=== PATIENT | female | born 1945 | race Caucasian/White ===

== ENCOUNTER 2020-01-02 19:40 | Inpatient (IN) | payer MEDICARE ==
[~2020-01-02] VITALS: Ht 160 cm; Wt 49.5 kg
[2020-01-02 19:20] VITALS: BP 163/67
[2020-01-02] MEDS ORDERED: IV NORMAL SALINE 1000ML BAG 1,000 ML IV SCH (20:47)
[2020-01-02] MEDS ORDERED: ACETAMINOPHEN 650 MG SUPP.RECT. PR PRN (21:00)
[2020-01-02] MEDS ORDERED: DOCUSATE SODIUM 100 MG CAPSULE. PO PRN (21:00)
[2020-01-02] MEDS ORDERED: ACETAMINOPHEN 325 MG TABLET. PO PRN (21:00)
[2020-01-02] MEDS ORDERED: ALBUTEROL SULFATE 2.5 MG/3 ML NEBU. NEB PRN (21:00)
[2020-01-02] MEDS ORDERED: POLYETHYLENE GLYCOL 3350 17 GM PACKET. PO PRN (21:00)
[2020-01-02] MEDS: fentaNYL PF VIAL 100 MCG/2 ML VIAL IVP PRN (21:05)
[2020-01-02] MEDS: PSYLLIUM HUSK (SUGAR FREE) 1 PKT PACKET PO SCH (22:36)
[2020-01-02] MEDS: MONTELUKAST SODIUM 10 MG TABLET. PO SCH (22:36)
[2020-01-02 23:00] VITALS: BP 131/68
[2020-01-03] VITALS (12 sets, daily range): BP systolic 86–145; BP diastolic 37–73
[2020-01-03] MEDS: fentaNYL PF VIAL 100 MCG/2 ML VIAL IVP PRN (00:32)
[2020-01-03 04:25] LABS: BASO % 0 % (0-3); EOS # 0.1 x10^3/uL (0.0-0.7); EOS % 0 % (0-3); HEMATOCRIT 22.2 % (36.0-47.0); LYMPH # 0.6 x10^3/uL (1.0-4.8); LYMPH % 5 % (24-48); MEAN CORPUSCULAR HEMOGLOBIN 25 pg (25-35); MEAN CORPUSCULAR HGB CONC 30 g/dL (31-37); MEAN CORPUSCULAR VOLUME 82 fL (79-100); MONO % 8 % (0-9); NEUT # 10.3 x10^3/uL (1.8-7.7); NEUT % 86 % (31-73); PLATELET COUNT 208 x10^3/uL (140-400); RED CELL DISTRIBUTION WIDTH 17.7 % (11.5-14.5); WHITE BLOOD COUNT 11.9 x10^3/uL (4.0-11.0)
[2020-01-03 04:28] LABS: HEMOGLOBIN 6.7 g/dL (12.0-15.5)
[2020-01-03 04:40] LABS: PROTHROMBIN TIME PATIENT 14.8 SEC (11.7-14.0)
[2020-01-03] MEDS ORDERED: diphenhydrAMINE ORAL ELIXIR 12.5 MG/5 ML ML PO PRN (05:15)
[2020-01-03] MEDS ORDERED: diphenhydrAMINE HCL 25 MG CAPSULE PO PRN (05:15)
[2020-01-03] MEDS ORDERED: ACETAMINOPHEN 325 MG TABLET. PO PRN (05:15)
[2020-01-03 05:40] LABS: ALBUMIN 1.8 g/dL (3.4-5.0); ALBUMIN/GLOBULIN RATIO 0.4 (1.0-1.7); CALCIUM 7.7 mg/dL (8.5-10.1); GFR 54.3; POTASSIUM 3.5 mmol/L (3.5-5.1); TOTAL BILIRUBIN 0.3 mg/dL (0.2-1.0); TOTAL PROTEIN 6.8 g/dL (6.4-8.2)
[2020-01-03] MEDS: IPRATRPIUM/ALBUTEROL 0.5/2.5MG 3 ML NEBU. NEB SCH ×5 (07:22→22:00)
[2020-01-03] MEDS: HYDROcodone/APAP 5/325MG 1 TAB TABLET PO PRN ×3 (08:37→21:14)
[2020-01-03 09:06] LABS: % BANDS 12 % (0-9); % LYMPHS 6 % (24-48); % MONOS 7 % (0-10); % SEGS 75 % (35-66)
[2020-01-03 09:09] LABS: PLT ESTIMATE ADEQUATE (ADEQUATE)
[2020-01-03 09:10] LABS: ANISOCYTOSIS SLIGHT; POLYCHROMASIA SLIGHT
[2020-01-03 09:11] LABS: SCHISTOCYTES OCC; TEAR DROP CELLS OCC
--- NOTE | 2020-01-03 12:48 | HP ---
ADMIT DATE: 01/03/2020 CHIEF COMPLAINT: Fall/pelvic fracture. HISTORY OF PRESENT ILLNESS: The patient is a pleasant elderly female who fell and has a pelvic fracture. We have admitted the patient. We are consulting Orthopedics. She also is anemic. We are giving her transfusion currently. The patient is being examined on the medical floor where she is doing relatively well. PAST MEDICAL HISTORY: COPD, tobacco abuse although I think she has quit, chronic pain, arthritis, asthma, and constipation. ALLERGIES: CEPHALOSPORINS AND BUPROPION. FAMILY HISTORY: Hypertension. SOCIAL HISTORY: I think she quit smoking, no drinking or drugs. MEDICATIONS: Reviewed, please refer to the MRAD. REVIEW OF SYSTEMS: GENERAL: No history of weight change, weakness or fevers. SKIN: No bruising, hair changes or rashes. EYES: No blurred, double or loss of vision. NOSE AND THROAT: No history of nosebleeds, hoarseness or sore throat. HEART: No history of palpitations, chest pain or shortness of breath on exertion. LUNGS: Denies cough, hemoptysis, wheezing or shortness of breath. GASTROINTESTINAL: Denies changes in appetite, nausea, vomiting, diarrhea or constipation. GENITOURINARY: She complains of pelvic pain. NEUROLOGIC: She complains of weakness and falls. PSYCHIATRIC: No history of panic, anxiety or depression. ENDOCRINE: No history of heat or cold intolerance, polyuria or polydipsia. EXTREMITIES: Denies muscle weakness, joint pain, pain on walking or stiffness. PHYSICAL EXAMINATION: VITALS: Within normal limits and are stable. GENERAL: No apparent distress. Alert and oriented. HEENT: Normal cephalic atraumatic, external auditory canals are patent EYES: Extraocular muscles are intact, pupils are equally round and reactive to light and accommodation MUSCULOSKELETAL: Well developed, well nourished, good range of motion ENDOCRINE: No thyromegaly was palpated LYMPHATICS: No cervical chain or axillary nodes were noted HEMATOPOIETIC: No bruising NECK: Supple, no JVD, no thyromegaly was noted. LUNGS: She has decreased breath sounds consistent with COPD. HEART: RRR, S1, S2 present. Peripheral pulses intact, no obvious murmurs were noted. ABDOMEN: Soft, nontender. Positive bowel sounds no organomegaly, normal bowel sounds. EXTREMITIES: Without any cyanosis, clubbing, or edema. Pedal pulses intact, Homans sign is negative. NEUROLOGIC: Normal speech, normal tone. A and O x 3, moves all extremities, no obvious focal deficits. PSYCHIATRIC: Normal affect, normal mood. Stable. SKIN: No ulcerations or rashes, good skin turgor, no jaundice. VASCULAR: Good capillary refill, neurovascular bundle appears to be intact. LABORATORY DATA: Hemoglobin is 6.7. Sodium is low at 132. ASSESSMENT AND PLAN: Fall with pelvic fracture with incidental finding of anemia and hyponatremia. The patient has been admitted. We are transfusing her. We have consulted Orthopedics. PRN pain meds, IV fluids, home meds, DVT prophylaxis. Full code. Suspect she will need to go to [facility] in a couple of days. PEGGY SILVA DO DR: ALEKSANDRA/mari JOB#: [id number] / [id number]
[2020-01-03 15:48] LABS: BILIRUBIN,URINE SMALL (NEG); CLARITY,URINE CLEAR; COLOR,URINE YELLOW; NITRITE,URINE POSITIVE (NEG); PROTEIN,URINE 30 mg/dL (NEG-TRACE)
[2020-01-03 16:01] LABS: BACTERIA,URINE MANY /HPF (0-FEW); SQUAMOUS EPITHELIAL CELL,UR MANY /LPF; WBC,URINE >40 /HPF (0-4)
[2020-01-03 16:02] LABS: HYALINE CASTS, URINE MANY /HPF
--- NOTE | 2020-01-03 20:19 | CONS ---
DATE OF CONSULTATION: 01/03/2020 REQUESTING PHYSICIAN: Dr. Yao Tai. REASON FOR CONSULTATION: Pelvic fracture. HISTORY OF PRESENT ILLNESS: The patient is a 74-year-old female who sustained a fall about 6 days and has had difficulty walking in the meantime and she has had received a transfusion for anemia as well. She indicates no difficulties getting around previously prior to the fall, but has been painful since and also complains of some back pain. PAST MEDICAL HISTORY: Significant for COPD, history of smoking, arthritis, asthma, chronic pain, and constipation. PAST SURGICAL HISTORY: No significant surgical history. ALLERGIES: INCLUDE BUPROPION AND CEPHALOSPORINS. FAMILY HISTORY: Hypertension. SOCIAL HISTORY: Denies alcohol or drug use. Has a history of smoking, but quit years ago. REVIEW OF SYSTEMS: Significant for her hip pain, particularly bearing weight on the left leg, also has some back pain with movement. Denies any radiating pain, numbness, tingling in the extremities. No chest pain, shortness of breath, head injury or visual changes. No problem with upper extremity injury. PHYSICAL EXAMINATION: GENERAL: Pleasant, cooperative 74-year-old female, alert and oriented, no acute distress. EXTREMITIES: Examination of lower extremities, she has tenderness with movement or weightbearing around the left hip, groin area. Leg lengths are equal. She has normal examination of the right hip, bilateral knees and ankles. She has normal alignment, stability, bilateral shoulders, elbows, wrists. Intact motor function, distal pulses, sensation in both upper and lower extremities throughout. IMAGING: X-rays show a left superior and inferior pubic rami fractures that are acceptably aligned. IMPRESSION: Left superior and inferior pubic rami fractures and also has some L2 compression fracture, apparently indeterminant age. TREATMENT PLAN: I went over with her that in regard to her pubic rami fractures this is expected to be nonoperatively treated and I expect over the next several weeks that pain will be less and less. In the interim, she can have protected weightbearing with a walker or as necessary for her safety and continue medical management and pain control in the interim. All her questions were answered. GERRY PARISH MD DR: MCKENAN/mari JOB#: [id number] / [id number]
[2020-01-03] MEDS: PSYLLIUM HUSK (SUGAR FREE) 1 PKT PACKET PO SCH (21:14)
[2020-01-03] MEDS: MONTELUKAST SODIUM 10 MG TABLET. PO SCH (21:14)
[2020-01-04 03:40] VITALS: BP 133/60
[2020-01-04 06:49] LABS: HEMATOCRIT 27.7 % (36.0-47.0); HEMOGLOBIN 8.7 g/dL (12.0-15.5); RED BLOOD COUNT 3.34 x10^6/uL (3.50-5.40); RED CELL DISTRIBUTION WIDTH 16.8 % (11.5-14.5); WHITE BLOOD COUNT 5.5 x10^3/uL (4.0-11.0)
[2020-01-04 07:00] VITALS: BP 148/63
[2020-01-04] MEDS: IPRATRPIUM/ALBUTEROL 0.5/2.5MG 3 ML NEBU. NEB SCH ×5 (08:08→21:48)
--- NOTE | 2020-01-04 08:45 | NUR ---
SW following. Discussed with RN, pt from home, requiring 2L. RN advised no surgical plans- PT/OT ordered but have not worked with pt yet. SW will continue to follow.
--- NOTE | 2020-01-04 10:09 | PDOC ---
PROGRESS NOTES History of Present Illness History of Present Illness ASSESSMENT AND PLAN: Fall with pelvic fracture Left superior and inferior pubic rami fractures and also has some L2 compression fracture, apparently indeterminant age. anemia , normocytic hyponatremia. possible SIADH SEVERE protein-caloric malnutrition ACUTE HYPOXIC RESP FAILURE PLAN admitted. transfusing PRN consulted Orthopedics. PRN pain meds, IV fluids, home meds, DVT prophylaxis. Full code. CONSIDER senior living BMP TODAY pt/ot GI CONSULT REC OUTPT SCOPES OCCULT STOOLS SERUM OSMOLALITY CXR 38 MIN PT exam, chart review, > 50% of time spent with exam, chart review, pt care coordination Vitals Vitals Vital Signs Date Time Temp Pulse Resp B/P (MAP) Pulse Ox O2 Delivery O2 Flow Rate FiO2 01/04/20 08:08 99 Nasal Cannula 2.0 01/04/20 07:00 97.9 77 17 148/63 (91) 97.9 Physical Exam Physical Exam GENERAL: No apparent distress. Alert and oriented. HEENT: Normal cephalic atraumatic, external auditory canals are patent EYES: Extraocular muscles are intact, pupils are equally round and reactive to light and accommodation MUSCULOSKELETAL: Well developed, well nourished, good range of motion ENDOCRINE: No thyromegaly was palpated LYMPHATICS: No cervical chain or axillary nodes were noted HEMATOPOIETIC: No bruising NECK: Supple, no JVD, no thyromegaly was noted. LUNGS: She has decreased breath sounds consistent with COPD. HEART: RRR, S1, S2 present. Peripheral pulses intact, no obvious murmurs were noted. ABDOMEN: Soft, nontender. Positive bowel sounds no organomegaly, normal bowel sounds. EXTREMITIES: Without any cyanosis, clubbing, or edema. Pedal pulses intact, Homans sign is negative. NEUROLOGIC: Normal speech, normal tone. A and O x 3, moves all extremities, no obvious focal deficits. PSYCHIATRIC: Normal affect, normal mood. Stable. SKIN: No ulcerations or rashes, good skin turgor, no jaundice. VASCULAR: Good capillary refill, neurovascular bundle appears to be intact. General: Alert, Oriented X3, Cooperative, No acute distress Heart: Normal S1 Lungs: Clear Abdomen: Soft Extremities: No cyanosis Labs LABS IMAGING: X-rays show a left superior and inferior pubic rami fractures that are acceptably aligned. IMPRESSION: Left superior and inferior pubic rami fractures and also has some L2 compression fracture, apparently indeterminant age. Laboratory Tests Test 01/03/20 14:25 01/04/20 06:25 Urine Collection Type Unknown Urine Color Yellow Urine Clarity Clear Urine pH 6.0 (<5.0-8.0) Urine Specific [place] 1.020 (1.000-1.030) Urine Protein 30 mg/dL (NEG-TRACE) Urine Glucose (UA) Negative mg/dL (NEG) Urine Ketones (Stick) Negative mg/dL (NEG) Urine Blood Trace (NEG) Urine Nitrite Positive (NEG) Urine Bilirubin Small (NEG) Urine Urobilinogen Dipstick 1.0 mg/dL (0.2 mg/dL) Urine Leukocyte Esterase Moderate (NEG) Urine RBC 3-5 /HPF (0-2) Urine WBC >40 /HPF (0-4) Urine Squamous Epithelial Cells Many /LPF Urine Bacteria Many /HPF (0-FEW) Urine Hyaline Casts Many /HPF Urine Mucus Marked /LPF White Blood Count 5.5 x10^3/uL (4.0-11.0) Red Blood Count 3.34 x10^6/uL (3.50-5.40) Hemoglobin 8.7 g/dL (12.0-15.5) Hematocrit 27.7 % (36.0-47.0) Mean Corpuscular Volume 83 fL (79-100) Mean Corpuscular Hemoglobin 26 pg (25-35) Mean Corpuscular Hemoglobin Concent 31 g/dL (31-37) Red Cell Distribution Width 16.8 % (11.5-14.5) Platelet Count 192 x10^3/uL (140-400) Comment Review of Relevant I have reviewed the following items ariana (where applicable) has been applied. Labs Laboratory Tests Test 01/03/20 04:00 01/03/20 14:25 01/04/20 06:25 White Blood Count 11.9 x10^3/uL (4.0-11.0) 5.5 x10^3/uL (4.0-11.0) Red Blood Count 2.70 x10^6/uL (3.50-5.40) 3.34 x10^6/uL (3.50-5.40) Hemoglobin 6.7 g/dL (12.0-15.5) 8.7 g/dL (12.0-15.5) Hematocrit 22.2 % (36.0-47.0) 27.7 % (36.0-47.0) Mean Corpuscular Volume 82 fL (79-100) 83 fL (79-100) Mean Corpuscular Hemoglobin 25 pg (25-35) 26 pg (25-35) Mean Corpuscular Hemoglobin Concent 30 g/dL (31-37) 31 g/dL (31-37) Red Cell Distribution Width 17.7 % (11.5-14.5) 16.8 % (11.5-14.5) Platelet Count 208 x10^3/uL (140-400) 192 x10^3/uL (140-400) Neutrophils (%) (Auto) 86 % (31-73) Lymphocytes (%) (Auto) 5 % (24-48) Monocytes (%) (Auto) 8 % (0-9) Eosinophils (%) (Auto) 0 % (0-3) Basophils (%) (Auto) 0 % (0-3) Neutrophils # (Auto) 10.3 x10^3/uL (1.8-7.7) Lymphocytes # (Auto) 0.6 x10^3/uL (1.0-4.8) Monocytes # (Auto) 1.0 x10^3/uL (0.0-1.1) Eosinophils # (Auto) 0.1 x10^3/uL (0.0-0.7) Basophils # (Auto) 0.0 x10^3/uL (0.0-0.2) Segmented Neutrophils % 75 % (35-66) Band Neutrophils % 12 % (0-9) Lymphocytes % 6 % (24-48) Monocytes % 7 % (0-10) Platelet Estimate Adequate (ADEQUATE) Large Platelets Occ Polychromasia Slight Anisocytosis Slight Tear Drop Cells Occ Schistocytes Occ Prothrombin Time 14.8 SEC (11.7-14.0) Prothromb Time International Ratio 1.2 (0.8-1.1) Sodium Level 132 mmol/L (136-145) Potassium Level 3.5 mmol/L (3.5-5.1) Chloride Level 99 mmol/L (98-107) Carbon Dioxide Level 24 mmol/L (21-32) Anion Gap 9 (6-14) Blood Urea Nitrogen 15 mg/dL (7-20) Creatinine 1.0 mg/dL (0.6-1.0) Estimated GFR (Cockcroft-Gault) 54.3 BUN/Creatinine Ratio 15 (6-20) Glucose Level 99 mg/dL (70-99) Calcium Level 7.7 mg/dL (8.5-10.1) Total Bilirubin 0.3 mg/dL (0.2-1.0) Aspartate Amino Transf (AST/SGOT) 47 U/L (15-37) Alanine Aminotransferase (ALT/SGPT) 27 U/L (14-59) Alkaline Phosphatase 153 U/L (46-116) Total Protein 6.8 g/dL (6.4-8.2) Albumin 1.8 g/dL (3.4-5.0) Albumin/Globulin Ratio 0.4 (1.0-1.7) Urine Collection Type Unknown Urine Color Yellow Urine Clarity Clear Urine pH 6.0 (<5.0-8.0) Urine Specific [place] 1.020 (1.000-1.030) Urine Protein 30 mg/dL (NEG-TRACE) Urine Glucose (UA) Negative mg/dL (NEG) Urine Ketones (Stick) Negative mg/dL (NEG) Urine Blood Trace (NEG) Urine Nitrite Positive (NEG) Urine Bilirubin Small (NEG) Urine Urobilinogen Dipstick 1.0 mg/dL (0.2 mg/dL) Urine Leukocyte Esterase Moderate (NEG) Urine RBC 3-5 /HPF (0-2) Urine WBC >40 /HPF (0-4) Urine Squamous Epithelial Cells Many /LPF Urine Bacteria Many /HPF (0-FEW) Urine Hyaline Casts Many /HPF Urine Mucus Marked /LPF Laboratory Tests Test 01/03/20 14:25 01/04/20 06:25 Urine Collection Type Unknown Urine Color Yellow Urine Clarity Clear Urine pH 6.0 (<5.0-8.0) Urine Specific [place] 1.020 (1.000-1.030) Urine Protein 30 mg/dL (NEG-TRACE) Urine Glucose (UA) Negative mg/dL (NEG) Urine Ketones (Stick) Negative mg/dL (NEG) Urine Blood Trace (NEG) Urine Nitrite Positive (NEG) Urine Bilirubin Small (NEG) Urine Urobilinogen Dipstick 1.0 mg/dL (0.2 mg/dL) Urine Leukocyte Esterase Moderate (NEG) Urine RBC 3-5 /HPF (0-2) Urine WBC >40 /HPF (0-4) Urine Squamous Epithelial Cells Many /LPF Urine Bacteria Many /HPF (0-FEW) Urine Hyaline Casts Many /HPF Urine Mucus Marked /LPF White Blood Count 5.5 x10^3/uL (4.0-11.0) Red Blood Count 3.34 x10^6/uL (3.50-5.40) Hemoglobin 8.7 g/dL (12.0-15.5) Hematocrit 27.7 % (36.0-47.0) Mean Corpuscular Volume 83 fL (79-100) Mean Corpuscular Hemoglobin 26 pg (25-35) Mean Corpuscular Hemoglobin Concent 31 g/dL (31-37) Red Cell Distribution Width 16.8 % (11.5-14.5) Platelet Count 192 x10^3/uL (140-400) Medications Current Medications Acetaminophen/ Hydrocodone Bitart (Lortab 5/325) 1 tab PRN Q4HRS PRN PO MODERATE PAIN, SEVERE PAIN Last administered on 01/03/20at 21:14; Start 01/02/20 at 20:45 Fentanyl Citrate (Fentanyl 2ml Vial) 50 mcg Q3HRS PRN IVP PAIN Last administered on 01/03/20at 00:32; Start 01/02/20 at 20:45 Sodium Chloride 1,000 ml @ 100 mls/hr Q10H IV Last administered on 01/02/20at 21:23; Start 01/02/20 at 20:47; Stop 01/03/20 at 06:46; Status DC Acetaminophen (Tylenol) 650 mg PRN Q4HRS PRN PO TEMP OVER 100.4F OR MILD PAIN; Start 01/02/20 at 21:00 Acetaminophen (Tylenol Supp) 650 mg PRN Q4HRS PRN VA TEMP OVER 100.4F OR MILD PAIN; Start 01/02/20 at 21:00 Docusate Sodium (Colace) 100 mg PRN BID PRN PO HARD STOOLS; Start 01/02/20 at 21:00 Polyethylene Glycol (miraLAX PACKET) 17 gm PRN DAILY PRN PO CONSTIPATION; Start 01/02/20 at 21:00 Psyllium Hydrophilic Mucilloid (Metamucil Fiber Packet) 1 pkt QHS PO Last administered on 01/03/20at 21:14; Start 01/02/20 at 21:00 Albuterol/ Ipratropium (Duoneb) 3 ml Q4HRS W/A NEB Last administered on 01/04/20at 08:08; Start 01/03/20 at 06:00 Albuterol Sulfate (Ventolin Neb Soln) 2.5 mg PRN Q4HRS PRN NEB SHORTNESS OF BREATH; Start 01/02/20 at 21:00 Montelukast Sodium (Singulair) 10 mg QHS PO Last administered on 01/03/20at 21:14; Start 01/02/20 at 21:00 Acetaminophen (Tylenol) 650 mg 1X PRN PRN PO PRE-TRANSFUSION; Start 01/03/20 at 05:15 Diphenhydramine HCl (Benadryl Oral Elixir) 12.5 mg 1X PRN PRN PO PRE- TRANSFUSION; Start 01/03/20 at 05:15 Diphenhydramine HCl (Benadryl) 25 mg PRN 1X PRN PO PRE-TRANSFUSION Last administered on 01/03/20at 10:01; Start 01/03/20 at 05:15; Stop 01/03/20 at 10:01; Status DC Vitals/I & O Vital Sign - Last 24 Hours 01/03/20 01/03/20 01/03/20 01/03/20 10:28 10:47 10:49 10:58 Temp 99.1 99.0 99.0 99.0 99.1 99.0 99.0 99.0 Pulse 91 85 85 85 Resp 19 B/P (MAP) 123/57 112/52 123/55 123/55 (77) Pulse Ox 94 O2 Delivery Nasal Cannula O2 Flow Rate 2.0 01/03/20 01/03/20 01/03/20 01/03/20 13:00 14:00 14:10 14:27 Temp 98.0 98.0 98.3 98.0 98.0 98.3 Pulse 84 86 90 Resp 18 B/P (MAP) 123/56 124/56 114/48 (70) Pulse Ox 94 95 O2 Delivery Nasal Cannula Nasal Cannula O2 Flow Rate 2.0 2.0 01/03/20 01/03/20 01/03/20 01/03/20 15:20 16:01 19:00 19:30 Temp 98.0 98.0 Pulse 89 Resp 20 24 B/P (MAP) 133/56 (81) Pulse Ox 94 94 99 O2 Delivery Nasal Cannula Nasal Cannula Nasal Cannula Nasal Cannula O2 Flow Rate 2.0 2.0 2.0 2.0 01/03/20 01/03/20 01/03/20 01/03/20 20:34 21:14 22:14 23:00 Temp 99.1 99.1 Pulse 90 Resp 20 B/P (MAP) 137/50 (79) Pulse Ox 100 99 O2 Delivery Nasal Cannula Nasal Cannula Nasal Cannula Nasal Cannula O2 Flow Rate 2.0 2.0 2.0 2.0 01/04/20 01/04/20 01/04/20 01/04/20 03:40 07:00 07:40 08:08 Temp 97.8 97.9 97.8 97.9 Pulse 81 77 Resp 20 17 B/P (MAP) 133/60 (84) 148/63 (91) Pulse Ox 96 95 99 O2 Delivery Nasal Cannula Nasal Cannula Nasal Cannula Nasal Cannula O2 Flow Rate 2.0 2.0 2.0 Intake and Output 01/03/20 01/03/20 01/04/20 15:00 23:00 07:00 Intake Total 1110 ml 890 ml 0 ml Output Total 300 ml Balance 1110 ml 890 ml -300 ml CUATE HART MD Jan 04, 2020 10:09
[2020-01-04] MEDS: HYDROcodone/APAP 5/325MG 1 TAB TABLET PO PRN ×3 (10:28→21:15)
[2020-01-04 10:32] LABS: CALCIUM 7.2 mg/dL (8.5-10.1); CREATININE 1.1 mg/dL (0.6-1.0); GFR 48.7; POTASSIUM 4.1 mmol/L (3.5-5.1)
[2020-01-04 10:57] VITALS: BP 128/51
--- NOTE | 2020-01-04 12:58 | PDOC2 ---
GI CONSULT Reason For Consult: anemia HPI: HPI: 74 y/o female w/ pelvic fracture followed by ortho w/ plans for nonoperative treatment. Noted w/ anemia - Hgb 6.7 yesterday, now 8.7 s/p transfusion 1 unit pRBCs. We are asked to see for this. She denies obvious bleeding including hematemesis, hematochezia, and melena. Says she has been anemic for years and takes iron w/ garlic intermittently when she feels fatigued. H/o GERD - never really had significant heartburn/dyspepsia but her dentist told her it was affecting her teeth so she takes Prilosec QD. Has had some denture issues since pandemic began and has had some trouble w/ follow-up for adjustment - denies dysphagia but says she just has to try to chew her food really well. No n/v or abd pain. Denies diarrhea and constipation. Says was struggling to gain weight before fall/fracture and since has lost some. Had an EGD for "throat stretching" ~3 years ago in [place]. No previous colonoscopy. No GB, pancreas, or PUD history. Might have been told her "liver is off" in the past. Taking Naproxen regularly. PMH: PMH: COPD, headaches, GERD, anemia, depression cataract removal, tubal ligation FH: Family History: Other (family members "with bad livers even though they don't drink") Social History: Smoke: <1 pack per day ALCOHOL: occassional Drugs: None ROS: GEN: Denies fevers, chills, sweats HEENT: Denies blurred vision, sore throat CV: Denies chest pain RESP: Denies shortness of air, cough GI: Per HPI : Denies hematuria, dysuria ENDO: +weight loss NEURO: Denies confusion, dizziness MSK: +pelvic pain SKIN: Denies jaundice, pruritus Vitals: Vitals: Vital Signs Date Time Temp Pulse Resp B/P (MAP) Pulse Ox O2 Delivery O2 Flow Rate FiO2 01/04/20 12:39 98 Nasal Cannula 2.0 01/04/20 10:57 97.8 82 17 128/51 (76) 97.8 Labs: Labs: Laboratory Tests Test 01/03/20 14:25 01/04/20 06:25 Urine Collection Type Unknown Urine Color Yellow Urine Clarity Clear Urine pH 6.0 (<5.0-8.0) Urine Specific [place] 1.020 (1.000-1.030) Urine Protein 30 mg/dL (NEG-TRACE) Urine Glucose (UA) Negative mg/dL (NEG) Urine Ketones (Stick) Negative mg/dL (NEG) Urine Blood Trace (NEG) Urine Nitrite Positive (NEG) Urine Bilirubin Small (NEG) Urine Urobilinogen Dipstick 1.0 mg/dL (0.2 mg/dL) Urine Leukocyte Esterase Moderate (NEG) Urine RBC 3-5 /HPF (0-2) Urine WBC >40 /HPF (0-4) Urine Squamous Epithelial Cells Many /LPF Urine Bacteria Many /HPF (0-FEW) Urine Hyaline Casts Many /HPF Urine Mucus Marked /LPF White Blood Count 5.5 x10^3/uL (4.0-11.0) Red Blood Count 3.34 x10^6/uL (3.50-5.40) Hemoglobin 8.7 g/dL (12.0-15.5) Hematocrit 27.7 % (36.0-47.0) Mean Corpuscular Volume 83 fL (79-100) Mean Corpuscular Hemoglobin 26 pg (25-35) Mean Corpuscular Hemoglobin Concent 31 g/dL (31-37) Red Cell Distribution Width 16.8 % (11.5-14.5) Platelet Count 192 x10^3/uL (140-400) Sodium Level 130 mmol/L (136-145) Potassium Level 4.1 mmol/L (3.5-5.1) Chloride Level 99 mmol/L (98-107) Carbon Dioxide Level 24 mmol/L (21-32) Anion Gap 7 (6-14) Blood Urea Nitrogen 19 mg/dL (7-20) Creatinine 1.1 mg/dL (0.6-1.0) Estimated GFR (Cockcroft-Gault) 48.7 Glucose Level 88 mg/dL (70-99) Calcium Level 7.2 mg/dL (8.5-10.1) Allergies: Coded Allergies: Cephalosporins (Verified Adverse Reaction, Intermediate, jitters, 01/02/20) bupropion (Verified Adverse Reaction, Intermediate, chest pain, 01/02/20) Imaging: Imaging: - PE: GEN: NAD HEENT: Atraumatic, PERRL LUNGS: diminished anteriorly HEART: RRR ABD: NABS, S/ND/NT EXTREMITY: No edema SKIN: No rashes, no jaundice NEURO/PSYCH: A & O 3 A/P: A/P: Left superior and inferior pubic rami fractures, L2 compression fracture Anemia - chronic (?iron deficient) by history w/o obvious bleeding GERD - on daily PPI CRC screen - none ?h/o abnormal liver tests, AST and Alk Phos elevated here NSAID use Hyponatremia, hypoalbuminemia, ?UTI - per primary ?FH liver disease -- Discussed EGD and colonoscopy as outpt after fracture healed. Restart PPI. Recheck LFTs, consider liver imaging. Encouraged PO - seems difficult w/ denture issues. Other per Dr. Motley. MANOHAR BARBOUR Jan 04, 2020 12:58
[2020-01-04 13:45] LABS: ALBUMIN 1.8 g/dL (3.4-5.0); DIRECT BILIRUBIN 0.3 mg/dL (0.0-0.2); TOTAL BILIRUBIN 0.5 mg/dL (0.2-1.0); TOTAL PROTEIN 6.6 g/dL (6.4-8.2)
--- NOTE | 2020-01-04 13:52 | RAD ---
EXAM: Chest, single view. HISTORY: Anemia. COMPARISON: None. FINDINGS: A frontal view of the chest is obtained. There is mild diffuse increased interstitial opacity. There is blunting of the right costophrenic angle which may be due to scarring or a trace pleural effusion. Cardiac silhouette appears normal for portable technique. There are healed rib fractures. There is no pneumothorax. There are chronic left rib and left clavicle fractures. IMPRESSION: 1. Mild diffuse increased interstitial opacity due to chronic changes or interstitial infiltrate. There is no consolidation. 2. Right basilar atelectasis, scarring or trace pleural effusion. Electronically signed by: Pushpa Briggs MD (01/04/2020 1:48 PM) [facility]
[2020-01-04 14:47] VITALS: BP 112/47
--- NOTE | 2020-01-04 15:04 | NUR ---
HARIKA following. HARIKA reviewed PT/OT notes and the recommendation is for a SNU at discharge. HARIKA met with pt who stated she lives alone and is agreeable to SNU referral. Pt stated her dtr lives next door but agrees she would benefit from SNU prior to returning home. Pt interested in [facility] but they don't take her insurance. HARIKA spoke with Pushpa at [facility] and they do take pt's insurance. HARIKA phoned and faxed referral, , (fax) per request of pt. HARIKA completed Patient Choice of Vendor form. Pushpa from [facility] to submit for insurance authorization libbyenrique. Pt remains on . HARIKA requested COVID testing from Dr. Sparrow. HARIKA to continue following. Addendum: 01/04/20 at 1538 by JOSE MANUEL SHABAZZ Pt asked this HARIKA to call her dtr to further discuss SNU referrals. HARIKA called and spoke with pt's dtr Nazanin who stated she is fine with [facility] for SNU but would like a facility closer to [place] if at all possible. AHRIKA LVM for Hiren with [facility] to see if they take pt's insurance. HARIKA also phoned and faxed a referral to Zaira at [facility], , (fax) as they take pt's insurance. HARIKA updated Patient Choice of Vendor form. HARIKA to continue following.
[2020-01-04] MEDS: PANTOPRAZOLE 40 MG TABLET.DR. PO SCH (15:26)
[2020-01-04 19:00] VITALS: BP 132/51
[2020-01-04] MEDS: PSYLLIUM HUSK (SUGAR FREE) 1 PKT PACKET PO SCH (21:14)
[2020-01-04] MEDS: MONTELUKAST SODIUM 10 MG TABLET. PO SCH (21:15)
[2020-01-04 23:00] VITALS: BP 154/71
[2020-01-05] MEDS: HYDROcodone/APAP 5/325MG 1 TAB TABLET PO PRN ×4 (01:30→15:49)
--- NOTE | 2020-01-05 01:41 | CONS ---
DATE OF CONSULTATION: 01/04/2020 ATTENDING PHYSICIAN: Dr. Suleman George. LOCATION: She is in room 432. HISTORY OF PRESENT ILLNESS: This is a 74-year-old female who does not have any family physician since she moved from [facility] about 2 years ago, lives close to her daughter and son-in-law who both work. She has been independent with her mobility and self-care skills prior to the present hospitalization. About a week ago at middle of the night, she tried to get some water to drink and fell down and next day morning, she was having pain, difficulty to get up and walk. The patient was admitted through the Emergency Room on 01/03/2020. X-rays revealed fractured pelvis and L2 vertebral body compression fracture of indeterminate age. The patient admits some pain in left buttock area. The patient is known ALLERGIC TO CEPHALOSPORIN AND BUPROPION. PAST MEDICAL HISTORY: Includes chronic obstructive pulmonary disease, tobacco use in the past, constipation and asthmatic bronchitis. The patient denies any tingling, numbness sensation in the extremities. Since admission, the patient is on bed rest and she had an indwelling Merrill catheter and receiving oxygen by nasal cannula. The patient has not been seen by Physical Therapy yet. PHYSICAL EXAMINATION: Physical examination today revealed an elderly female. She is alert, oriented to time, place, person and circumstance and follows commands appropriately, moves all 4 extremities voluntarily. She is protecting her hip to some extent. She had 4/5 to 4+/5 grade muscle strength overall. Deep tendon reflexes are 1-2+ and symmetrical with absent ankle jerks. She had equal perception of touch and pinprick sensation bilaterally. She had bruised skin over left trochanteric bursa area. She had tenderness to palpation over left buttock and left trochanteric bursa. The patient requires help with rolling from side to side. I have not tested her transfers or ambulation skills at this time. ASSESSMENT: Elderly female with recent fall and fractured pelvis and old L2 vertebral body compression fracture. Clinical evidence of peripheral neuropathy. The patient with known chronic obstructive pulmonary disease. RECOMMENDATIONS: Agree with the plans for physical therapy and occupational therapy and transfer to half-way care unit when medically stable as she is not in a position to return home at present time and she feels like she cannot go and stay with her family as they both work. Dr. Riffel, I appreciate asking me to participate in the care of this interesting patient. I will be glad to see her for followup with you on an as-needed basis. VIDHYA RAYMOND MD DR: ILEANA/mair JOB#: [id number] / [id number]
[2020-01-05 03:00] VITALS: BP 125/55
[2020-01-05 05:03] LABS: BASO # 0.1 x10^3/uL (0.0-0.2); BASO % 1 % (0-3); EOS # 0.1 x10^3/uL (0.0-0.7); EOS % 1 % (0-3); HEMATOCRIT 23.6 % (36.0-47.0); HEMOGLOBIN 7.6 g/dL (12.0-15.5); LYMPH # 0.5 x10^3/uL (1.0-4.8); LYMPH % 7 % (24-48); MEAN CORPUSCULAR HEMOGLOBIN 26 pg (25-35); MEAN CORPUSCULAR HGB CONC 32 g/dL (31-37); MEAN CORPUSCULAR VOLUME 82 fL (79-100); MONO # 0.8 x10^3/uL (0.0-1.1); MONO % 12 % (0-9); NEUT # 5.6 x10^3/uL (1.8-7.7); NEUT % 80 % (31-73); PLATELET COUNT 182 x10^3/uL (140-400); RED BLOOD COUNT 2.89 x10^6/uL (3.50-5.40)
[2020-01-05 05:30] LABS: CALCIUM 7.7 mg/dL (8.5-10.1); GFR 54.3; POTASSIUM 4.1 mmol/L (3.5-5.1)
[2020-01-05 07:00] VITALS: BP 178/80
[2020-01-05] MEDS: IPRATRPIUM/ALBUTEROL 0.5/2.5MG 3 ML NEBU. NEB SCH ×5 (07:55→22:00)
[2020-01-05] MEDS: PANTOPRAZOLE 40 MG TABLET.DR. PO SCH (08:03)
--- NOTE | 2020-01-05 09:28 | PDOC ---
PROGRESS NOTES Subjective Subjective She admits continued left hip area pain. Objective Objective Vital Signs Date Time Temp Pulse Resp B/P (MAP) Pulse Ox O2 Delivery O2 Flow Rate FiO2 01/05/20 08:03 97 Nasal Cannula 2.0 01/05/20 07:00 98.0 83 20 178/80 (112) 98.0 Intake and Output 01/05/20 07:00 Intake Total 1500 ml Output Total 1100 ml Balance 400 ml Intake Oral 1500 ml Output Urine Total 1100 ml Physical Exam Physical Exam She is alert,supine in bed and having difficulty rolling to her side and she continues with bruised skin left hip area. She is anemic. She is getting up with physical therapy and used a bed matson. Plan Plan of Care To SNF when medically stable and to d/c Merrill catheter. Comment Review of Relevant I have reviewed the following items ariana (where applicable) has been applied. Labs Laboratory Tests Test 01/03/20 14:25 01/04/20 06:25 01/04/20 13:00 01/05/20 03:41 Urine Collection Type Unknown Urine Color Yellow Urine Clarity Clear Urine pH 6.0 (<5.0-8.0) Urine Specific [place] 1.020 (1.000-1.030) Urine Protein 30 mg/dL (NEG-TRACE) Urine Glucose (UA) Negative mg/dL (NEG) Urine Ketones (Stick) Negative mg/dL (NEG) Urine Blood Trace (NEG) Urine Nitrite Positive (NEG) Urine Bilirubin Small (NEG) Urine Urobilinogen Dipstick 1.0 mg/dL (0.2 mg/dL) Urine Leukocyte Esterase Moderate (NEG) Urine RBC 3-5 /HPF (0-2) Urine WBC >40 /HPF (0-4) Urine Squamous Epithelial Cells Many /LPF Urine Bacteria Many /HPF (0-FEW) Urine Hyaline Casts Many /HPF Urine Mucus Marked /LPF White Blood Count 5.5 x10^3/uL (4.0-11.0) 7.0 x10^3/uL (4.0-11.0) Red Blood Count 3.34 x10^6/uL (3.50-5.40) 2.89 x10^6/uL (3.50-5.40) Hemoglobin 8.7 g/dL (12.0-15.5) 7.6 g/dL (12.0-15.5) Hematocrit 27.7 % (36.0-47.0) 23.6 % (36.0-47.0) Mean Corpuscular Volume 83 fL (79-100) 82 fL (79-100) Mean Corpuscular Hemoglobin 26 pg (25-35) 26 pg (25-35) Mean Corpuscular Hemoglobin Concent 31 g/dL (31-37) 32 g/dL (31-37) Red Cell Distribution Width 16.8 % (11.5-14.5) 17.0 % (11.5-14.5) Platelet Count 192 x10^3/uL (140-400) 182 x10^3/uL (140-400) Sodium Level 130 mmol/L (136-145) 128 mmol/L (136-145) Potassium Level 4.1 mmol/L (3.5-5.1) 4.1 mmol/L (3.5-5.1) Chloride Level 99 mmol/L (98-107) 98 mmol/L (98-107) Carbon Dioxide Level 24 mmol/L (21-32) 24 mmol/L (21-32) Anion Gap 7 (6-14) 6 (6-14) Blood Urea Nitrogen 19 mg/dL (7-20) 16 mg/dL (7-20) Creatinine 1.1 mg/dL (0.6-1.0) 1.0 mg/dL (0.6-1.0) Estimated GFR (Cockcroft-Gault) 48.7 54.3 Glucose Level 88 mg/dL (70-99) 90 mg/dL (70-99) Calcium Level 7.2 mg/dL (8.5-10.1) 7.7 mg/dL (8.5-10.1) Total Bilirubin 0.5 mg/dL (0.2-1.0) Direct Bilirubin 0.3 mg/dL (0.0-0.2) Aspartate Amino Transf (AST/SGOT) 37 U/L (15-37) Alanine Aminotransferase (ALT/SGPT) 25 U/L (14-59) Alkaline Phosphatase 145 U/L (46-116) Total Protein 6.6 g/dL (6.4-8.2) Albumin 1.8 g/dL (3.4-5.0) Urine Random Sodium 15 mmol/L (Not Estab.) Neutrophils (%) (Auto) 80 % (31-73) Lymphocytes (%) (Auto) 7 % (24-48) Monocytes (%) (Auto) 12 % (0-9) Eosinophils (%) (Auto) 1 % (0-3) Basophils (%) (Auto) 1 % (0-3) Neutrophils # (Auto) 5.6 x10^3/uL (1.8-7.7) Lymphocytes # (Auto) 0.5 x10^3/uL (1.0-4.8) Monocytes # (Auto) 0.8 x10^3/uL (0.0-1.1) Eosinophils # (Auto) 0.1 x10^3/uL (0.0-0.7) Basophils # (Auto) 0.1 x10^3/uL (0.0-0.2) Laboratory Tests Test 01/04/20 13:00 01/05/20 03:41 Urine Random Sodium 15 mmol/L (Not Estab.) White Blood Count 7.0 x10^3/uL (4.0-11.0) Red Blood Count 2.89 x10^6/uL (3.50-5.40) Hemoglobin 7.6 g/dL (12.0-15.5) Hematocrit 23.6 % (36.0-47.0) Mean Corpuscular Volume 82 fL (79-100) Mean Corpuscular Hemoglobin 26 pg (25-35) Mean Corpuscular Hemoglobin Concent 32 g/dL (31-37) Red Cell Distribution Width 17.0 % (11.5-14.5) Platelet Count 182 x10^3/uL (140-400) Neutrophils (%) (Auto) 80 % (31-73) Lymphocytes (%) (Auto) 7 % (24-48) Monocytes (%) (Auto) 12 % (0-9) Eosinophils (%) (Auto) 1 % (0-3) Basophils (%) (Auto) 1 % (0-3) Neutrophils # (Auto) 5.6 x10^3/uL (1.8-7.7) Lymphocytes # (Auto) 0.5 x10^3/uL (1.0-4.8) Monocytes # (Auto) 0.8 x10^3/uL (0.0-1.1) Eosinophils # (Auto) 0.1 x10^3/uL (0.0-0.7) Basophils # (Auto) 0.1 x10^3/uL (0.0-0.2) Sodium Level 128 mmol/L (136-145) Potassium Level 4.1 mmol/L (3.5-5.1) Chloride Level 98 mmol/L (98-107) Carbon Dioxide Level 24 mmol/L (21-32) Anion Gap 6 (6-14) Blood Urea Nitrogen 16 mg/dL (7-20) Creatinine 1.0 mg/dL (0.6-1.0) Estimated GFR (Cockcroft-Gault) 54.3 Glucose Level 90 mg/dL (70-99) Calcium Level 7.7 mg/dL (8.5-10.1) Medications Current Medications Acetaminophen/ Hydrocodone Bitart (Lortab 5/325) 1 tab PRN Q4HRS PRN PO MODERATE PAIN, SEVERE PAIN Last administered on 01/05/20at 08:03; Start 01/02/20 at 20:45 Fentanyl Citrate (Fentanyl 2ml Vial) 50 mcg Q3HRS PRN IVP PAIN Last administered on 01/03/20at 00:32; Start 01/02/20 at 20:45 Sodium Chloride 1,000 ml @ 100 mls/hr Q10H IV Last administered on 01/02/20at 21:23; Start 01/02/20 at 20:47; Stop 01/03/20 at 06:46; Status DC Acetaminophen (Tylenol) 650 mg PRN Q4HRS PRN PO TEMP OVER 100.4F OR MILD PAIN; Start 01/02/20 at 21:00 Acetaminophen (Tylenol Supp) 650 mg PRN Q4HRS PRN NE TEMP OVER 100.4F OR MILD PAIN; Start 01/02/20 at 21:00 Docusate Sodium (Colace) 100 mg PRN BID PRN PO HARD STOOLS; Start 01/02/20 at 21:00 Polyethylene Glycol (miraLAX PACKET) 17 gm PRN DAILY PRN PO CONSTIPATION; Start 01/02/20 at 21:00 Psyllium Hydrophilic Mucilloid (Metamucil Fiber Packet) 1 pkt QHS PO Last administered on 01/04/20at 21:14; Start 01/02/20 at 21:00 Albuterol/ Ipratropium (Duoneb) 3 ml Q4HRS W/A NEB Last administered on 01/05/20at 07:55; Start 01/03/20 at 06:00 Albuterol Sulfate (Ventolin Neb Soln) 2.5 mg PRN Q4HRS PRN NEB SHORTNESS OF BREATH; Start 01/02/20 at 21:00 Montelukast Sodium (Singulair) 10 mg QHS PO Last administered on 01/04/20at 21:15; Start 01/02/20 at 21:00 Acetaminophen (Tylenol) 650 mg 1X PRN PRN PO PRE-TRANSFUSION; Start 01/03/20 at 05:15 Diphenhydramine HCl (Benadryl Oral Elixir) 12.5 mg 1X PRN PRN PO PRE- TRANSFUSION; Start 01/03/20 at 05:15 Diphenhydramine HCl (Benadryl) 25 mg PRN 1X PRN PO PRE-TRANSFUSION Last administered on 01/03/20at 10:01; Start 01/03/20 at 05:15; Stop 01/03/20 at 10:01; Status DC Pantoprazole Sodium (Protonix) 40 mg DAILYAC PO Last administered on 01/05/20at 08:03; Start 01/04/20 at 15:00 Vitals/I & O Vital Sign - Last 24 Hours 01/04/20 01/04/20 01/04/20 01/04/20 10:28 10:57 11:27 12:39 Temp 97.8 97.8 Pulse 82 Resp 17 B/P (MAP) 128/51 (76) Pulse Ox 99 97 97 98 O2 Delivery Nasal Cannula Nasal Cannula Nasal Cannula Nasal Cannula O2 Flow Rate 2.0 2.0 2.0 2.0 01/04/20 01/04/20 01/04/20 01/04/20 14:47 15:26 15:41 16:12 Temp 97.8 97.8 Pulse 84 Resp 17 B/P (MAP) 112/47 (68) Pulse Ox 100 100 O2 Delivery Nasal Cannula Nasal Cannula Nasal Cannula Nasal Cannula O2 Flow Rate 2.0 2.0 2.0 2.0 01/04/20 01/04/20 01/04/20 01/04/20 19:00 20:00 20:46 21:15 Temp 98.0 98.0 Pulse 92 Resp 20 18 B/P (MAP) 132/51 (78) Pulse Ox 95 98 98 O2 Delivery Nasal Cannula Nasal Cannula Nasal Cannula O2 Flow Rate 2.0 2.0 2.0 01/04/20 01/04/20 01/05/20 01/05/20 22:15 23:00 01:30 02:30 Temp 98.1 98.1 Pulse 103 Resp 18 18 18 B/P (MAP) 154/71 (98) Pulse Ox 98 93 93 93 O2 Delivery Nasal Cannula Nasal Cannula Nasal Cannula O2 Flow Rate 2.0 2.0 2.0 01/05/20 01/05/20 01/05/20 01/05/20 03:00 07:00 07:42 07:57 Temp 98.0 98.0 98.0 98.0 Pulse 86 83 Resp 18 20 B/P (MAP) 125/55 (78) 178/80 (112) Pulse Ox 93 97 97 O2 Delivery Nasal Cannula Nasal Cannula Nasal Cannula O2 Flow Rate 2.0 2.0 2.0 01/05/20 08:03 Pulse Ox 97 O2 Delivery Nasal Cannula O2 Flow Rate 2.0 Intake and Output 01/04/20 01/04/20 01/05/20 15:00 23:00 07:00 Intake Total 600 ml 660 ml 240 ml Output Total 350 ml 750 ml Balance 600 ml 310 ml -510 ml Nutrition Consultation Dietary Evaluation: Recommendations by RD: Dietary education by RD, Increase Calorie Intake, Protein supplementation Comments: [facility] altered diet oral supplements - magic cup bid Expected Outcomes/Goals: to meet >75% est nutr needs Malnutrition Findings: Body Fat Depletion (Non Severe: Mild Depletion Weight Status: Underweight VIDHYA RAYMOND MD Jan 05, 2020 09:28
--- NOTE | 2020-01-05 09:34 | PDOC ---
PROGRESS NOTES History of Present Illness History of Present Illness ASSESSMENT AND PLAN: Fall with pelvic fracture Left superior and inferior pubic rami fractures and also has some L2 compression fracture, apparently indeterminant age. anemia , normocytic hyponatremia. possible SIADH SEVERE protein-caloric malnutrition ACUTE HYPOXIC RESP FAILURE NAUSEA ATELECTASIS PLAN admitted. transfusing PRN consulted Orthopedics. PRN pain meds, IV fluids, home meds, DVT prophylaxis. Full code. CONSIDER [facility] BMP TODAY pt/ot GI CONSULT REC OUTPT SCOPES OCCULT STOOLS SERUM OSMOLALITY CXR IS c/o inc nausea today try iv zofran 4 mg q 4 hrs prn D/W RN 28 MIN PT exam, chart review, > 50% of time spent with exam, chart review, pt care coordination Vitals Vitals Vital Signs Date Time Temp Pulse Resp B/P (MAP) Pulse Ox O2 Delivery O2 Flow Rate FiO2 01/05/20 09:23 97 Room Air 01/05/20 08:03 2.0 01/05/20 07:00 98.0 83 20 178/80 (112) 98.0 Physical Exam Physical Exam GENERAL: No apparent distress. Alert and oriented. HEENT: Normal cephalic atraumatic, external auditory canals are patent EYES: Extraocular muscles are intact, pupils are equally round and reactive to light and accommodation MUSCULOSKELETAL: Well developed, well nourished, good range of motion ENDOCRINE: No thyromegaly was palpated LYMPHATICS: No cervical chain or axillary nodes were noted HEMATOPOIETIC: No bruising NECK: Supple, no JVD, no thyromegaly was noted. LUNGS: She has decreased breath sounds consistent with COPD. HEART: RRR, S1, S2 present. Peripheral pulses intact, no obvious murmurs were noted. ABDOMEN: Soft, nontender. Positive bowel sounds no organomegaly, normal bowel sounds. EXTREMITIES: Without any cyanosis, clubbing, or edema. Pedal pulses intact, Homans sign is negative. NEUROLOGIC: Normal speech, normal tone. A and O x 3, moves all extremities, no obvious focal deficits. PSYCHIATRIC: Normal affect, normal mood. Stable. SKIN: No ulcerations or rashes, good skin turgor, no jaundice. VASCULAR: Good capillary refill, neurovascular bundle appears to be intact. General: Alert, Oriented X3, Cooperative, No acute distress Heart: Normal S1 Lungs: Clear Abdomen: Soft Extremities: No cyanosis Labs LABS EXAM: Chest, single view. HISTORY: Anemia. COMPARISON: None. FINDINGS: A frontal view of the chest is obtained. There is mild diffuse increased interstitial opacity. There is blunting of the right costophrenic angle which may be due to scarring or a trace pleural effusion. Cardiac silhouette appears normal for portable technique. There are healed rib fractures. There is no pneumothorax. There are chronic left rib and left clavicle fractures. IMPRESSION: 1. Mild diffuse increased interstitial opacity due to chronic changes or interstitial infiltrate. There is no consolidation. 2. Right basilar atelectasis, scarring or trace pleural effusion. Electronically signed by: Pushpa Briggs MD (01/04/2020 1:48 PM) [facility] DICTATED and SIGNED BY: PUSHPA BRIGGS MD DATE: 01/04/20 1348 Laboratory Tests Test 01/04/20 13:00 01/05/20 03:41 Urine Random Sodium 15 mmol/L (Not Estab.) White Blood Count 7.0 x10^3/uL (4.0-11.0) Red Blood Count 2.89 x10^6/uL (3.50-5.40) Hemoglobin 7.6 g/dL (12.0-15.5) Hematocrit 23.6 % (36.0-47.0) Mean Corpuscular Volume 82 fL (79-100) Mean Corpuscular Hemoglobin 26 pg (25-35) Mean Corpuscular Hemoglobin Concent 32 g/dL (31-37) Red Cell Distribution Width 17.0 % (11.5-14.5) Platelet Count 182 x10^3/uL (140-400) Neutrophils (%) (Auto) 80 % (31-73) Lymphocytes (%) (Auto) 7 % (24-48) Monocytes (%) (Auto) 12 % (0-9) Eosinophils (%) (Auto) 1 % (0-3) Basophils (%) (Auto) 1 % (0-3) Neutrophils # (Auto) 5.6 x10^3/uL (1.8-7.7) Lymphocytes # (Auto) 0.5 x10^3/uL (1.0-4.8) Monocytes # (Auto) 0.8 x10^3/uL (0.0-1.1) Eosinophils # (Auto) 0.1 x10^3/uL (0.0-0.7) Basophils # (Auto) 0.1 x10^3/uL (0.0-0.2) Sodium Level 128 mmol/L (136-145) Potassium Level 4.1 mmol/L (3.5-5.1) Chloride Level 98 mmol/L (98-107) Carbon Dioxide Level 24 mmol/L (21-32) Anion Gap 6 (6-14) Blood Urea Nitrogen 16 mg/dL (7-20) Creatinine 1.0 mg/dL (0.6-1.0) Estimated GFR (Cockcroft-Gault) 54.3 Glucose Level 90 mg/dL (70-99) Calcium Level 7.7 mg/dL (8.5-10.1) Comment Review of Relevant I have reviewed the following items ariana (where applicable) has been applied. Labs Laboratory Tests Test 01/03/20 14:25 01/04/20 06:25 01/04/20 13:00 01/05/20 03:41 Urine Collection Type Unknown Urine Color Yellow Urine Clarity Clear Urine pH 6.0 (<5.0-8.0) Urine Specific [place] 1.020 (1.000-1.030) Urine Protein 30 mg/dL (NEG-TRACE) Urine Glucose (UA) Negative mg/dL (NEG) Urine Ketones (Stick) Negative mg/dL (NEG) Urine Blood Trace (NEG) Urine Nitrite Positive (NEG) Urine Bilirubin Small (NEG) Urine Urobilinogen Dipstick 1.0 mg/dL (0.2 mg/dL) Urine Leukocyte Esterase Moderate (NEG) Urine RBC 3-5 /HPF (0-2) Urine WBC >40 /HPF (0-4) Urine Squamous Epithelial Cells Many /LPF Urine Bacteria Many /HPF (0-FEW) Urine Hyaline Casts Many /HPF Urine Mucus Marked /LPF White Blood Count 5.5 x10^3/uL (4.0-11.0) 7.0 x10^3/uL (4.0-11.0) Red Blood Count 3.34 x10^6/uL (3.50-5.40) 2.89 x10^6/uL (3.50-5.40) Hemoglobin 8.7 g/dL (12.0-15.5) 7.6 g/dL (12.0-15.5) Hematocrit 27.7 % (36.0-47.0) 23.6 % (36.0-47.0) Mean Corpuscular Volume 83 fL (79-100) 82 fL (79-100) Mean Corpuscular Hemoglobin 26 pg (25-35) 26 pg (25-35) Mean Corpuscular Hemoglobin Concent 31 g/dL (31-37) 32 g/dL (31-37) Red Cell Distribution Width 16.8 % (11.5-14.5) 17.0 % (11.5-14.5) Platelet Count 192 x10^3/uL (140-400) 182 x10^3/uL (140-400) Sodium Level 130 mmol/L (136-145) 128 mmol/L (136-145) Potassium Level 4.1 mmol/L (3.5-5.1) 4.1 mmol/L (3.5-5.1) Chloride Level 99 mmol/L (98-107) 98 mmol/L (98-107) Carbon Dioxide Level 24 mmol/L (21-32) 24 mmol/L (21-32) Anion Gap 7 (6-14) 6 (6-14) Blood Urea Nitrogen 19 mg/dL (7-20) 16 mg/dL (7-20) Creatinine 1.1 mg/dL (0.6-1.0) 1.0 mg/dL (0.6-1.0) Estimated GFR (Cockcroft-Gault) 48.7 54.3 Glucose Level 88 mg/dL (70-99) 90 mg/dL (70-99) Calcium Level 7.2 mg/dL (8.5-10.1) 7.7 mg/dL (8.5-10.1) Total Bilirubin 0.5 mg/dL (0.2-1.0) Direct Bilirubin 0.3 mg/dL (0.0-0.2) Aspartate Amino Transf (AST/SGOT) 37 U/L (15-37) Alanine Aminotransferase (ALT/SGPT) 25 U/L (14-59) Alkaline Phosphatase 145 U/L (46-116) Total Protein 6.6 g/dL (6.4-8.2) Albumin 1.8 g/dL (3.4-5.0) Urine Random Sodium 15 mmol/L (Not Estab.) Neutrophils (%) (Auto) 80 % (31-73) Lymphocytes (%) (Auto) 7 % (24-48) Monocytes (%) (Auto) 12 % (0-9) Eosinophils (%) (Auto) 1 % (0-3) Basophils (%) (Auto) 1 % (0-3) Neutrophils # (Auto) 5.6 x10^3/uL (1.8-7.7) Lymphocytes # (Auto) 0.5 x10^3/uL (1.0-4.8) Monocytes # (Auto) 0.8 x10^3/uL (0.0-1.1) Eosinophils # (Auto) 0.1 x10^3/uL (0.0-0.7) Basophils # (Auto) 0.1 x10^3/uL (0.0-0.2) Laboratory Tests Test 01/04/20 13:00 01/05/20 03:41 Urine Random Sodium 15 mmol/L (Not Estab.) White Blood Count 7.0 x10^3/uL (4.0-11.0) Red Blood Count 2.89 x10^6/uL (3.50-5.40) Hemoglobin 7.6 g/dL (12.0-15.5) Hematocrit 23.6 % (36.0-47.0) Mean Corpuscular Volume 82 fL (79-100) Mean Corpuscular Hemoglobin 26 pg (25-35) Mean Corpuscular Hemoglobin Concent 32 g/dL (31-37) Red Cell Distribution Width 17.0 % (11.5-14.5) Platelet Count 182 x10^3/uL (140-400) Neutrophils (%) (Auto) 80 % (31-73) Lymphocytes (%) (Auto) 7 % (24-48) Monocytes (%) (Auto) 12 % (0-9) Eosinophils (%) (Auto) 1 % (0-3) Basophils (%) (Auto) 1 % (0-3) Neutrophils # (Auto) 5.6 x10^3/uL (1.8-7.7) Lymphocytes # (Auto) 0.5 x10^3/uL (1.0-4.8) Monocytes # (Auto) 0.8 x10^3/uL (0.0-1.1) Eosinophils # (Auto) 0.1 x10^3/uL (0.0-0.7) Basophils # (Auto) 0.1 x10^3/uL (0.0-0.2) Sodium Level 128 mmol/L (136-145) Potassium Level 4.1 mmol/L (3.5-5.1) Chloride Level 98 mmol/L (98-107) Carbon Dioxide Level 24 mmol/L (21-32) Anion Gap 6 (6-14) Blood Urea Nitrogen 16 mg/dL (7-20) Creatinine 1.0 mg/dL (0.6-1.0) Estimated GFR (Cockcroft-Gault) 54.3 Glucose Level 90 mg/dL (70-99) Calcium Level 7.7 mg/dL (8.5-10.1) Medications Current Medications Acetaminophen/ Hydrocodone Bitart (Lortab 5/325) 1 tab PRN Q4HRS PRN PO MODERATE PAIN, SEVERE PAIN Last administered on 01/05/20at 08:03; Start 01/02/20 at 20:45 Fentanyl Citrate (Fentanyl 2ml Vial) 50 mcg Q3HRS PRN IVP PAIN Last administered on 01/03/20at 00:32; Start 01/02/20 at 20:45 Sodium Chloride 1,000 ml @ 100 mls/hr Q10H IV Last administered on 01/02/20at 21:23; Start 01/02/20 at 20:47; Stop 01/03/20 at 06:46; Status DC Acetaminophen (Tylenol) 650 mg PRN Q4HRS PRN PO TEMP OVER 100.4F OR MILD PAIN; Start 01/02/20 at 21:00 Acetaminophen (Tylenol Supp) 650 mg PRN Q4HRS PRN ND TEMP OVER 100.4F OR MILD PAIN; Start 01/02/20 at 21:00 Docusate Sodium (Colace) 100 mg PRN BID PRN PO HARD STOOLS; Start 01/02/20 at 21:00 Polyethylene Glycol (miraLAX PACKET) 17 gm PRN DAILY PRN PO CONSTIPATION; Start 01/02/20 at 21:00 Psyllium Hydrophilic Mucilloid (Metamucil Fiber Packet) 1 pkt QHS PO Last administered on 01/04/20at 21:14; Start 01/02/20 at 21:00 Albuterol/ Ipratropium (Duoneb) 3 ml Q4HRS W/A NEB Last administered on 01/05/20at 07:55; Start 01/03/20 at 06:00 Albuterol Sulfate (Ventolin Neb Soln) 2.5 mg PRN Q4HRS PRN NEB SHORTNESS OF BREATH; Start 01/02/20 at 21:00 Montelukast Sodium (Singulair) 10 mg QHS PO Last administered on 01/04/20at 21:15; Start 01/02/20 at 21:00 Acetaminophen (Tylenol) 650 mg 1X PRN PRN PO PRE-TRANSFUSION; Start 01/03/20 at 05:15; Stop 01/05/20 at 09:26; Status DC Diphenhydramine HCl (Benadryl Oral Elixir) 12.5 mg 1X PRN PRN PO PRE- TRANSFUSION; Start 01/03/20 at 05:15 Diphenhydramine HCl (Benadryl) 25 mg PRN 1X PRN PO PRE-TRANSFUSION Last administered on 01/03/20at 10:01; Start 01/03/20 at 05:15; Stop 01/03/20 at 10:01; Status DC Pantoprazole Sodium (Protonix) 40 mg DAILYAC PO Last administered on 01/05/20at 08:03; Start 01/04/20 at 15:00 Ferrous Sulfate (Feosol) 325 mg BID PO ; Start 01/05/20 at 10:00 Vitals/I & O Vital Sign - Last 24 Hours 01/04/20 01/04/20 01/04/20 01/04/20 10:28 10:57 11:27 12:39 Temp 97.8 97.8 Pulse 82 Resp 17 B/P (MAP) 128/51 (76) Pulse Ox 99 97 97 98 O2 Delivery Nasal Cannula Nasal Cannula Nasal Cannula Nasal Cannula O2 Flow Rate 2.0 2.0 2.0 2.0 01/04/20 01/04/20 01/04/20 01/04/20 14:47 15:26 15:41 16:12 Temp 97.8 97.8 Pulse 84 Resp 17 B/P (MAP) 112/47 (68) Pulse Ox 100 100 O2 Delivery Nasal Cannula Nasal Cannula Nasal Cannula Nasal Cannula O2 Flow Rate 2.0 2.0 2.0 2.0 01/04/20 01/04/20 01/04/20 01/04/20 19:00 20:00 20:46 21:15 Temp 98.0 98.0 Pulse 92 Resp 20 18 B/P (MAP) 132/51 (78) Pulse Ox 95 98 98 O2 Delivery Nasal Cannula Nasal Cannula Nasal Cannula O2 Flow Rate 2.0 2.0 2.0 01/04/20 01/04/20 01/05/20 01/05/20 22:15 23:00 01:30 02:30 Temp 98.1 98.1 Pulse 103 Resp 18 20 18 18 B/P (MAP) 154/71 (98) Pulse Ox 98 93 93 93 O2 Delivery Nasal Cannula Nasal Cannula Nasal Cannula O2 Flow Rate 2.0 2.0 2.0 01/05/20 01/05/20 01/05/20 01/05/20 03:00 07:00 07:42 07:57 Temp 98.0 98.0 98.0 98.0 Pulse 86 83 Resp 18 20 B/P (MAP) 125/55 (78) 178/80 (112) Pulse Ox 93 97 97 O2 Delivery Nasal Cannula Nasal Cannula Nasal Cannula O2 Flow Rate 2.0 2.0 2.0 01/05/20 01/05/20 08:03 09:23 Pulse Ox 97 97 O2 Delivery Nasal Cannula Room Air O2 Flow Rate 2.0 Intake and Output 01/04/20 01/04/20 01/05/20 15:00 23:00 07:00 Intake Total 600 ml 660 ml 240 ml Output Total 350 ml 750 ml Balance 600 ml 310 ml -510 ml Nutrition Consultation Dietary Evaluation: Recommendations by RD: Dietary education by RD, Increase Calorie Intake, Protein supplementation Comments: [facility] altered diet oral supplements - magic cup bid Expected Outcomes/Goals: to meet >75% est nutr needs Malnutrition Findings: Body Fat Depletion (Non Severe: Mild Depletion Weight Status: Underweight CUATE HART MD Jan 05, 2020 09:34
--- NOTE | 2020-01-05 09:54 | PDOC ---
Subjective: Subjective: Eating okay. Hasn't stooled - doesn't feel the urge, doesn't want laxative, etc. No bleeding. Objective: Objective: Nurse present - trying off O2. Note getting iron BID now. Vital Signs: Vital Signs Date Time Temp Pulse Resp B/P (MAP) Pulse Ox O2 Delivery O2 Flow Rate FiO2 01/05/20 09:23 97 Room Air 01/05/20 08:03 2.0 01/05/20 07:00 98.0 83 20 178/80 (112) 98.0 Labs: Laboratory Tests Test 01/04/20 13:00 01/05/20 03:41 Urine Random Sodium 15 mmol/L White Blood Count 7.0 x10^3/uL Red Blood Count 2.89 x10^6/uL Hemoglobin 7.6 g/dL Hematocrit 23.6 % Mean Corpuscular Volume 82 fL Mean Corpuscular Hemoglobin 26 pg Mean Corpuscular Hemoglobin Concent 32 g/dL Red Cell Distribution Width 17.0 % Platelet Count 182 x10^3/uL Neutrophils (%) (Auto) 80 % Lymphocytes (%) (Auto) 7 % Monocytes (%) (Auto) 12 % Eosinophils (%) (Auto) 1 % Basophils (%) (Auto) 1 % Neutrophils # (Auto) 5.6 x10^3/uL Lymphocytes # (Auto) 0.5 x10^3/uL Monocytes # (Auto) 0.8 x10^3/uL Eosinophils # (Auto) 0.1 x10^3/uL Basophils # (Auto) 0.1 x10^3/uL Sodium Level 128 mmol/L Potassium Level 4.1 mmol/L Chloride Level 98 mmol/L Carbon Dioxide Level 24 mmol/L Anion Gap 6 Blood Urea Nitrogen 16 mg/dL Creatinine 1.0 mg/dL Estimated GFR (Cockcroft-Gault) 54.3 Glucose Level 90 mg/dL Calcium Level 7.7 mg/dL URINE CULTURE Preliminary Preliminary GREATER THAN 100,000 CFU/ML GRAM NEGATIVE RODS on 01/05/20 at 0934 FINAL ID= [ESCHERICHIA COLI] PE: GEN: NAD LUNGS: diminished, some coarseness HEART: RRR ABD: S/ND/NT NEURO/PSYCH: A & O 3 A/P: Pubic rami fractures UTI, hyponatremia Chronic anemia - s/p transfusion 1 unit pRBCs 01/02 - no obvious bleeding, h/o G ERD, no previous colonoscopy Elevated AST and Alk Phos - better -- Continue PPI, consider outpt 'scopes. Getting narcotics and iron - monitor for constipation. Justicifation of Admission Dx: Justifications for Admission: Justification of Admission Dx: Yes MANOHAR BARBOUR Jan 05, 2020 09:54
[2020-01-05] MEDS ORDERED: BISACODYL 5 MG TABLET.DR. PO PRN (10:00)
[2020-01-05] MEDS: FERROUS SULFATE 325 MG TABLET. PO SCH ×2 (10:11→21:37)
[2020-01-05 11:00] VITALS: BP 140/63
[2020-01-05] MEDS ORDERED: ONDANSETRON PF 4 MG/2 ML VIAL. IVP PRN (12:00)
--- NOTE | 2020-01-05 14:37 | NUR ---
SW following. HARIKA reviewed chart and spoke with RN. Pt will not discharge today per Hgb. HARIKA spoke with pt's dtr who stated that pt is anemic. Pt's dtr stated that [facility] is her first choice for SNU for pt per its location. HARIKA spoke with Zaira at [facility] and they have accepted the patient clinically and will submit for authorization. Pt is covered at 100% for 20 days and will have a daily co-pay of $178 after day 20. Pt's dtr notified of this benefit. HARIKA called Pushpa from [facility] and asked her to cancel request for authorization. HARIKA spoke with Elvie from [facility], and informed her of pt's anticipated discharge of 01/06/2020 and asked that she attempt to get authorization approval by tomorrow morning. HARIKA to continue following.
[2020-01-05 14:47] VITALS: BP 134/50
[2020-01-05] MEDS: CIPROFLOXACIN 200MG PREMIX 100 ML IV SCH ×2 (15:26→21:37)
--- NOTE | 2020-01-05 15:44 | RAD ---
EXAM: CT Abdomen and Pelvis without IV contrast INDICATION: Reason: ANEMIA, POSSIBLE MASS / Spl. Instructions: / History: TECHNIQUE: Multi-detector row CT images were acquired from the lung bases through the abdomen and pelvis without the use of IV contrast. Sagittal and coronal images were acquired from the transaxial data. All CT scans performed at this facility utilize dose optimization techniques as appropriate to the exam, including the following: Automated exposure control and adjustment of the mA and/or KV according to patient size (this includes techniques or standardized protocols for targeted exams where dose is indication/reason for exam). ORAL CONTRAST: None COMPARISON: 01/04/2020 chest x-ray FINDINGS: The absence of IV contrast limits evaluation of soft tissue pathology. LOWER CHEST: Small bilateral pleural effusions. Cardiomegaly. Bibasilar atelectasis. LIVER: Unremarkable BILIARY SYSTEM: Gallbladder is mildly distended. Bile ducts are not dilated. PANCREAS: Unremarkable SPLEEN: Unremarkable ADRENALS: Unremarkable KIDNEYS & URETERS: Unremarkable BLADDER: Unremarkable REPRODUCTIVE ORGANS: Unremarkable GASTROINTESTINAL: Stomach shows mild diffuse wall thickening, nonspecific it is under distended. The small bowel is unremarkable.'S large bowel shows scattered colonic diverticulosis most conspicuous in the sigmoid colon and moderate stool throughout the large bowel. The appendix is not well seen and may be surgically absent. There are no findings of acute appendicitis.. MESENTERY/PERITONEUM/RETROPERITONEUM: No free air. Trace free fluid. VASCULAR: Extensive arterial calcifications. No abdominal aortic aneurysm. No periaortic fluid. LYMPH NODES: No adenopathy OSSEOUS & SOFT TISSUES: Acute bilateral superior and inferior pubic ramus fractures are evident. In addition, nondisplaced bilateral acute sacral alar fractures are present Bilateral sclerosis in the femoral heads is present in the setting of generalized demineralization. Chronic bilateral L5 pars defects with grade 1-2 anterolisthesis resulting in exaggerated lumbar lordosis. Prominent Schmorl's node at the superior endplate of L2. IMPRESSION: 1. No discrete mass identified on noncontrast abdomen and pelvis CT. 2. Small bilateral pleural effusions and trace intraperitoneal free fluid. No discrete hyperdense fluid collection suggestive of an acute hematoma. 3. Acute bilateral sacral and pelvic fractures. Electronically signed by: Rita Flores MD (01/05/2020 3:41 PM) [id number]
[2020-01-05] MEDS: fentaNYL PF VIAL 100 MCG/2 ML VIAL IVP PRN ×2 (16:57→21:57)
[2020-01-05 19:00] VITALS: BP 111/53
[2020-01-05] MEDS: MONTELUKAST SODIUM 10 MG TABLET. PO SCH (21:37)
[2020-01-05] MEDS: PSYLLIUM HUSK (SUGAR FREE) 1 PKT PACKET PO SCH (21:38)
[2020-01-05 22:44] VITALS: BP 107/54
[2020-01-06 03:00] VITALS: BP 112/79
[2020-01-06] MEDS: HYDROcodone/APAP 5/325MG 1 TAB TABLET PO PRN ×3 (03:05→14:24)
[2020-01-06 04:34] LABS: HEMATOCRIT 23.8 % (36.0-47.0); HEMOGLOBIN 7.6 g/dL (12.0-15.5)
[2020-01-06 04:52] LABS: ALBUMIN 1.6 g/dL (3.4-5.0); CALCIUM 7.9 mg/dL (8.5-10.1); CREATININE 1.1 mg/dL (0.6-1.0); GFR 48.7; PHOSPHORUS 2.9 mg/dL (2.6-4.7); POTASSIUM 4.6 mmol/L (3.5-5.1)
[2020-01-06] MEDS: PANTOPRAZOLE 40 MG TABLET.DR. PO SCH (06:30)
[2020-01-06 07:00] VITALS: BP 165/73
[2020-01-06] MEDS: IPRATRPIUM/ALBUTEROL 0.5/2.5MG 3 ML NEBU. NEB SCH ×2 (07:44→11:27)
[2020-01-06] MEDS: CIPROFLOXACIN 200MG PREMIX 100 ML IV SCH (07:59)
[2020-01-06] MEDS: FERROUS SULFATE 325 MG TABLET. PO SCH (08:00)
--- NOTE | 2020-01-06 08:34 | PDOC ---
PROGRESS NOTES Subjective Subjective No new complaints. Objective Objective Vital Signs Date Time Temp Pulse Resp B/P (MAP) Pulse Ox O2 Delivery O2 Flow Rate FiO2 01/06/20 08:01 Nasal Cannula 1.0 01/06/20 07:45 92 01/06/20 07:00 97.9 97 18 165/73 (103) 97.9 Intake and Output 01/06/20 07:00 Intake Total 711 ml Output Total 2400 ml Balance -1689 ml Intake Oral 611 ml IV Total 100 ml Output Urine Total 2400 ml Physical Exam Physical Exam She is supine in bed and continues with severe pain rolling from side to side and physical and occupational therapy are working with her and pain is limiting her activity. She is anemic,constipated and also had UTI with E.Coli. Plan Plan of Care Agree with plans for SNF transfer when medically stable. Comment Review of Relevant I have reviewed the following items ariana (where applicable) has been applied. Labs Laboratory Tests Test 01/04/20 13:00 01/04/20 15:15 01/05/20 03:41 01/06/20 04:15 Urine Osmolality 592 mOsmol/kg (.) Urine Random Sodium 15 mmol/L (Not Estab.) Coronavirus (COVID-19)(PCR) Not detected (NOT DETECT.) White Blood Count 7.0 x10^3/uL (4.0-11.0) Red Blood Count 2.89 x10^6/uL (3.50-5.40) Hemoglobin 7.6 g/dL (12.0-15.5) 7.6 g/dL (12.0-15.5) Hematocrit 23.6 % (36.0-47.0) 23.8 % (36.0-47.0) Mean Corpuscular Volume 82 fL (79-100) Mean Corpuscular Hemoglobin 26 pg (25-35) Mean Corpuscular Hemoglobin Concent 32 g/dL (31-37) 32 g/dL (31-37) Red Cell Distribution Width 17.0 % (11.5-14.5) Platelet Count 182 x10^3/uL (140-400) Neutrophils (%) (Auto) 80 % (31-73) Lymphocytes (%) (Auto) 7 % (24-48) Monocytes (%) (Auto) 12 % (0-9) Eosinophils (%) (Auto) 1 % (0-3) Basophils (%) (Auto) 1 % (0-3) Neutrophils # (Auto) 5.6 x10^3/uL (1.8-7.7) Lymphocytes # (Auto) 0.5 x10^3/uL (1.0-4.8) Monocytes # (Auto) 0.8 x10^3/uL (0.0-1.1) Eosinophils # (Auto) 0.1 x10^3/uL (0.0-0.7) Basophils # (Auto) 0.1 x10^3/uL (0.0-0.2) Sodium Level 128 mmol/L (136-145) 127 mmol/L (136-145) Potassium Level 4.1 mmol/L (3.5-5.1) 4.6 mmol/L (3.5-5.1) Chloride Level 98 mmol/L (98-107) 97 mmol/L (98-107) Carbon Dioxide Level 24 mmol/L (21-32) 26 mmol/L (21-32) Anion Gap 6 (6-14) 4 (6-14) Blood Urea Nitrogen 16 mg/dL (7-20) 16 mg/dL (7-20) Creatinine 1.0 mg/dL (0.6-1.0) 1.1 mg/dL (0.6-1.0) Estimated GFR (Cockcroft-Gault) 54.3 48.7 Glucose Level 90 mg/dL (70-99) 97 mg/dL (70-99) Calcium Level 7.7 mg/dL (8.5-10.1) 7.9 mg/dL (8.5-10.1) Phosphorus Level 2.9 mg/dL (2.6-4.7) Albumin 1.6 g/dL (3.4-5.0) Laboratory Tests Test 01/06/20 04:15 Hemoglobin 7.6 g/dL (12.0-15.5) Hematocrit 23.8 % (36.0-47.0) Mean Corpuscular Hemoglobin Concent 32 g/dL (31-37) Sodium Level 127 mmol/L (136-145) Potassium Level 4.6 mmol/L (3.5-5.1) Chloride Level 97 mmol/L (98-107) Carbon Dioxide Level 26 mmol/L (21-32) Anion Gap 4 (6-14) Blood Urea Nitrogen 16 mg/dL (7-20) Creatinine 1.1 mg/dL (0.6-1.0) Estimated GFR (Cockcroft-Gault) 48.7 Glucose Level 97 mg/dL (70-99) Calcium Level 7.9 mg/dL (8.5-10.1) Phosphorus Level 2.9 mg/dL (2.6-4.7) Albumin 1.6 g/dL (3.4-5.0) Microbiology 01/03/20 Urine Culture - Preliminary, Resulted Medications Current Medications Acetaminophen/ Hydrocodone Bitart (Lortab 5/325) 1 tab PRN Q4HRS PRN PO MODERATE PAIN, SEVERE PAIN Last administered on 01/06/20at 08:01; Start 01/02/20 at 20:45 Fentanyl Citrate (Fentanyl 2ml Vial) 50 mcg Q3HRS PRN IVP PAIN Last admin istered on 01/05/20at 21:57; Start 01/02/20 at 20:45 Sodium Chloride 1,000 ml @ 100 mls/hr Q10H IV Last administered on 01/02/20at 21:23; Start 01/02/20 at 20:47; Stop 01/03/20 at 06:46; Status DC Acetaminophen (Tylenol) 650 mg PRN Q4HRS PRN PO TEMP OVER 100.4F OR MILD PAIN; Start 01/02/20 at 21:00 Acetaminophen (Tylenol Supp) 650 mg PRN Q4HRS PRN CT TEMP OVER 100.4F OR MILD PAIN; Start 01/02/20 at 21:00 Docusate Sodium (Colace) 100 mg PRN BID PRN PO HARD STOOLS; Start 01/02/20 at 21:00 Polyethylene Glycol (miraLAX PACKET) 17 gm PRN DAILY PRN PO CONSTIPATION; Start 01/02/20 at 21:00; Stop 01/05/20 at 09:56; Status DC Psyllium Hydrophilic Mucilloid (Metamucil Fiber Packet) 1 pkt QHS PO Last administered on 01/05/20at 21:38; Start 01/02/20 at 21:00 Albuterol/ Ipratropium (Duoneb) 3 ml Q4HRS W/A NEB Last administered on 01/06/20at 07:44; Start 01/03/20 at 06:00 Albuterol Sulfate (Ventolin Neb Soln) 2.5 mg PRN Q4HRS PRN NEB SHORTNESS OF BREATH; Start 01/02/20 at 21:00 Montelukast Sodium (Singulair) 10 mg QHS PO Last administered on 01/05/20at 21:37; Start 01/02/20 at 21:00 Acetaminophen (Tylenol) 650 mg 1X PRN PRN PO PRE-TRANSFUSION; Start 01/03/20 at 05:15; Stop 01/05/20 at 09:26; Status DC Diphenhydramine HCl (Benadryl Oral Elixir) 12.5 mg 1X PRN PRN PO PRE- TRANSFUSION; Start 01/03/20 at 05:15; Stop 01/05/20 at 12:51; Status DC Diphenhydramine HCl (Benadryl) 25 mg PRN 1X PRN PO PRE-TRANSFUSION Last administered on 01/03/20at 10:01; Start 01/03/20 at 05:15; Stop 01/03/20 at 10:01; Status DC Pantoprazole Sodium (Protonix) 40 mg DAILYAC PO Last administered on 01/06/20at 06:30; Start 01/04/20 at 15:00 Ferrous Sulfate (Feosol) 325 mg BID PO Last administered on 01/06/20at 08:00; Start 01/05/20 at 10:00 Polyethylene Glycol (miraLAX PACKET) 17 gm DAILY PO Last administered on 01/06/20at 08:00; Start 01/06/20 at 09:00 Bisacodyl (Dulcolax Tab) 5 mg PRN DAILY PRN PO CONSTIPATION; Start 01/05/20 at 10:00 Ondansetron HCl (Zofran) 4 mg PRN Q4HRS PRN IVP NAUSEA/VOMITING Last administered on 01/05/20at 11:52; Start 01/05/20 at 12:00 Ciprofloxacin/ Dextrose 100 ml @ 100 mls/hr Q12HR IV Last administered on 01/06/20at 07:59; Start 01/05/20 at 14:00 Vitals/I & O Vital Sign - Last 24 Hours 01/05/20 01/05/20 01/05/2020 09:23 11:00 11:52 12:57 Temp 98.2 98.2 Pulse 87 Resp 18 B/P (MAP) 140/63 (88) Pulse Ox 97 95 95 95 O2 Delivery Room Air Room Air Room Air 01/05/20 01/05/20 01/05/20 01/05/20 14:47 15:49 16:28 16:57 Temp 97.9 97.9 Pulse 87 Resp 18 B/P (MAP) 134/50 (78) Pulse Ox 91 91 91 O2 Delivery Room Air Room Air Room Air Room Air 01/05/20 01/05/20 01/05/20 01/05/20 17:00 17:45 19:00 19:59 Temp 98.4 98.4 Pulse 76 Resp 18 B/P (MAP) 111/53 (72) Pulse Ox 91 91 93 90 O2 Delivery Room Air Room Air Room Air Room Air 01/05/20 01/05/20 01/06/20 01/06/20 20:00 22:44 03:00 07:00 Temp 97.9 98.7 97.9 97.9 98.7 97.9 Pulse 103 89 97 Resp 19 18 18 B/P (MAP) 107/54 (71) 112/79 (90) 165/73 (103) Pulse Ox 94 89 94 O2 Delivery Nasal Cannula Room Air Nasal Cannula Nasal Cannula O2 Flow Rate 2.0 2.0 2.0 01/06/20 01/06/20 07:45 08:01 Pulse Ox 92 O2 Delivery Nasal Cannula Nasal Cannula O2 Flow Rate 1.0 1.0 Intake and Output 01/05/20 01/05/20 01/06/20 15:00 23:00 07:00 Intake Total 290 ml 420 ml 1 ml Output Total 2100 ml 300 ml Balance 290 ml -1680 ml -299 ml Nutrition Consultation Dietary Evaluation: Recommendations by RD: Dietary education by RD, Increase Calorie Intake, Protein supplementation Comments: [facility] altered diet oral supplements - magic cup bid Expected Outcomes/Goals: to meet >75% est nutr needs Malnutrition Findings: Body Fat Depletion (Non Severe: Mild Depletion Weight Status: Underweight VIDHYA RAYMOND MD Jan 06, 2020 08:34
[2020-01-06] MEDS ORDERED: MAGNESIUM HYDROXIDE 2,400 MG/30 ML ORAL.SUSP. PO PRN (08:45)
[2020-01-06] MEDS ORDERED: BISACODYL 5 MG TABLET.DR. PO PRN (08:45)
[2020-01-06] MEDS ORDERED: POLYETHYLENE GLYCOL 3350 17 GM PACKET. PO SCH (09:00)
--- NOTE | 2020-01-06 09:01 | SNU/HH DC ---
DISCHARGE ORDERS DISCHARGE INFORMATION: CONDITION ON DISCHARGE: Stable CODE STATUS: Code Status: Full INTERMEDIATE: SNF STAY <30 DAYS: Yes HOSPICE: HOSPICE: No HOSPICE EVAL & TREAT: No LTAC: ADMIT TO LTAC: No POST DISCHARGE ORDERS: DIET AFTER DISCHARGE: Cardiac TREATMENT/EQUIPMENT ORDERS: Physical Therapy For: Evalulation/Treatment Occupational Therapy For: Evaluation/Treatment PEGGY SILVA III, DO Jan 06, 2020 09:01
--- NOTE | 2020-01-06 10:14 | PDOC ---
Subjective: Subjective: Not much appetite - says she's had a problem with appetite for awhile. No n/v, no abd pain. Doesn't like Boost, Ensure, etc. because when she eats/drinks excessively sweet things she gets cramps in her hands. Objective: Objective: D/w nurse - possible DC to SNU today, pt doesn't want to go yet. Doesn't want to get out of bed, asks for [facility]. Vital Signs: Vital Signs Date Time Temp Pulse Resp B/P (MAP) Pulse Ox O2 Delivery O2 Flow Rate FiO2 01/06/20 08:01 Nasal Cannula 1.0 01/06/20 07:45 92 01/06/20 07:00 97.9 97 18 165/73 (103) 97.9 Labs: Laboratory Tests Test 01/06/20 04:15 Hemoglobin 7.6 g/dL Hematocrit 23.8 % Mean Corpuscular Hemoglobin Concent 32 g/dL Sodium Level 127 mmol/L Potassium Level 4.6 mmol/L Chloride Level 97 mmol/L Carbon Dioxide Level 26 mmol/L Anion Gap 4 Blood Urea Nitrogen 16 mg/dL Creatinine 1.1 mg/dL Estimated GFR (Cockcroft-Gault) 48.7 Glucose Level 97 mg/dL Calcium Level 7.9 mg/dL Phosphorus Level 2.9 mg/dL Albumin 1.6 g/dL PE: GEN: NAD - a few bites of breakfast eaten LUNGS: diminished HEART: RRR ABD: S/ND/NT NEURO/PSYCH: A & O 3 - less perky than when I first met, looks uncomfortable A/P: Pubic rami fractures E coli UTI, hyponatremia (worse) - per primary Chronic anorexia, chronic anemia -- Apparently plans to DC. D/w nurse - maybe urgent care technician would have suggestion, hopefully can see before she leaves. Continue PPI, treatment for constipation while on narcs, monitor Hgb, consider outpt 'scopes. Justicifation of Admission Dx: Justifications for Admission: Justification of Admission Dx: Yes MANOHAR BARBOUR Jan 06, 2020 10:14
--- NOTE | 2020-01-06 10:42 | NUR ---
SW following. HARIKA reviewed chart and spoke with RN. HARIKA called both Zaira from [facility], and Elvie Jewell from [facility], this morning to see about authorization for SNU approval. Pt ready for discharge to SN today, 01/06/2020 pending insurance authorization. SW to continue following. Addendum: 01/06/20 at 1523 by JOSE MANUEL SHABAZZ HARIKA contacted by Elvie with [employer] and pt approved for SNU with authorization number [id number]. Pt approved from 01/06/2020 to 01/10/2020 at [facility] and [facility] is to fax request for additional days if needed to [phone]. HARIKA obtained discharge orders. HARIKA phoned and faxed discharge orders, updated clinicals and Emar to Zaira with [facility] per her request, , (fax). Pt to discharge to [facility] on 02 at 1530 via transport for [facility]. HARIKA notified RN who will call report and send packet with pt. HARIKA called and notified dtr Nazanin who communicated understanding and acceptance of the discharge plan. No further SW needs at this time.
[2020-01-06 11:00] VITALS: BP 148/58
--- NOTE | 2020-01-06 13:09 | DS ---
DATE OF DISCHARGE: 01/06/2020 ADMISSION DIAGNOSIS: Pelvic fracture. DISCHARGE DIAGNOSIS: Resolving pelvic fracture. HOSPITAL COURSE: The patient is a pleasant elderly female who presented with pelvic fracture. She was admitted. We gave her pain meds, did some physical therapy and occupational therapy. Today, I saw her and examined her. She is at her baseline. Heart tones are normal. Lungs were clear. We plan to discharge to [facility]. DISPOSITION: Skilled. ACTIVITY: As tolerated. DIET: Low sodium. MEDICATIONS: Please see MRAD. TOTAL TIME: 34 minutes. PAULAL Ursula SILVA DO DR: ALEKSANDRA/mari JOB#: [id number] / [id number]
[2020-01-06] MEDS ORDERED: LACTOBACILLUS RHAMNOSUS GG 1 CAPSULE. PO SCH (21:00)
[2020-01-06] MEDS ORDERED: CIPROFLOXACIN HCL 250 MG TABLET. PO SCH (21:00)
[2020-01-06] MEDS ORDERED: CEFDINIR 300 MG CAPSULE PO SCH (21:00)
== END 2020-01-06 15:00 | DRG 542 ==
LOC: 4 NORTH 19:40
PROVIDERS: ADMIT Internal Medicine; ATTEND Internal Medicine
PROC: 30233N1 Transfusion of Nonautologous Red Blood Cells into Peripheral Vein, Percutaneous Approach (ICD-10-PCS; principal; 2020-01-03)
DX: M84.454A Pathological fracture, pelvis, initial encounter for fracture (principal); E43 Unspecified severe protein-calorie malnutrition; J96.01 Acute respiratory failure with hypoxia; E87.1 Hypo-osmolality and hyponatremia; J98.11 Atelectasis; N39.0 Urinary tract infection, site not specified; Z68.1 Body mass index [BMI] 19.9 or less, adult; B96.20 Unspecified Escherichia coli [E. coli] as the cause of diseases classified elsewhere; D64.9 Anemia, unspecified; Z20.828 Contact with and (suspected) exposure to other viral communicable diseases; F17.210 Nicotine dependence, cigarettes, uncomplicated; M19.90 Unspecified osteoarthritis, unspecified site; G89.29 Other chronic pain; F32.9 Major depressive disorder, single episode, unspecified; G62.9 Polyneuropathy, unspecified; J44.9 Chronic obstructive pulmonary disease, unspecified; W18.39XA Other fall on same level, initial encounter; K21.9 Gastro-esophageal reflux disease without esophagitis; K59.00 Constipation, unspecified; Z82.49 Family history of ischemic heart disease and other diseases of the circulatory system; Z88.1 Allergy status to other antibiotic agents; Y93.89 Activity, other specified; Y92.89 Other specified places as the place of occurrence of the external cause; Y99.8 Other external cause status
CPT/HCPCS: 36415; 71045; 74176; 80048; 80053; 80069; 80076; 81001; 82306; 83930; 83935; 84300; 85007; 85014; 85018; 85025; 85027; 85610; 86850; 86900; 86901; 86920; 87086; 94640; 94760; J0744; J2405; J3010; J7030; P9016; 97110-GP; 97530-GO; 97530-GP; 97535-GO; G0378; Q0163; U0003-CS

== ENCOUNTER 2020-01-20 15:07 | Inpatient (IN) | payer MEDICARE ==
[~2020-01-20] VITALS: Ht 160 cm; Wt 45.6 kg
[2020-01-20 15:35] VITALS: BP 141/68
[2020-01-20] MEDS ORDERED: ACET650S19 PO (16:08)
[2020-01-20] MEDS ORDERED: ALBU2.5V14 NEB (16:08)
[2020-01-20] MEDS ORDERED: DOCU-109 PO (16:08)
[2020-01-20] MEDS ORDERED: BISA-42 PO (16:08)
[2020-01-20] MEDS ORDERED: FERR325T14 PO (16:08)
[2020-01-20 16:11] LABS: BASO # 0.1 x10^3/uL (0.0-0.2); BASO % 1 % (0-3); EOS # 0.1 x10^3/uL (0.0-0.7); EOS % 1 % (0-3); HEMATOCRIT 28.7 % (36.0-47.0); HEMOGLOBIN 9.2 g/dL (12.0-15.5); LYMPH # 0.5 x10^3/uL (1.0-4.8); LYMPH % 11 % (24-48); MEAN CORPUSCULAR HEMOGLOBIN 27 pg (25-35); MEAN CORPUSCULAR HGB CONC 32 g/dL (31-37); MEAN CORPUSCULAR VOLUME 84 fL (79-100); MONO # 0.7 x10^3/uL (0.0-1.1); MONO % 15 % (0-9); NEUT # 3.2 x10^3/uL (1.8-7.7); NEUT % 71 % (31-73); PLATELET COUNT 255 x10^3/uL (140-400); RED BLOOD COUNT 3.43 x10^6/uL (3.50-5.40); RED CELL DISTRIBUTION WIDTH 23.5 % (11.5-14.5); WHITE BLOOD COUNT 4.5 x10^3/uL (4.0-11.0)
[2020-01-20] MEDS ORDERED: POLY17PO29 PO (16:12)
[2020-01-20] MEDS ORDERED: PANT40TA77 PO (16:12)
[2020-01-20] MEDS ORDERED: MONT10TA49 PO (16:12)
[2020-01-20] MEDS ORDERED: ONDA4TAB7 PO (16:12)
[2020-01-20] MEDS ORDERED: OXYC20TA34 PO (16:12)
[2020-01-20] MEDS ORDERED: PSYL0.5215 PO (16:12)
[2020-01-20] MEDS ORDERED: HYDR-2759 PO (16:12)
[2020-01-20] MEDS ORDERED: MULT-735 PO (16:12)
[2020-01-20 16:35] LABS: ALBUMIN 1.9 g/dL (3.4-5.0); ALBUMIN/GLOBULIN RATIO 0.3 (1.0-1.7); CALCIUM 7.9 mg/dL (8.5-10.1); CREATININE 0.9 mg/dL (0.6-1.0); GFR 61.4; POTASSIUM 4.3 mmol/L (3.5-5.1); TOTAL BILIRUBIN 0.4 mg/dL (0.2-1.0); TOTAL PROTEIN 7.4 g/dL (6.4-8.2)
[2020-01-20 16:51] LABS: ANISOCYTOSIS MOD; PLT ESTIMATE ADEQUATE (ADEQUATE)
[2020-01-20 16:52] LABS: HYPOCHROMIA SLIGHT; MICROCYTOSIS SLIGHT
[2020-01-20] MEDS ORDERED: BISACODYL 5 MG TABLET.DR. PO PRN (18:45)
[2020-01-20] MEDS ORDERED: DOCUSATE SODIUM 100 MG CAPSULE. PO PRN (18:45)
[2020-01-20] MEDS ORDERED: ACETAMINOPHEN 650 MG/20.3 ML SOLUTION. PO PRN (18:45)
[2020-01-20 19:00] VITALS: BP 123/58
[2020-01-20] MEDS: ONDANSETRON ODT 4 MG TAB.RAPDIS. PO SCH ×2 (19:00→23:49)
[2020-01-20] MEDS ORDERED: ALBUTEROL SULFATE 2.5 MG/3 ML NEBU. NEB PRN (19:30)
[2020-01-20] MEDS: HYDROcodone/APAP 5/325MG 1 TAB TABLET PO PRN ×2 (19:32→23:49)
[2020-01-20] MEDS: FERROUS SULFATE 325 MG TABLET. PO SCH (19:32)
[2020-01-20] MEDS: ALBUTEROL SULFATE 2.5 MG/3 ML NEBU. NEB SCH (19:39)
--- NOTE | 2020-01-20 19:47 | HP ---
ADMIT DATE: 01/20/2020 HISTORY OF PRESENT ILLNESS: The patient is a 74-year-old female patient who was apparently admitted to [facility] after she fell and complained of left sided hip pain. At that time, she sustained pelvic fracture with incidental finding of anemia and hyponatremia. Her CT scan of the abdomen and pelvis at that time showed she has acute bilateral severe inferior pubic ramus fracture evident. She has also nondisplaced bilateral acute sacral and ulnar fractures present. She has also bilateral sclerosis in the femoral heads present in the setting of generalized demineralization, chronic bilateral L5 pars defect and grade 1-2 anterolisthesis resulting in exaggerated lumbar lordosis. When I saw her initially at [facility], her complaint was mostly in the left hip area and was initially able to walk with a walker. Over the last 3-4 days, the patient was noted to be complaining of severe pain in her right hip area and we did repeat her x-rays of right hip joint and the right femur also which showed no evidence of any fracture; however, given her age and her complaint, I was concerned that the x-ray might miss fracture and therefore a decision was made to admit her directly to [facility] to arrange for an MRI and to consult the orthopedic surgeon as her pain is becoming severe. She is unable to stand or walk, even change her position or sit on the commode. PAST MEDICAL HISTORY: Significant for chronic obstructive pulmonary disease with chronic constipation as well as asthmatic bronchitis. On her last admission, she also had hyponatremia as well as anemia. PAST SURGICAL HISTORY: Apparently unremarkable. ALLERGIES: SHE IS ALLERGIC TO CEPHALOSPORIN AND WELLBUTRIN. FAMILY HISTORY: Positive for hypertension. SOCIAL HISTORY: She is currently residing at [facility]. She does not smoke; however, she is an ex-smoker, quit years ago. She does not drink alcohol or use recreational drugs. PHYSICAL EXAMINATION: GENERAL: On examining her, she looked pale, somewhat cachectic, but no jaundice, cyanosis or thyromegaly. No jugular venous distention. No limb edema. VITAL SIGNS: Her heart rate was 86, blood pressure was 141/68, temperature was 98, respiratory rate was 18 and oxygen saturation was 96%. HEAD, EYES, EARS, NOSE AND THROAT: Showed she is normocephalic, atraumatic. NECK: Supple. CARDIAC: Normal first and second heart sounds. No gallop or murmur. CHEST: Shows central trachea, equally reduced expansion, reduced air entry, vesicular sounds. I could not really appreciate any crepitation or rhonchi. ABDOMEN: Scaphoid, soft, nontender. NEUROLOGIC: She is awake, alert, responding appropriately. All cranial nerves intact. EXTREMITIES: She moves extremities without difficulty; however, attempt to move, sit or stand induce severe pain. LABORATORY DATA: Her lab work showed her serum sodium again to be low at 129, potassium 4.3, chloride 96, bicarbonate 27, anion gap of 6, BUN 13, creatinine 0.9, estimated GFR was 61 mL per minute. Her glucose was 106, calcium was 7.9. Total bilirubin and ALT normal. AST, alkaline phosphatase elevated. Her total protein was 7.4, albumin was 1.9. Her white cell count was 4500, hemoglobin 9.2, hematocrit 28.7, MCV 84 and platelet count of 255,000 with normal manual differential. ASSESSMENT AND PLAN: In summary, this is a 74-year-old female patient who is admitted with worsening pain now mostly on the right side. The pain is aggravated by any movement. She stated that she was unable to stand or walk, and despite being on OxyContin 10 mg twice a day and hydrocodone every 4 hours, she continued to complain of severe pain, and therefore, she was admitted directly with a plan to consult orthopedic surgeon and also to arrange for an MRI of the right hip joint. JHONATAN AGUIAR MD DR: GUS/mari JOB#: [id number] / [id number]
[2020-01-20] MEDS ORDERED: NON FORMULARY ITEM (Albuterol Sulfate (Albuterol Sulfate Conc Neb Soln) 1 VIAL) NEB SCH (20:00)
[2020-01-20] MEDS: MONTELUKAST SODIUM 10 MG TABLET. PO SCH (20:54)
[2020-01-20] MEDS: oxyCODONE ER 10 MG TAB.ER.12H PO SCH (20:55)
[2020-01-20 22:52] VITALS: BP 112/58
[2020-01-21] VITALS (20 sets, daily range): BP systolic 91–152; BP diastolic 42–105
--- NOTE | 2020-01-21 03:12 | CONS ---
DATE OF CONSULTATION: 01/20/2020 REQUESTING PHYSICIAN: Dr. Maile Mares. REASON FOR CONSULTATION: Right hip fracture. HISTORY OF PRESENT ILLNESS: The patient is a 74-year-old female that is familiar to me from a previous admission about 2 weeks ago with left pubic rami fractures that were treated nonoperatively with protected mobilization and pain control. She was apparently at [facility] and was complaining of severe pain and was admitted with a diagnosis of right hip fracture. She is having significant pain as I approached her today as she was lying on her right side in bed and when she points to the area of her pain, notes pain over the right iliac crest area and really points to an equivalent area midline in her back and to the right side. She denies any radiating pain down the leg, numbness or tingling and also indicates that she has had somewhat of a difficult time finding a comfortable position to lay down and sleep and the most valuable rest that she had gotten is just getting in a comfortable position and if she is able to sleep for an extended period. PAST MEDICAL HISTORY: Significant for chronic obstructive pulmonary disease secondary to long history of smoking, asthma, chronic pain, constipation, arthritis. PAST SURGICAL HISTORY: She denies any past surgical history. ALLERGIES: INCLUDE CEPHALOSPORINS AND BUPROPION. FAMILY HISTORY: High blood pressure. SOCIAL HISTORY: Quit smoking many years ago. Denies alcohol or drug use, was currently at [facility] following a hospital admission here for pubic rami fractures. REVIEW OF SYSTEMS: Significant for her hip pain, where she is actually pointing to top of her iliac crest and right side of her low back. She said the left groin pain is less severe currently and again denies any radiating pain, numbness, tingling in the extremities and no recent traumatic episode. PHYSICAL EXAMINATION: GENERAL: She is a pleasant, cooperative 74-year-old female, alert and oriented, no acute distress, pleasant, conversational, especially when I helped her move from an uncomfortable position to lying on her back now. MUSCULOSKELETAL: On examination of her back, she has tenderness on palpation directly over the mid to lower lumbar spine, some paraspinal spasm more right side than the left and just some diffuse tenderness over the right iliac crest area. Leg lengths are equal. She has no tenderness on gentle internal and external rotation of both hips or on direct palpation over the trochanters. She has some slight tenderness on weightbearing through an extended left lower extremity, but no tenderness on the right. She has normal alignment, stability, bilateral knees and ankles with no evidence of swelling or joint line tenderness and she has intact motor function, distal pulses, sensation in both upper and lower extremities throughout with good shoulder, elbow and wrist motion and stability bilaterally. IMAGING STUDIES: Previous imaging study show left superior and inferior pubic rami fractures are acceptably aligned. Outside x-ray films from her [facility] facility by report in her chart of her right femur and hip show no evidence of fracture or significant degenerative change at the right hip. IMPRESSION: 1. History of left pubic rami fractures. 2. "Right hip pain" which actually appears to be lower lumbar pain and right iliac crest area pain. 3. Suspicion of symptomatic lumbar compression fracture. TREATMENT PLAN: She is actually very comfortable now after repositioning on her back and although she is admitted with a hip fracture diagnosis, she certainly does have resolving left-sided pubic rami fractures and I think symptoms consistent with probable symptomatic lumbar compression fracture and perhaps some muscle spasm. I note that she had an MRI scheduled for her right hip, which I really do not think is going to be productive given that her exam is benign on the right hip, I think an MRI would be useful on the lumbar spine; however, due to her back pain and suspicion of symptomatic compression fracture, especially because the acuity of her lumbar compression was somewhat in doubt with previous less sensitive imaging. I therefore think an MRI of the lumbar spine would be useful along with consultation of Interventional Radiology. The patient did ask for a urinary catheter, but I would prefer to just general infection risk and other issues to avoid that unless she is overwhelmingly limited by pain. I do not anticipate any additional orthopedic intervention as her pubic rami fractures should continue to heal with nonoperative symptomatic management. GERRY PARISH MD DR: MCKENNA/mari JOB#: [id number] / [id number] MAILE Ibrahim MD ,
[2020-01-21] MEDS: HYDROcodone/APAP 5/325MG 1 TAB TABLET PO PRN ×3 (04:01→18:03)
[2020-01-21] MEDS: ONDANSETRON ODT 4 MG TAB.RAPDIS. PO SCH ×4 (06:00→18:03)
[2020-01-21] MEDS: ALBUTEROL SULFATE 2.5 MG/3 ML NEBU. NEB SCH ×4 (07:24→20:18)
[2020-01-21] MEDS: PANTOPRAZOLE 40 MG TABLET.DR. PO SCH (07:30)
[2020-01-21] MEDS: FERROUS SULFATE 325 MG TABLET. PO SCH ×2 (08:00→18:02)
[2020-01-21] MEDS: oxyCODONE ER 10 MG TAB.ER.12H PO SCH ×2 (08:18→22:00)
[2020-01-21] MEDS: POLYETHYLENE GLYCOL 3350 17 GM PACKET. PO SCH (09:00)
[2020-01-21] MEDS: MULTIVITAMIN with MINERAL TABLET. PO SCH (09:00)
[2020-01-21] MEDS: PSYLLIUM HUSK (SUGAR FREE) 1 PKT PACKET PO SCH (09:00)
--- NOTE | 2020-01-21 10:30 | NUR ---
SW following. Discussed with RN. HARIKA verified pt is a halfwayinpatient nursing aide at [facility], pt can return when medically stable, will need updates faxed when available. PT/OT ordered. Pt has been at [facility] since 01/06/2020. HARIKA will continue to follow.
--- NOTE | 2020-01-21 10:37 | RAD ---
MRI of the lumbar spine without contrast 01/21/2020 CLINICAL HISTORY: L2 compression fracture seen on recent CT scan. TECHNIQUE: Unenhanced T1-weighted, T2-weighted and inversion recovery sagittal and T1-weighted and T2-weighted axial images of the lumbar spine were obtained. FINDINGS: Comparison is made to the patient's CT scan of the abdomen and pelvis dated 01/05/2020. Very mild S-shaped curvature of the thoracolumbar spine is seen. Moderate anterolisthesis of L5 in relation to S1 is noted. There appears to be a right unilateral pars defect (spondylolysis) at L5. Degenerative signal changes are seen involving all of the disks of the lumbar spine. Degenerative signal changes are seen within the marrow surrounding these discs. Loss of height of the L5-S1 disc is noted. The conus medullaris is normal morphology, position, and signal characteristics. An old appearing compression fracture of the superior endplate of the L2 vertebral body is seen. This vertebral body has lost approximately 30 percent of its normal height. No retropulsion of bone fragments into the central spinal canal is seen. No acute compression fracture of the lumbar vertebrae is noted. Acute fractures of the sacral ala are again seen bilaterally. At the L1-2 disc space there is a mild to moderate generalized disc bulge which is eccentric to the left. Degenerative changes are seen involving the facet joints bilaterally. There is mild ligamentum flavum hypertrophy bilaterally. These findings when combined result in mild central spinal canal stenosis. No neural foraminal stenosis is seen. At the L2-3 disc space is a mild generalized disc bulge. Degenerative changes are seen involving the facet joints bilaterally. There is mild ligamentum flavum hypertrophy bilaterally. These findings when combined do not result in significant central spinal canal or neural foraminal stenosis. At the L3-4 disc space there is a mild generalized disc bulge. Degenerative changes are seen involving the facet joints bilaterally. There is mild ligamentum flavum hypertrophy bilaterally. These findings when combined do not result in significant central spinal canal or neural foraminal stenosis. At the L4-5 disc space there is a mild generalized disc bulge. Degenerative changes are seen involving the facet joints bilaterally. There is mild to moderate ligamentum flavum hypertrophy bilaterally. Small facet joint effusions are seen bilaterally. These findings when combined result in mild central spinal canal stenosis. Mild bilateral neural foraminal stenosis is seen. At the L5-S1 disc space there is a mild to moderate generalized disc bulge. Degenerative changes are seen involving the facet joints bilaterally. There is moderate ligamentum flavum hypertrophy bilaterally. These findings when combined with the moderate anterolisthesis at this level result in mild central spinal canal stenosis. Moderate to severe right greater than left neural foraminal stenosis is seen. IMPRESSION: 1. Old appearing compression fracture involving the L2 vertebral body. No acute compression fracture of the lumbar vertebrae is seen. 2. Acute bilateral fractures of the sacral ala. 3. The changes of degenerative disc disease are seen throughout the lumbar spine. These findings result in mild central spinal canal stenosis at L1-2, L4-5 and L5-S1. Mild bilateral neural foraminal stenosis is seen at L4-5. Moderate to severe right greater than left neural foraminal stenosis is seen at L5-S1. Electronically signed by: Jersey Greenberg MD (01/21/2020 10:34 AM) [id number]
--- NOTE | 2020-01-21 11:17 | PDOC4 ---
IR NOTE: VIR Consult S: 74 yo with worsening pain in the low back extending to the right iliac and hip region in the past several days after a recent fall resulting in known left pubic ramus fracture. Pain was previously on the left but has recently migrated. O: MRI of the lumbar spine reveals old healed fracture of L2. There are bilateral pars defects at L5 with grade 2 anteriolisthesis of L5 on S1 resulting in severe neuroformainal narrowing at this level, worse on the right. Acute bilateral sacral insufficiency fractures are also noted. A: Acute bilateral sacral fractures and severe nerve root impingement at L5-S1 on the right likely producing radiculopathy. P: Bilateral sacroplasty and consult neurosurgery for evaluation of L5-S1 LUIS MANUEL SONG MD Jan 21, 2020 11:17
[2020-01-21 12:30] LABS: PROTHROMBIN TIME PATIENT 13.5 SEC (11.7-14.0)
--- NOTE | 2020-01-21 13:08 | CONS ---
DATE OF CONSULTATION: 01/21/2020 ATTENDING PHYSICIAN: Dr. Mares. REASON FOR CONSULTATION: The patient was seen at the request of Dr. Mares for rehab evaluation. HISTORY OF PRESENT ILLNESS: This is a 74-year-old female known to me since her last hospitalization about 2 weeks ago at this medical center. The patient does not have any family physician in this area, moved from [place] about 2 years ago. Lives close to her daughter and son-in-law who both work. Has been independent with her mobility and self-care skills prior to the hospitalization on 01/03/2020. She apparently tried to get some water to drink and fell down in middle of the night and next day morning, she started having the pain, difficulty to get up and walk. Admitted x-rays revealed fracture pelvis and L2 vertebral body compression fractures of indeterminate age. The patient admitted some pain in her left buttock area. ALLERGIES: SHE IS KNOWN ALLERGIC TO CEPHALOSPORINS AND BUPROPION. PAST MEDICAL HISTORY: Includes chronic obstructive pulmonary disease, tobacco use in the past, chronic constipation of asthmatic bronchitis. She denies any radiating pain to the extremities. She denies any trouble with numbness or tingling sensation or weakness in the extremities. The patient was transferred to [facility] to recuperate after fractured pelvis during her hospitalization about 2 weeks ago. She is having increasing pain in her right buttock area and the patient had MRI scan of her lumbar vertebrae done on 01/21/2020 after admission on 01/20/2020 with increasing pain in her buttock area on the right side interfering with her mobility and participation with therapy. The patient had old appearing compression fracture involving L2 vertebral body without any acute compression fracture, acute bilateral fractures of sacral ala, degenerative disk disease changes throughout the lumbar spine with mild central canal spinal stenosis at L1-L2, L4-L5 and L5-S1, mild bilateral neural foraminal stenosis at L4-L5, moderate to severe right greater than left neural foraminal stenosis was seen at L5-S1. PHYSICAL EXAMINATION: On physical examination today revealed an elderly, thin built female. She is alert and oriented to time, place, person and circumstance, follows commands appropriately, moves all 4 extremities voluntarily where she had 4+/5 grade muscle strength. She had painful range of motion of both hip, knee and ankle joints. She had tenderness to palpation mainly over sacroiliac joint area just underneath the sacroiliac joints mainly on the right side. She is independent, rolling from side to side. I have not tested her transfers or ambulation skills at this time as she admits significant pain while weightbearing on her right foot. She does not have any tenderness to palpation over lumbar spine or adjoining paraspinal muscles. Again, straight leg raising test is negative bilaterally. Her skin is intact at this time. She had 1+ right knee jerk, 2+ left knee jerk, absent ankle jerks bilaterally. She had equal perception of touch and pinprick sensation bilaterally. Overall, she had 5/5 grade muscle strength in her extremities. 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 She presents with clinical evidence of peripheral neuropathy. The patient with known chronic obstructive pulmonary disease and old L2 vertebral body compression fracture. RECOMMENDATIONS: Agree with sacroplasty to get her up as tolerated. Dr. Mares, I appreciate asking me to participate in the care of this interesting patient. I will be glad to see her for followup with you on as needed basis. VIDHYA RAYMOND MD DR: ILEANA/mari JOB#: [id number] / [id number]
[2020-01-21] MEDS ORDERED: LIDOCAINE 1% Multi-Dose 20 ML VIAL. ONE (14:00)
[2020-01-21] MEDS ORDERED: fentaNYL PF VIAL 100 MCG/2 ML VIAL ONE (14:15)
[2020-01-21] MEDS ORDERED: MIDAZOLAM HCL/PF 2 MG/2 ML VIAL. ONE (14:15)
[2020-01-21] MEDS ORDERED: fentaNYL PF VIAL 100 MCG/2 ML VIAL IV ONE (14:30)
[2020-01-21] MEDS ORDERED: MIDAZOLAM HCL/PF 2 MG/2 ML VIAL. IV ONE (14:30)
[2020-01-21] MEDS ORDERED: LIDOCAINE 1% Multi-Dose 20 ML VIAL. INJ ONE (14:30)
[2020-01-21] MEDS ORDERED: ceFAZolin SODIUM IV Push 1 GM VIAL. IVP ONE ×2 (14:54→15:15)
--- NOTE | 2020-01-21 15:18 | PDOC ---
MODERATE SEDATION ASSESSMENT RISKS/ALTERNATIVES Risks/Alternatives Risks and alternatives of this type of sedation and procedure discussed with: RISK/ALTERNATIVES: Patient H & P ON CHART H & P H & P on chart and reviewed for co-morbid conditions and appropriate labs. H&P ON CHART: Yes STATUS PREG STATUS ASSESSED: Yes MEDS/ALLERGIES REVIEWED Meds/Allergies Reviewed Medications and Allergies including time and route of recently administered narcotics and sedatives. MEDS/ALLERGIES REVIEWED: Yes ASA RATING ASA RATING: II AIRWAY ASSESSMENT Airway Assessment Airway patency, oral function limitations, presence of caps, crowns, dentures, partials, and ability to extend neck assessed. AIRWAY ASSESSMENT: Yes MALLAMPATI SCORE MALLAMPATI SCORE: II PRE-SEDATION ASSESSMENT PRE-SEDATION ASSESSMENT: Yes LUIS MANUEL SONG MD Jan 21, 2020 15:18
--- NOTE | 2020-01-21 15:19 | PDOC ---
BRIEF OPERATIVE NOTE Pre-Op Diagnosis Bilateral sacral insufficiency fractures Post-Op Diagnosis same Procedure Performed CT sacroplasty, bilateral Surgeon Angela Anesthesia Type: Conscious Sedation Findings Bilateral sacroplasty Complications No immediate LUIS MANUEL SONG MD Jan 21, 2020 15:18
--- NOTE | 2020-01-21 15:29 | PDOC ---
Provider Note Provider Note NEUROSURGERY Patient seen and examined at 1215 Consulted for back pain, radiculopathy c/o back pain since a fall 2 weeks ago no significant lower extremity pain, mild posterior thigh pain on the right s/p bilateral sacroplasty Neuro intact Reviewed Lumbar MRI with Dr. Claudio. There is spondylolisthesis and neural foraminal narrowing at L5- S1 Recommend conservative treatments including physical therapy , LESI Justicifation of Admission Dx: Justifications for Admission: Justification of Admission Dx: Yes LAURENT BARTHOLOMEW PROSPECTING DRILLER Jan 21, 2020 15:29
--- NOTE | 2020-01-21 15:46 | RAD ---
Procedure: CT-guided sacral plasty, bilateral Clinical Indication: Adult female with bilateral sacral insufficiency fractures resulting in debilitating back pain. Sedation: Conscious sedation was administered with a total intraprocedural [id number] time of 30 minutes. The patient was monitored by a qualified independent observer throughout the time of sedation. Please refer to the medical record for exact doses of medications utilized to achieve moderate sedation. Antibiotics: Antibiotic was administered intravenously within 1 hour of the procedure start time. Sterility: All elements of maximal sterile barrier technique including the use of a cap, mask, sterile gown, sterile gloves, large sterile sheet, appropriate hand hygiene, and 2% chlorhexidine for cutaneous antisepsis (or acceptable alternative antiseptic per current guidelines) were followed for this procedure. Consent: The procedure was explained in its entirety to the patient or the patients designated automotive leasing sales representative by a member of the treatment team, including a discussion of the risks, benefits and commonly accepted alternatives to the procedure, as well as the expected consequences of no therapy whatsoever. Discussion of the risks included, but was not limited to, those that are most frequent and those that are rare but possibly severe or life-threatening, as well as the possibility of unforeseen complications. Technique and Findings: Following informed consent, the patient was prepped and draped in usual sterile fashion. Preliminary CT scan of the area of interest was performed. 1% lidocaine was used to achieve local anesthesia over the sacrum bilaterally. A small dermatotomy was made in each location. Under periodic CT surveillance, 10-gauge needles were advanced into both sacral alae. Polymethylmethacrylate was then instilled bilaterally. Both needles were then removed and hemostasis was achieved with manual compression. Complications: No immediate Impression: 1. CT-guided bilateral sacral plasty as described. PQRS Compliance Statement: One or more of the following individualized dose reduction techniques were utilized for this examination: 1. Automated exposure control 2. Adjustment of the mA and/or kV according to patient size 3. Use of iterative reconstruction technique
--- NOTE | 2020-01-21 18:09 | PN ---
DATE: 01/21/2020 SUBJECTIVE: The patient is resting, slightly propped up in bed, in no apparent respiratory distress. She continued to complain of pain with movement. She was seen by Dr. German and an MRI of her lumbar spine was ordered, which showed that she has old appearing compression fracture involving L2 vertebral body. No acute compression fracture of the lumbar vertebrae seen. She has acute bilateral fracture of the sacral ala. She has also changes of degenerative disk disease seen throughout the lumbar spine. These findings result in mild central spinal canal stenosis at L1-L2, L4-L5 and L5-S1. She has mild bilateral neural foraminal stenosis seen at L4-L5, moderate to severe right greater than left neural foraminal stenosis seen at L5-S1. I spoke with Dr. Harding and he is planning to go ahead with sacroplasty. I was consulted, Dr. Barnett and Dr. Claudio to see if some of her pain is because of the right sided L5-S1 radiculopathy. PHYSICAL EXAMINATION: GENERAL: When I saw her this morning, she looked well and was clearly in no apparent respiratory distress, pale. No jaundice, cyanosis or thyromegaly. No jugular venous distention. No limb edema. VITAL SIGNS: Her heart rate was 71, blood pressure was 126/75, temperature was 98.4, respiratory rate 20, and oxygen saturation was 94% on room air. The rest of the examination is stable. LABORATORY WORK: As of yesterday showed a white cell count 4500, hemoglobin 9.2, hematocrit 28.7, MCV 84 and platelet count 255,000. Her serum sodium continued to be low at 129, potassium 4.3, chloride 96, bicarbonate 27, anion gap of 6, BUN 13, creatinine 0.9, estimated GFR was 61 mL per minute. Her glucose is 106, calcium was 7.9. Total bilirubin, ALT normal. AST and alkaline phosphatase was extremely high. Total protein was 7.4, albumin was 1.9. ASSESSMENT: This is a 74-year-old female patient who fell sustaining left superior inferior pubic rami, treated nonoperatively with protected mobilization and pain control. However, she was doing well initially at [facility] and then started having severe pain, mostly on the right side. I was concerned that this might be missed right hip fracture. She apparently was found to have bilateral sacral ala fracture and she has also L5-S1 right-sided neural foraminal stenosis. PLAN: Plan is to go ahead with sacroplasty as recommended by Dr. Harding. I have consulted Dr. Barnett and Dr. Claudio for evaluation and their recommendation. JHONATAN AGUIAR MD DR: GUS/mari JOB#: [id number] / [id number]
[2020-01-21] MEDS ORDERED: IV NORMAL SALINE 500ML BAG 500 ML IV ONE (20:30)
[2020-01-21] MEDS: MONTELUKAST SODIUM 10 MG TABLET. PO SCH (21:59)
[2020-01-22] MEDS: HYDROcodone/APAP 5/325MG 1 TAB TABLET PO PRN ×3 (01:23→15:55)
[2020-01-22] MEDS: ONDANSETRON ODT 4 MG TAB.RAPDIS. PO SCH ×4 (01:23→15:50)
[2020-01-22 03:22] VITALS: BP 95/51
[2020-01-22 04:35] LABS: HEMATOCRIT 26.6 % (36.0-47.0); HEMOGLOBIN 8.6 g/dL (12.0-15.5); RED BLOOD COUNT 3.17 x10^6/uL (3.50-5.40); WHITE BLOOD COUNT 4.1 x10^3/uL (4.0-11.0)
[2020-01-22 05:00] LABS: ALBUMIN 1.7 g/dL (3.4-5.0); ALBUMIN/GLOBULIN RATIO 0.3 (1.0-1.7); CALCIUM 7.9 mg/dL (8.5-10.1); CREATININE 0.9 mg/dL (0.6-1.0); GFR 61.4; POTASSIUM 4.7 mmol/L (3.5-5.1); TOTAL BILIRUBIN 0.3 mg/dL (0.2-1.0); TOTAL PROTEIN 6.9 g/dL (6.4-8.2)
[2020-01-22] MEDS: PANTOPRAZOLE 40 MG TABLET.DR. PO SCH (05:38)
[2020-01-22 07:00] VITALS: BP 137/69
[2020-01-22] MEDS: ALBUTEROL SULFATE 2.5 MG/3 ML NEBU. NEB SCH ×4 (07:20→19:24)
[2020-01-22] MEDS: oxyCODONE ER 10 MG TAB.ER.12H PO SCH ×2 (08:41→21:06)
[2020-01-22] MEDS: PSYLLIUM HUSK (SUGAR FREE) 1 PKT PACKET PO SCH (08:41)
[2020-01-22] MEDS: FERROUS SULFATE 325 MG TABLET. PO SCH ×2 (08:41→15:54)
[2020-01-22] MEDS: POLYETHYLENE GLYCOL 3350 17 GM PACKET. PO SCH (08:41)
[2020-01-22] MEDS: MULTIVITAMIN with MINERAL TABLET. PO SCH (08:41)
--- NOTE | 2020-01-22 09:27 | PN ---
DATE: 01/22/2020 SUBJECTIVE: The patient is resting slightly propped up in bed, in no apparent distress. She denied any complaint. She had had her sacroplasty done yesterday successfully. She was seen in consultation by Dr. Barnett and Dr. Claudio. She is not a candidate for any surgical intervention. PHYSICAL EXAMINATION: GENERAL: When I examined her, she looked pale, cachectic. No jaundice, cyanosis or thyromegaly. No jugular venous distention. No lower limb edema. VITAL SIGNS: Her heart rate was 95, blood pressure was 137/69, temperature was 98.7, respiratory rate 20, and oxygen saturation was 95% on room air. The rest of clinic exam is stable. LABORATORY DATA: Her lab work this morning showed that her COVID-19 by PCR was negative. Her white cell count was 4100, hemoglobin 8.6, hematocrit 26.6, MCV of 84 and platelet count 201,000. Her prothrombin time, INR and APTT are normal. Her serum sodium was 128, potassium 4.7, chloride 97, bicarbonate 25, anion gap of 6, BUN 18, creatinine 0.9, estimated GFR was 61 mL per minute, her glucose was 89, calcium was 7.9, total bilirubin and ALT normal, AST and alkaline phosphatase elevated, total protein was 6.9, albumin was 1.7. ASSESSMENT: 1. Fall with left superior inferior pubic rami fracture, treated nonoperatively with protected mobilization and pain control. 2. She developed severe right hip pain and was evaluated. The MRI showed old L2 fracture; however, she has bilateral sacral ala fracture for which she underwent sacroplasty successfully. 3. She has multiple other medical problems including: A. Chronic obstructive pulmonary disease. B. Chronic constipation. C. Chronic hyponatremia. D. Normochromic normocytic anemia. PLAN: My plan is to consult Physical and Occupational Therapy, continue with pain management and continue with iron supplementation and her bronchodilator. I spoke with the nursing staff to see if she is deemed ready to be discharged. We will attempt to discharge her back to [facility]. JHONATAN AGUIAR MD DR: GUS/mari JOB#: [id number] / [id number]
[2020-01-22 11:00] VITALS: BP 97/58
[2020-01-22] MEDS ORDERED: DICLOFENAC SODIUM 1% TOPICAL GEL 100GM TUBE. TP PRN (11:15)
--- NOTE | 2020-01-22 11:27 | PDOC ---
PROGRESS NOTES Subjective Subjective She feels better with her buttock area pain but admits muscle cramps in her hands. Objective Objective Vital Signs Date Time Temp Pulse Resp B/P (MAP) Pulse Ox O2 Delivery O2 Flow Rate FiO2 01/22/20 11:19 97 Room Air 01/22/20 07:00 98.7 95 20 137/69 (91) 98.7 01/21/20 15:20 2.0 Intake and Output 01/22/20 07:00 Intake Total 850 ml Balance 850 ml Intake Oral 850 ml # Voids 3 Physical Exam Physical Exam She is alert,sitting up in bedside chair and in no acute distress and she is walking to the bathroom. Plan Plan of Care To get her up as tolerated and to group home care unit or home with home health follow up when medically stable. Comment Review of Relevant I have reviewed the following items ariana (where applicable) has been applied. Labs Laboratory Tests Test 01/20/20 14:14 01/21/20 11:50 01/21/20 13:45 01/22/20 03:35 White Blood Count 4.5 x10^3/uL (4.0-11.0) 4.1 x10^3/uL (4.0-11.0) Red Blood Count 3.43 x10^6/uL (3.50-5.40) 3.17 x10^6/uL (3.50-5.40) Hemoglobin 9.2 g/dL (12.0-15.5) 8.6 g/dL (12.0-15.5) Hematocrit 28.7 % (36.0-47.0) 26.6 % (36.0-47.0) Mean Corpuscular Volume 84 fL (79-100) 84 fL (79-100) Mean Corpuscular Hemoglobin 27 pg (25-35) 27 pg (25-35) Mean Corpuscular Hemoglobin Concent 32 g/dL (31-37) 32 g/dL (31-37) Red Cell Distribution Width 23.5 % (11.5-14.5) 24.0 % (11.5-14.5) Platelet Count 255 x10^3/uL (140-400) 201 x10^3/uL (140-400) Neutrophils (%) (Auto) 71 % (31-73) Lymphocytes (%) (Auto) 11 % (24-48) Monocytes (%) (Auto) 15 % (0-9) Eosinophils (%) (Auto) 1 % (0-3) Basophils (%) (Auto) 1 % (0-3) Neutrophils # (Auto) 3.2 x10^3/uL (1.8-7.7) Lymphocytes # (Auto) 0.5 x10^3/uL (1.0-4.8) Monocytes # (Auto) 0.7 x10^3/uL (0.0-1.1) Eosinophils # (Auto) 0.1 x10^3/uL (0.0-0.7) Basophils # (Auto) 0.1 x10^3/uL (0.0-0.2) Platelet Estimate Adequate (ADEQUATE) Hypochromasia Slight Anisocytosis Mod Microcytosis Slight Sodium Level 129 mmol/L (136-145) 128 mmol/L (136-145) Potassium Level 4.3 mmol/L (3.5-5.1) 4.7 mmol/L (3.5-5.1) Chloride Level 96 mmol/L (98-107) 97 mmol/L (98-107) Carbon Dioxide Level 27 mmol/L (21-32) 25 mmol/L (21-32) Anion Gap 6 (6-14) 6 (6-14) Blood Urea Nitrogen 13 mg/dL (7-20) 18 mg/dL (7-20) Creatinine 0.9 mg/dL (0.6-1.0) 0.9 mg/dL (0.6-1.0) Estimated GFR (Cockcroft-Gault) 61.4 61.4 BUN/Creatinine Ratio 14 (6-20) 20 (6-20) Glucose Level 106 mg/dL (70-99) 89 mg/dL (70-99) Lactic Acid Level 0.8 mmol/L (0.4-2.0) Calcium Level 7.9 mg/dL (8.5-10.1) 7.9 mg/dL (8.5-10.1) Total Bilirubin 0.4 mg/dL (0.2-1.0) 0.3 mg/dL (0.2-1.0) Aspartate Amino Transf (AST/SGOT) 67 U/L (15-37) 54 U/L (15-37) Alanine Aminotransferase (ALT/SGPT) 39 U/L (14-59) 31 U/L (14-59) Alkaline Phosphatase 620 U/L (46-116) 540 U/L (46-116) Total Protein 7.4 g/dL (6.4-8.2) 6.9 g/dL (6.4-8.2) Albumin 1.9 g/dL (3.4-5.0) 1.7 g/dL (3.4-5.0) Albumin/Globulin Ratio 0.3 (1.0-1.7) 0.3 (1.0-1.7) Prothrombin Time 13.5 SEC (11.7-14.0) Prothromb Time International Ratio 1.1 (0.8-1.1) Activated Partial Thromboplast Time 34 SEC (24-38) Coronavirus (COVID-19)(PCR) Negative (NEGATIVE) Laboratory Tests Test 01/21/20 11:50 01/21/20 13:45 01/22/20 03:35 Prothrombin Time 13.5 SEC (11.7-14.0) Prothromb Time International Ratio 1.1 (0.8-1.1) Activated Partial Thromboplast Time 34 SEC (24-38) Coronavirus (COVID-19)(PCR) Negative (NEGATIVE) White Blood Count 4.1 x10^3/uL (4.0-11.0) Red Blood Count 3.17 x10^6/uL (3.50-5.40) Hemoglobin 8.6 g/dL (12.0-15.5) Hematocrit 26.6 % (36.0-47.0) Mean Corpuscular Volume 84 fL (79-100) Mean Corpuscular Hemoglobin 27 pg (25-35) Mean Corpuscular Hemoglobin Concent 32 g/dL (31-37) Red Cell Distribution Width 24.0 % (11.5-14.5) Platelet Count 201 x10^3/uL (140-400) Sodium Level 128 mmol/L (136-145) Potassium Level 4.7 mmol/L (3.5-5.1) Chloride Level 97 mmol/L (98-107) Carbon Dioxide Level 25 mmol/L (21-32) Anion Gap 6 (6-14) Blood Urea Nitrogen 18 mg/dL (7-20) Creatinine 0.9 mg/dL (0.6-1.0) Estimated GFR (Cockcroft-Gault) 61.4 BUN/Creatinine Ratio 20 (6-20) Glucose Level 89 mg/dL (70-99) Calcium Level 7.9 mg/dL (8.5-10.1) Total Bilirubin 0.3 mg/dL (0.2-1.0) Aspartate Amino Transf (AST/SGOT) 54 U/L (15-37) Alanine Aminotransferase (ALT/SGPT) 31 U/L (14-59) Alkaline Phosphatase 540 U/L (46-116) Total Protein 6.9 g/dL (6.4-8.2) Albumin 1.7 g/dL (3.4-5.0) Albumin/Globulin Ratio 0.3 (1.0-1.7) Medications Current Medications Acetaminophen (Tylenol) 650 mg PRN Q4HRS PRN PO PAIN; Start 01/20/20 at 18:45 Bisacodyl (Dulcolax Tab) 5 mg PRN DAILY PRN PO CONSTIPATION; Start 01/20/20 at 18:45 Docusate Sodium (Colace) 100 mg PRN Q12HRS PRN PO HARD STOOLS; Start 01/20/20 at 18:45 Ferrous Sulfate (Feosol) 325 mg BIDWMEALS PO Last administered on 01/22/20at 08:41; Start 01/20/20 at 19:00 Acetaminophen/ Hydrocodone Bitart (Lortab 5/325) 1 tab PRN Q4HRS PRN PO PAIN Last administered on 01/22/20at 10:12; Start 01/20/20 at 18:45 Montelukast Sodium (Singulair) 10 mg HS PO Last administered on 01/21/20at 21:59; Start 01/20/20 at 21:00 Pantoprazole Sodium (Protonix) 40 mg DAILYAC PO Last administered on 01/22/20at 05:38; Start 01/21/20 at 07:30 Polyethylene Glycol (miraLAX PACKET) 17 gm DAILY PO Last administered on 01/22/20at 08:41; Start 01/21/20 at 09:00 Non-Formulary Medication (Albuterol Sulfate (Albuterol Sulfate Conc Neb Soln)) 1 vial Q4HRS NEB ; Start 01/20/20 at 20:00; Status UNV Multivitamins (Thera M Plus) 1 tab DAILY PO Last administered on 01/22/20at 08:41; Start 01/21/20 at 09:00 Ondansetron HCl (Zofran Odt) 4 mg Q6HRS PO Last administered on 01/22/20at 01:23; Start 01/20/20 at 19:00 Oxycodone HCl (OxyCONTIN) 10 mg Q12HR PO Last administered on 01/22/20at 08:41; Start 01/20/20 at 21:00 Psyllium Hydrophilic Mucilloid (Metamucil Fiber Packet) 1 pkt DAILY PO Last administered on 01/22/20at 08:41; Start 01/21/20 at 09:00 Albuterol Sulfate (Ventolin Neb Soln) 2.5 mg RTQID NEB Last administered on 01/22/20at 11:19; Start 01/20/20 at 20:00 Albuterol Sulfate (Ventolin Neb Soln) 2.5 mg PRN Q4HRS PRN NEB SHORTNESS OF BREATH; Start 01/20/20 at 19:30 Lidocaine HCl (Lidocaine 1% 20ml Vial) 20 ml STK-MED ONCE .ROUTE ; Start 01/21/20 at 14:00; Stop 01/21/20 at 14:00; Status DC Midazolam HCl (Versed) 2 mg STK-MED ONCE .ROUTE ; Start 01/21/20 at 14:15; Stop 01/21/20 at 14:15; Status DC Fentanyl Citrate (Fentanyl 2ml Vial) 100 mcg STK-MED ONCE .ROUTE ; Start 01/21/20 at 14:15; Stop 01/21/20 at 14:15; Status DC Midazolam HCl (Versed) 2 mg 1X ONCE IV Last administered on 01/21/20at 14:30; Start 01/21/20 at 14:30; Stop 01/21/20 at 14:31; Status DC Fentanyl Citrate (Fentanyl 2ml Vial) 100 mcg 1X ONCE IV Last administered on 01/21/20at 14:30; Start 01/21/20 at 14:30; Stop 01/21/20 at 14:31; Status DC Lidocaine HCl (Lidocaine 1% 20ml Vial) 20 ml 1X ONCE INJ Last administered on 01/21/20at 14:30; Start 01/21/20 at 14:30; Stop 01/21/20 at 14:31; Status DC Cefazolin Sodium (Ancef) 1 gm STK-MED ONCE IVP ; Start 01/21/20 at 14:54; Stop 01/21/20 at 14:54; Status DC Cefazolin Sodium (Ancef) 1 gm 1X ONCE IVP Last administered on 01/21/20at 15:15; Start 01/21/20 at 15:15; Stop 01/21/20 at 15:16; Status DC Sodium Chloride 500 ml @ 500 mls/hr 1X ONCE IV Last administered on 01/21/20at 20:47; Start 01/21/20 at 20:30; Stop 01/21/20 at 21:29; Status DC Diclofenac Sodium (Voltaren) 1 mary PRN BID PRN TP JOINT PAIN; Start 01/22/20 at 11:15 Active Scripts Active Reported Zofran (Ondansetron Hcl) 4 Mg Tablet 1 Tab PO Q6HRS Montelukast Sodium Tablet (Montelukast Sodium) 10 Mg Tablet 10 Mg PO HS Protonix (Pantoprazole Sodium) 40 Mg Tablet.dr 40 Mg PO DAILYAC Oxycontin (Oxycodone HCl) 20 Mg Tab.er.12h 10 Mg PO BID MDD 2 Tablet(s) 30 Days One-Daily Multi-Vitamin (Multivitamin) 1 Each Tablet 1 Tab PO DAILY 30 Days Miralax (Polyethylene Glycol 3350) 17 Gm Powd.pack 1 Packet PO DAILY 2 Days dissolve in water Metamucil (Psyllium Husk) 0.52 Gm Capsule 1 Cap PO DAILY 30 Days Hydrocodone-Acetamin 5-325 mg (Hydrocodone/Acetaminophen) 1 Each Tablet 1 Each PO PRN Q4HRS PRN Ferrous Sulfate 325 Mg Tablet 1 Tab PO BID Dulcolax (Bisacodyl) 5 Mg Tablet. 5 Mg PO PRN DAILY PRN Colace (Docusate Sodium) 100 Mg Capsule 1 Cap PO PRN Q12HRS PRN 30 Days Albuterol Sulfate Conc Neb Soln (Albuterol Sulfate) 2.5 Mg/0.5 Ml Vial.neb 1 Vial NEB Q4HRS Acetaminophen 650 Mg/20.3 Ml Solution 650 Mg PO PRN Q4HRS PRN Vitals/I & O Vital Sign - Last 24 Hours 01/21/20 01/21/20 01/21/20 01/21/20 11:55 12:18 14:30 14:50 Pulse 91 Resp 14 19 Pulse Ox 99 100 O2 Delivery Room Air Room Air Nasal Cannula O2 Flow Rate 2.0 01/21/20 01/21/20 01/21/20 01/21/20 14:55 15:00 15:05 15:10 Pulse 88 89 90 90 Resp 14 15 15 16 Pulse Ox 97 94 93 93 O2 Delivery Nasal Cannula Nasal Cannula Nasal Cannula Nasal Cannula O2 Flow Rate 2.0 2.0 3.0 4.0 01/21/20 01/21/20 01/21/20 01/21/20 15:15 15:20 15:20 15:30 Pulse 88 90 90 83 Resp 14 14 14 B/P (MAP) 112/54 (73) Pulse Ox 99 100 100 96 O2 Delivery Nasal Cannula Nasal Cannula Nasal Cannula O2 Flow Rate 4.0 2.0 2.0 01/21/20 01/21/20 01/21/20 01/21/20 15:42 15:42 15:45 16:00 Temp 98.4 98.4 Pulse 82 94 82 Resp 20 B/P (MAP) 112/54 (73) 116/51 (72) 93/45 (61) Pulse Ox 99 96 96 O2 Delivery Room Air Room Air 01/21/20 01/21/20 01/21/20 01/21/20 16:15 16:45 17:15 18:03 Pulse 82 75 84 B/P (MAP) 93/50 (64) 100/64 (76) 129/57 (81) Pulse Ox 96 92 97 O2 Delivery Room Air 01/21/20 01/21/20 01/21/20 01/21/20 18:15 19:00 19:03 20:00 Temp 98.2 98.2 Pulse 91 97 Resp 20 14 B/P (MAP) 130/105 (113) 91/52 (65) Pulse Ox 97 94 O2 Delivery Room Air Room Air Room Air 01/21/20 01/21/20 01/21/20 01/22/20 20:19 22:00 23:00 01:23 Temp 97.5 97.5 Pulse 97 Resp 16 20 16 B/P (MAP) 108/42 (64) Pulse Ox 3 94 O2 Delivery Room Air Room Air Room Air Room Air 01/22/20 01/22/20 01/22/20 01/22/20 02:23 02:23 03:22 07:00 Temp 97.7 98.7 97.7 98.7 Pulse 71 95 Resp 14 14 21 20 B/P (MAP) 95/51 (66) 137/69 (91) Pulse Ox 93 93 O2 Delivery Room Air Room Air Room Air Room Air 01/22/20 01/22/20 01/22/20 01/22/20 07:20 07:48 08:41 10:12 Pulse Ox 95 95 95 O2 Delivery Room Air Room Air Room Air Room Air 01/22/20 01/22/20 11:15 11:19 Pulse Ox 95 97 O2 Delivery Room Air Room Air Intake and Output 01/21/20 01/21/20 01/22/20 15:00 23:00 07:00 Intake Total 150 ml 500 ml 200 ml Balance 150 ml 500 ml 200 ml Justicifation of Admission Dx: Justifications for Admission: Justification of Admission Dx: Yes Nutrition Consultation Dietary Evaluation: Recommendations by RD: Dietary education by RD, Increase Calorie Intake, Protein supplementation Comments: ensure enlive tid magic cup bid Expected Outcomes/Goals: to meet >75% est nutr needs Interpretation of weight loss: >1-2% in 1 week Malnutrition Findings: Muscle Mass (Severe): Severe Depletion Weight Status: Underweight VIDHYA RAYMOND MD Jan 22, 2020 11:27
--- NOTE | 2020-01-22 13:34 | PDOC ---
PROGRESS NOTES Subjective Subjective Problems overnight: Feels much better since vertebroplasty procedure, indicates no hip pain on right side, well controlled left groin area Objective Vital Signs Vital Signs Date Time Temp Pulse Resp B/P (MAP) Pulse Ox O2 Delivery O2 Flow Rate FiO2 01/22/20 12:22 97 Room Air 01/22/20 11:00 98.2 94 20 97/58 (71) 98.2 01/21/20 15:20 2.0 Physical Exam Leg lengths equal no pain on right hip movement slight discomfort weightbearing through an extended left extremity normal motion stability bilateral hips knees ankles and intact distal pulses sensation reflexes skin both lower extremities throughout Labs Laboratory Tests Test 01/20/20 14:14 01/21/20 11:50 01/21/20 13:45 01/22/20 03:35 White Blood Count 4.5 x10^3/uL (4.0-11.0) 4.1 x10^3/uL (4.0-11.0) Red Blood Count 3.43 x10^6/uL (3.50-5.40) 3.17 x10^6/uL (3.50-5.40) Hemoglobin 9.2 g/dL (12.0-15.5) 8.6 g/dL (12.0-15.5) Hematocrit 28.7 % (36.0-47.0) 26.6 % (36.0-47.0) Mean Corpuscular Volume 84 fL (79-100) 84 fL (79-100) Mean Corpuscular Hemoglobin 27 pg (25-35) 27 pg (25-35) Mean Corpuscular Hemoglobin Concent 32 g/dL (31-37) 32 g/dL (31-37) Red Cell Distribution Width 23.5 % (11.5-14.5) 24.0 % (11.5-14.5) Platelet Count 255 x10^3/uL (140-400) 201 x10^3/uL (140-400) Neutrophils (%) (Auto) 71 % (31-73) Lymphocytes (%) (Auto) 11 % (24-48) Monocytes (%) (Auto) 15 % (0-9) Eosinophils (%) (Auto) 1 % (0-3) Basophils (%) (Auto) 1 % (0-3) Neutrophils # (Auto) 3.2 x10^3/uL (1.8-7.7) Lymphocytes # (Auto) 0.5 x10^3/uL (1.0-4.8) Monocytes # (Auto) 0.7 x10^3/uL (0.0-1.1) Eosinophils # (Auto) 0.1 x10^3/uL (0.0-0.7) Basophils # (Auto) 0.1 x10^3/uL (0.0-0.2) Platelet Estimate Adequate (ADEQUATE) Hypochromasia Slight Anisocytosis Mod Microcytosis Slight Sodium Level 129 mmol/L (136-145) 128 mmol/L (136-145) Potassium Level 4.3 mmol/L (3.5-5.1) 4.7 mmol/L (3.5-5.1) Chloride Level 96 mmol/L (98-107) 97 mmol/L (98-107) Carbon Dioxide Level 27 mmol/L (21-32) 25 mmol/L (21-32) Anion Gap 6 (6-14) 6 (6-14) Blood Urea Nitrogen 13 mg/dL (7-20) 18 mg/dL (7-20) Creatinine 0.9 mg/dL (0.6-1.0) 0.9 mg/dL (0.6-1.0) Estimated GFR (Cockcroft-Gault) 61.4 61.4 BUN/Creatinine Ratio 14 (6-20) 20 (6-20) Glucose Level 106 mg/dL (70-99) 89 mg/dL (70-99) Lactic Acid Level 0.8 mmol/L (0.4-2.0) Calcium Level 7.9 mg/dL (8.5-10.1) 7.9 mg/dL (8.5-10.1) Total Bilirubin 0.4 mg/dL (0.2-1.0) 0.3 mg/dL (0.2-1.0) Aspartate Amino Transf (AST/SGOT) 67 U/L (15-37) 54 U/L (15-37) Alanine Aminotransferase (ALT/SGPT) 39 U/L (14-59) 31 U/L (14-59) Alkaline Phosphatase 620 U/L (46-116) 540 U/L (46-116) Total Protein 7.4 g/dL (6.4-8.2) 6.9 g/dL (6.4-8.2) Albumin 1.9 g/dL (3.4-5.0) 1.7 g/dL (3.4-5.0) Albumin/Globulin Ratio 0.3 (1.0-1.7) 0.3 (1.0-1.7) Prothrombin Time 13.5 SEC (11.7-14.0) Prothromb Time International Ratio 1.1 (0.8-1.1) Activated Partial Thromboplast Time 34 SEC (24-38) Coronavirus (COVID-19)(PCR) Negative (NEGATIVE) Laboratory Tests Test 01/21/20 13:45 01/22/20 03:35 Coronavirus (COVID-19)(PCR) Negative (NEGATIVE) White Blood Count 4.1 x10^3/uL (4.0-11.0) Red Blood Count 3.17 x10^6/uL (3.50-5.40) Hemoglobin 8.6 g/dL (12.0-15.5) Hematocrit 26.6 % (36.0-47.0) Mean Corpuscular Volume 84 fL (79-100) Mean Corpuscular Hemoglobin 27 pg (25-35) Mean Corpuscular Hemoglobin Concent 32 g/dL (31-37) Red Cell Distribution Width 24.0 % (11.5-14.5) Platelet Count 201 x10^3/uL (140-400) Sodium Level 128 mmol/L (136-145) Potassium Level 4.7 mmol/L (3.5-5.1) Chloride Level 97 mmol/L (98-107) Carbon Dioxide Level 25 mmol/L (21-32) Anion Gap 6 (6-14) Blood Urea Nitrogen 18 mg/dL (7-20) Creatinine 0.9 mg/dL (0.6-1.0) Estimated GFR (Cockcroft-Gault) 61.4 BUN/Creatinine Ratio 20 (6-20) Glucose Level 89 mg/dL (70-99) Calcium Level 7.9 mg/dL (8.5-10.1) Total Bilirubin 0.3 mg/dL (0.2-1.0) Aspartate Amino Transf (AST/SGOT) 54 U/L (15-37) Alanine Aminotransferase (ALT/SGPT) 31 U/L (14-59) Alkaline Phosphatase 540 U/L (46-116) Total Protein 6.9 g/dL (6.4-8.2) Albumin 1.7 g/dL (3.4-5.0) Albumin/Globulin Ratio 0.3 (1.0-1.7) Assessment Assessment Nonoperative treatment left superior and inferior pubic rami fractures nearly 3 weeks out Plan Plan of Care It appears that the right hip area pain was coming from her back and has been relieved very significantly by the vertebroplasty procedure Continue supportive care protected weightbearing pain control for the left-sided pubic rami fractures, no other orthopedic intervention indicated Justicifation of Admission Dx: Justifications for Admission: Justification of Admission Dx: N/A GERRY PARISH MD Jan 22, 2020 13:34
[2020-01-22 15:00] VITALS: BP 101/51
[2020-01-22 19:00] VITALS: BP 112/61
[2020-01-22] MEDS: MONTELUKAST SODIUM 10 MG TABLET. PO SCH (21:05)
[2020-01-22 23:00] VITALS: BP 109/58
[2020-01-23 03:00] VITALS: BP 107/64
[2020-01-23 04:29] LABS: HEMOGLOBIN 8.6 g/dL (12.0-15.5); RED BLOOD COUNT 3.18 x10^6/uL (3.50-5.40); RED CELL DISTRIBUTION WIDTH 24.3 % (11.5-14.5); WHITE BLOOD COUNT 3.9 x10^3/uL (4.0-11.0)
[2020-01-23 04:43] LABS: CALCIUM 8.1 mg/dL (8.5-10.1); GFR 54.3; POTASSIUM 4.6 mmol/L (3.5-5.1)
[2020-01-23] MEDS: ONDANSETRON ODT 4 MG TAB.RAPDIS. PO SCH ×5 (06:19→23:18)
[2020-01-23 07:00] VITALS: BP 96/50
[2020-01-23] MEDS: ALBUTEROL SULFATE 2.5 MG/3 ML NEBU. NEB SCH ×4 (07:01→19:08)
[2020-01-23] MEDS: POLYETHYLENE GLYCOL 3350 17 GM PACKET. PO SCH (08:19)
[2020-01-23] MEDS: FERROUS SULFATE 325 MG TABLET. PO SCH ×2 (08:19→16:19)
[2020-01-23] MEDS: PSYLLIUM HUSK (SUGAR FREE) 1 PKT PACKET PO SCH (08:19)
[2020-01-23] MEDS: oxyCODONE ER 10 MG TAB.ER.12H PO SCH ×2 (08:20→20:11)
[2020-01-23] MEDS: MULTIVITAMIN with MINERAL TABLET. PO SCH (08:20)
[2020-01-23] MEDS: PANTOPRAZOLE 40 MG TABLET.DR. PO SCH (08:20)
[2020-01-23] MEDS: HYDROcodone/APAP 5/325MG 1 TAB TABLET PO PRN ×3 (10:22→23:17)
[2020-01-23 11:00] VITALS: BP 110/52
--- NOTE | 2020-01-23 11:31 | PDOC ---
PROGRESS NOTES Subjective Subjective She admits some increased buttock area pain this AM. Objective Objective Vital Signs Date Time Temp Pulse Resp B/P (MAP) Pulse Ox O2 Delivery O2 Flow Rate FiO2 01/23/20 10:22 Room Air 01/23/20 07:01 96 01/23/20 07:00 98.2 96 18 96/50 (65) 98.2 01/21/20 15:20 2.0 Intake and Output 01/23/20 07:00 Intake Total 795 ml Output Total 450 ml Balance 345 ml Intake Oral 795 ml Output Urine Total 450 ml Physical Exam Physical Exam She is sitting in bedside chair with ice packs but she is getting up with roller walker. Plan [facility] when medically stable. Comment Review of Relevant I have reviewed the following items ariana (where applicable) has been applied. Labs Laboratory Tests Test 01/21/20 11:50 01/21/20 13:45 01/22/20 03:35 01/23/20 02:53 Prothrombin Time 13.5 SEC (11.7-14.0) Prothromb Time International Ratio 1.1 (0.8-1.1) Activated Partial Thromboplast Time 34 SEC (24-38) Coronavirus (COVID-19)(PCR) Negative (NEGATIVE) White Blood Count 4.1 x10^3/uL (4.0-11.0) 3.9 x10^3/uL (4.0-11.0) Red Blood Count 3.17 x10^6/uL (3.50-5.40) 3.18 x10^6/uL (3.50-5.40) Hemoglobin 8.6 g/dL (12.0-15.5) 8.6 g/dL (12.0-15.5) Hematocrit 26.6 % (36.0-47.0) 27.0 % (36.0-47.0) Mean Corpuscular Volume 84 fL (79-100) 85 fL (79-100) Mean Corpuscular Hemoglobin 27 pg (25-35) 27 pg (25-35) Mean Corpuscular Hemoglobin Concent 32 g/dL (31-37) 32 g/dL (31-37) Red Cell Distribution Width 24.0 % (11.5-14.5) 24.3 % (11.5-14.5) Platelet Count 201 x10^3/uL (140-400) 177 x10^3/uL (140-400) Sodium Level 128 mmol/L (136-145) Potassium Level 4.7 mmol/L (3.5-5.1) Chloride Level 97 mmol/L (98-107) Carbon Dioxide Level 25 mmol/L (21-32) Anion Gap 6 (6-14) Blood Urea Nitrogen 18 mg/dL (7-20) Creatinine 0.9 mg/dL (0.6-1.0) Estimated GFR (Cockcroft-Gault) 61.4 BUN/Creatinine Ratio 20 (6-20) Glucose Level 89 mg/dL (70-99) Calcium Level 7.9 mg/dL (8.5-10.1) Total Bilirubin 0.3 mg/dL (0.2-1.0) Aspartate Amino Transf (AST/SGOT) 54 U/L (15-37) Alanine Aminotransferase (ALT/SGPT) 31 U/L (14-59) Alkaline Phosphatase 540 U/L (46-116) Total Protein 6.9 g/dL (6.4-8.2) Albumin 1.7 g/dL (3.4-5.0) Albumin/Globulin Ratio 0.3 (1.0-1.7) Test 01/23/20 02:56 Sodium Level 128 mmol/L (136-145) Potassium Level 4.6 mmol/L (3.5-5.1) Chloride Level 96 mmol/L (98-107) Carbon Dioxide Level 26 mmol/L (21-32) Anion Gap 6 (6-14) Blood Urea Nitrogen 18 mg/dL (7-20) Creatinine 1.0 mg/dL (0.6-1.0) Estimated GFR (Cockcroft-Gault) 54.3 Glucose Level 125 mg/dL (70-99) Calcium Level 8.1 mg/dL (8.5-10.1) Laboratory Tests Test 01/23/20 02:53 01/23/20 02:56 White Blood Count 3.9 x10^3/uL (4.0-11.0) Red Blood Count 3.18 x10^6/uL (3.50-5.40) Hemoglobin 8.6 g/dL (12.0-15.5) Hematocrit 27.0 % (36.0-47.0) Mean Corpuscular Volume 85 fL (79-100) Mean Corpuscular Hemoglobin 27 pg (25-35) Mean Corpuscular Hemoglobin Concent 32 g/dL (31-37) Red Cell Distribution Width 24.3 % (11.5-14.5) Platelet Count 177 x10^3/uL (140-400) Sodium Level 128 mmol/L (136-145) Potassium Level 4.6 mmol/L (3.5-5.1) Chloride Level 96 mmol/L (98-107) Carbon Dioxide Level 26 mmol/L (21-32) Anion Gap 6 (6-14) Blood Urea Nitrogen 18 mg/dL (7-20) Creatinine 1.0 mg/dL (0.6-1.0) Estimated GFR (Cockcroft-Gault) 54.3 Glucose Level 125 mg/dL (70-99) Calcium Level 8.1 mg/dL (8.5-10.1) Medications Current Medications Acetaminophen (Tylenol) 650 mg PRN Q4HRS PRN PO FEVER; Start 01/20/20 at 18:45 Bisacodyl (Dulcolax Tab) 5 mg PRN DAILY PRN PO CONSTIPATION; Start 01/20/20 at 18:45 Docusate Sodium (Colace) 100 mg PRN Q12HRS PRN PO HARD STOOLS; Start 01/20/20 at 18:45 Ferrous Sulfate (Feosol) 325 mg BIDWMEALS PO Last administered on 01/23/20at 08:19; Start 01/20/20 at 19:00 Acetaminophen/ Hydrocodone Bitart (Lortab 5/325) 1 tab PRN Q4HRS PRN PO PAIN Last administered on 01/23/20at 10:22; Start 01/20/20 at 18:45 Montelukast Sodium (Singulair) 10 mg HS PO Last administered on 01/22/20at 21:05; Start 01/20/20 at 21:00 Pantoprazole Sodium (Protonix) 40 mg DAILYAC PO Last administered on 01/23/20at 08:20; Start 01/21/20 at 07:30 Polyethylene Glycol (miraLAX PACKET) 17 gm DAILY PO Last administered on 01/22/20at 08:41; Start 01/21/20 at 09:00 Non-Formulary Medication (Albuterol Sulfate (Albuterol Sulfate Conc Neb Soln)) 1 vial Q4HRS NEB ; Start 01/20/20 at 20:00; Status UNV Multivitamins (Thera M Plus) 1 tab DAILY PO Last administered on 01/23/20at 08:20; Start 01/21/20 at 09:00 Ondansetron HCl (Zofran Odt) 4 mg Q6HRS PO Last administered on 01/23/20at 06:19; Start 01/20/20 at 19:00 Oxycodone HCl (OxyCONTIN) 10 mg Q12HR PO Last administered on 01/23/20at 08:20; Start 01/20/20 at 21:00 Psyllium Hydrophilic Mucilloid (Metamucil Fiber Packet) 1 pkt DAILY PO Last administered on 01/22/20at 08:41; Start 01/21/20 at 09:00 Albuterol Sulfate (Ventolin Neb Soln) 2.5 mg RTQID NEB Last administered on 01/23/20at 07:01; Start 01/20/20 at 20:00 Albuterol Sulfate (Ventolin Neb Soln) 2.5 mg PRN Q4HRS PRN NEB SHORTNESS OF BREATH; Start 01/20/20 at 19:30 Lidocaine HCl (Lidocaine 1% 20ml Vial) 20 ml STK-MED ONCE .ROUTE ; Start 01/21/20 at 14:00; Stop 01/21/20 at 14:00; Status DC Midazolam HCl (Versed) 2 mg STK-MED ONCE .ROUTE ; Start 01/21/20 at 14:15; Stop 01/21/20 at 14:15; Status DC Fentanyl Citrate (Fentanyl 2ml Vial) 100 mcg STK-MED ONCE .ROUTE ; Start 01/21/20 at 14:15; Stop 01/21/20 at 14:15; Status DC Midazolam HCl (Versed) 2 mg 1X ONCE IV Last administered on 01/21/20at 14:30; Start 01/21/20 at 14:30; Stop 01/21/20 at 14:31; Status DC Fentanyl Citrate (Fentanyl 2ml Vial) 100 mcg 1X ONCE IV Last administered on 01/21/20at 14:30; Start 01/21/20 at 14:30; Stop 01/21/20 at 14:31; Status DC Lidocaine HCl (Lidocaine 1% 20ml Vial) 20 ml 1X ONCE INJ Last administered on 01/21/20at 14:30; Start 01/21/20 at 14:30; Stop 01/21/20 at 14:31; Status DC Cefazolin Sodium (Ancef) 1 gm STK-MED ONCE IVP ; Start 01/21/20 at 14:54; Stop 01/21/20 at 14:54; Status DC Cefazolin Sodium (Ancef) 1 gm 1X ONCE IVP Last administered on 01/21/20at 15:15; Start 01/21/20 at 15:15; Stop 01/21/20 at 15:16; Status DC Sodium Chloride 500 ml @ 500 mls/hr 1X ONCE IV Last administered on 01/21/20at 20:47; Start 01/21/20 at 20:30; Stop 01/21/20 at 21:29; Status DC Diclofenac Sodium (Voltaren) 1 mary PRN BID PRN TP JOINT PAIN; Start 01/22/20 at 11:15 Active Scripts Active Reported Zofran (Ondansetron Hcl) 4 Mg Tablet 1 Tab PO Q6HRS Montelukast Sodium Tablet (Montelukast Sodium) 10 Mg Tablet 10 Mg PO HS Protonix (Pantoprazole Sodium) 40 Mg Tablet.dr 40 Mg PO DAILYAC Oxycontin (Oxycodone HCl) 20 Mg Tab.er.12h 10 Mg PO BID MDD 2 Tablet(s) 30 Days One-Daily Multi-Vitamin (Multivitamin) 1 Each Tablet 1 Tab PO DAILY 30 Days Miralax (Polyethylene Glycol 3350) 17 Gm Powd.pack 1 Packet PO DAILY 2 Days dissolve in water Metamucil (Psyllium Husk) 0.52 Gm Capsule 1 Cap PO DAILY 30 Days Hydrocodone-Acetamin 5-325 mg (Hydrocodone/Acetaminophen) 1 Each Tablet 1 Each PO PRN Q4HRS PRN Ferrous Sulfate 325 Mg Tablet 1 Tab PO BID Dulcolax (Bisacodyl) 5 Mg Tablet.dr 5 Mg PO PRN DAILY PRN Colace (Docusate Sodium) 100 Mg Capsule 1 Cap PO PRN Q12HRS PRN 30 Days Albuterol Sulfate Conc Neb Soln (Albuterol Sulfate) 2.5 Mg/0.5 Ml Vial.neb 1 Vial NEB Q4HRS Acetaminophen 650 Mg/20.3 Ml Solution 650 Mg PO PRN Q4HRS PRN Vitals/I & O Vital Sign - Last 24 Hours 01/22/20 01/22/20 01/22/20 01/22/20 12:22 15:00 15:13 15:55 Temp 98.1 98.1 Pulse 94 Resp 20 B/P (MAP) 101/51 (68) Pulse Ox 97 94 95 95 O2 Delivery Room Air Room Air Room Air Room Air 01/22/20 01/22/20 01/22/20 01/22/20 17:02 19:00 19:25 20:20 Temp 98.9 98.9 Pulse 100 Resp 18 B/P (MAP) 112/61 (78) Pulse Ox 95 95 99 O2 Delivery Room Air Room Air Room Air Room Air 01/22/20 01/22/20 01/23/20 01/23/20 21:06 23:00 01:06 03:00 Temp 99.8 98.8 99.8 98.8 Pulse 103 97 Resp 20 18 20 18 B/P (MAP) 109/58 (75) 107/64 (78) Pulse Ox 93 95 O2 Delivery Room Air Room Air Room Air Room Air 01/23/20 01/23/20 01/23/20 01/23/20 07:00 07:01 08:20 08:26 Temp 98.2 98.2 Pulse 96 Resp 18 B/P (MAP) 96/50 (65) Pulse Ox 93 96 O2 Delivery Room Air Room Air Room Air Room Air 01/23/20 10:22 O2 Delivery Room Air Intake and Output 01/22/20 01/22/20 01/23/20 15:00 23:00 07:00 Intake Total 525 ml 150 ml 120 ml Output Total 450 ml Balance 525 ml 150 ml -330 ml Justicifation of Admission Dx: Justifications for Admission: Justification of Admission Dx: N/A Nutrition Consultation Dietary Evaluation: Recommendations by RD: Dietary education by RD, Increase Calorie Intake, Protein supplementation Comments: ensure enlive tid magic cup bid Expected Outcomes/Goals: to meet >75% est nutr needs Interpretation of weight loss: >1-2% in 1 week Malnutrition Findings: Muscle Mass (Severe): Severe Depletion Weight Status: Underweight VIDHYA RAYMOND MD 4, 2020 11:31
--- NOTE | 2020-01-23 12:54 | PN ---
DATE: 01/23/2020 SUBJECTIVE: The patient is resting, slightly propped up in bed, eating her breakfast comfortably. She apparently managed to get out of bed yesterday with assistance and managed to walk to the chair or recliner, declined to walk because of pain, although she stated her pain is much better after she had sacroplasty. I prepared all the paperwork for her to be discharged back to [facility] and for some reason that did not happen. PHYSICAL EXAMINATION: GENERAL: In any case, when I saw her this morning, she looked pale, cachectic, but no jaundice or cyanosis. No lymphadenopathy, no thyromegaly. No jugular venous distention. No lower limb edema. VITAL SIGNS: Her heart rate was 97, blood pressure was 107/64, temperature was 98.8, respiratory rate was 18 and oxygen saturation was 96% on room air. The rest of clinical exam is stable. Her intake was 815, no output was recorded. LABORATORY DATA: As of this morning, her white cell count was 3900, hemoglobin 8.6, hematocrit 27, MCV 85 and platelet count of 177,000. Serum sodium continued to be low at 128, potassium 4.6, chloride 96, bicarbonate 26, anion gap of 6, BUN 18, creatinine 1, estimated GFR was 54 mL per minute. Her glucose 125 and calcium was 8.1. ASSESSMENT: 1. Fall with left superior inferior pubic rami fracture, treated nonoperatively with a protected mobilization, and pain control. 2. She developed worsening right hip pain, was evaluated for which she was admitted to [facility], was seen by the orthopedic surgeon and MRI showed old L2 fracture; however, did have bilateral sacral ala fracture for which she underwent sacroplasty successfully. 3. She has multiple other medical problems including: A. Chronic obstructive pulmonary disease. B. Chronic constipation. C. Chronic hyponatremia. D. Normochromic normocytic anemia. E. Severe cachexia and malnutrition. PLAN: Obviously to continue with physical and occupational therapy. Continue with pain management. I have prepared all the paperwork for her to be discharged and if she can be discharged today, she can go back to [facility] to continue the process of rehabilitation there. Otherwise, that has to wait till Saturday. JHONATAN AGUIAR MD DR: GUS/mari JOB#: [id number] / [id number]
[2020-01-23 15:00] VITALS: BP 120/57
[2020-01-23 19:00] VITALS: BP 134/78
[2020-01-23] MEDS: MONTELUKAST SODIUM 10 MG TABLET. PO SCH (20:10)
[2020-01-23 22:46] VITALS: BP 96/59
[2020-01-24 02:57] VITALS: BP_SYST 111; BP_SYST 117; BP_DIAS 50; BP_DIAS 68
[2020-01-24] MEDS: ONDANSETRON ODT 4 MG TAB.RAPDIS. PO SCH ×2 (06:20→11:51)
[2020-01-24] MEDS: PANTOPRAZOLE 40 MG TABLET.DR. PO SCH (06:20)
[2020-01-24 07:00] VITALS: BP 100/55
[2020-01-24] MEDS: ALBUTEROL SULFATE 2.5 MG/3 ML NEBU. NEB SCH ×2 (07:10→10:48)
[2020-01-24] MEDS: MULTIVITAMIN with MINERAL TABLET. PO SCH (08:51)
[2020-01-24] MEDS: PSYLLIUM HUSK (SUGAR FREE) 1 PKT PACKET PO SCH (08:51)
[2020-01-24] MEDS: POLYETHYLENE GLYCOL 3350 17 GM PACKET. PO SCH (08:51)
[2020-01-24] MEDS: FERROUS SULFATE 325 MG TABLET. PO SCH (08:51)
[2020-01-24] MEDS: oxyCODONE ER 10 MG TAB.ER.12H PO SCH (08:51)
--- NOTE | 2020-01-24 09:18 | PN ---
DATE: 01/24/2020 SUBJECTIVE: The patient is resting, slightly propped up in bed, eating her breakfast comfortably, in no apparent distress. She continued to complain of pain in her right lower extremity. She managed to get out of the bed to the recliner, has not yet been able to walk; however, she did say she slept very well overnight and her pain is well controlled at rest. PHYSICAL EXAMINATION: GENERAL: When I examined her, she looked pale, cachectic, but no jaundice, cyanosis or thyromegaly. No jugular venous distention. No limb edema. VITAL SIGNS: Her heart rate was 87, blood pressure was 117/68, temperature was 97.6, respiratory rate 20, and oxygen saturation was 97%. The rest of clinical exam is stable. Her intake was 800, output was 450. LABORATORY DATA: As of yesterday, her serum sodium was 128, potassium 4.6, chloride 96, bicarbonate 26, anion gap of 6, BUN 18, creatinine 1, estimated GFR was 54 mL per minute. Her glucose 125, calcium was 8.1. Her hemoglobin was 8.6, hematocrit 27 with normal white cell count and platelets. ASSESSMENT: 1. Fall with left superior inferior pubic rami fracture treated nonoperatively with protected immobilization, pain control. 2. She developed worsening right hip pain, was evaluated, and for which she was admitted to [facility], seen by orthopedic surgeon and an MRI showed old L2 compression fracture. She did have also bilateral sacral ala fracture for which she underwent sacroplasty successfully. 3. She has multiple other medical problems including: A. Chronic obstructive pulmonary disease. B. Chronic constipation. C. Chronic hyponatremia. D. Normochromic normocytic anemia. E. Severe cachexia and malnutrition. PLAN: 1. To continue with pain management. 2. Continue with physical and occupational therapy. She will be discharged hopefully tomorrow to [facility]. JHONATAN AGUIAR MD DR: GUS/mari JOB#: [id number] / [id number]
--- NOTE | 2020-01-24 09:43 | NUR ---
Dr. Mares notified of [facility] being able to accept pt today. Stated she would put in d/c orders.
--- NOTE | 2020-01-24 09:57 | SNU/HH DC ---
DISCHARGE ORDERS DISCHARGE INFORMATION: DISCHARGE DATE: Jan 24, 2020 FINAL DIAGNOSIS RIGHT HIP PAIN BILATERAL SACRAL INSUUFFICIENCY FRACTURE COPD HYPONATREMIA NORMOCHROMIC NORMOCYTIC ANEMIA CONDITION ON DISCHARGE: Stable CODE STATUS: Code Status: DNR/DNI [facility]: SNF STAY <30 DAYS: Yes POST DISCHARGE ORDERS: ACTIVITY ORDERS: Activity as tolerated, Avoid exertion WEIGHT BEARING STATUS: As tolerated DIET AFTER DISCHARGE: Cardiac TREATMENT/EQUIPMENT ORDERS: Physical Therapy For: Evalulation/Treatment Occupational Therapy For: Evaluation/Treatment DISCHARGE MEDICATIONS: Home Meds Reported Medications Ondansetron Hcl (ZOFRAN) 4 Mg Tablet, 1 TAB PO Q6HRS for nausea, #20 TAB 01/20/20 Montelukast Sodium (MONTELUKAST SODIUM TABLET ) 10 Mg Tablet, 10 MG PO HS for FOR ASTHMA, TAB 0 Refills 01/20/20 Pantoprazole Sodium (PROTONIX ) 40 Mg Tablet.dr, 40 MG PO DAILYAC for GERD, TAB 01/20/20 Oxycodone Hcl (OXYCONTIN) 20 Mg Tab.er.12h, 10 MG PO BID for pain MDD 2 Tablet(s) for 30 Days, #30 TAB 0 Refills 01/20/20 Multivitamin (One-Daily Multi-Vitamin) 1 Each Tablet, 1 TAB PO DAILY for supplement for 30 Days, #30 TAB 0 Refills 01/20/20 Polyethylene Glycol 3350 (MIRALAX) 17 Gm Powd.pack, 1 PACKET PO DAILY for constipation for 2 Days, #2 PACKET 0 Refills dissolve in water 01/20/20 Psyllium Husk (METAMUCIL) 0.52 Gm Capsule, 1 CAP PO DAILY for constipation for 30 Days, #30 CAP 0 Refills 01/20/20 Hydrocodone/Acetaminophen (Hydrocodone-Acetamin 5-325 mg) 1 Each Tablet, 1 EACH PO PRN Q4HRS PRN for PAIN, TAB 01/20/20 Ferrous Sulfate (FERROUS SULFATE) 325 Mg Tablet, 1 TAB PO BID for anemia , #60 TAB 3 Refills 01/20/20 Bisacodyl (DULCOLAX) 5 Mg Tablet.dr, 5 MG PO PRN DAILY PRN for CONSTIPATION, TAB 0 Refills 01/20/20 Docusate Sodium (COLACE) 100 Mg Capsule, 1 CAP PO PRN Q12HRS PRN for CONSTIPATION for 30 Days, CAP 0 Refills 01/20/20 Albuterol Sulfate (ALBUTEROL SULFATE CONC NEB SOLN) 2.5 Mg/0.5 Ml Vial.neb, 1 VIAL NEB Q4HRS for SOB, #60 VIAL 1 Refill 01/20/20 Acetaminophen (Acetaminophen) 650 Mg/20.3 Ml Solution, 650 MG PO PRN Q4HRS PRN for PAIN, MISC 01/20/20 JHONATAN AGUIAR MD Jan 24, 2020 09:57
--- NOTE | 2020-01-24 10:25 | DS ---
DATE OF DISCHARGE: 01/24/2020 HOSPITAL COURSE: The patient is a 74-year-old female patient who was transferred from [facility]. She continued to have severe pain in the right hip and right lower back. She has had an MRI, which showed that she has bilateral sacral insufficiency fracture. She was seen by orthopedic surgeon, who did not see that her right hip showed no evidence of fracture. She has old L2 compression fracture that is not suitable for vertebroplasty. She underwent sacroplasty bilaterally and she did very well. Her pain was ameliorated, but not completely alleviated. As she remained hemodynamically stable, a decision was made to discharge her back to [facility] to continue the process of rehabilitation and pain management. PHYSICAL EXAMINATION: GENERAL: When I saw her today, she looked well and was clearly in no apparent respiratory distress. No pallor, jaundice, cyanosis or thyromegaly. No jugular venous distention. No lower limb edema. VITAL SIGNS: Her heart rate was 87, blood pressure was 117/68, temperature was 97.6, respiratory rate 20, and oxygen saturation was 97%. HEAD, EYES, EARS, NOSE AND THROAT: Showed normocephalic, atraumatic. NECK: Supple. HEART: Showed normal first and second heart sounds. No gallop, rub or murmur. CHEST: Clear to auscultation. No crepitation or rhonchi. ABDOMEN: Distended, soft, nontender. No guarding or rigidity. No organomegaly. All hernial orifices intact. Bowel sounds normal. NEUROLOGIC: She is awake, alert, responding appropriately. All cranial nerves intact. She moves extremities without difficulty. LABORATORY DATA: Her lab work showed that she continued to have chronic stable hyponatremia at 128. The rest of the labs are stable. She also continued to have normochromic normocytic anemia with hemoglobin of 8.6, hematocrit 27 with normal white cell count and platelets. DISCHARGE MEDICATIONS: She was discharged to continue on following medications: Acetaminophen 650 mg every 4 hours, albuterol sulfate 2.5 mg in 0.5 mL by nebulizer every 4 hours, Dulcolax 5 mg tablet once a day, Colace 100 mg twice a day, ferrous sulfate 325 mg twice a day, hydrocodone/APAP 5/325 one tablet every 4 hours, Singulair 10 mg once a day, multivitamin 1 tablet once a day, ondansetron for Zofran 4 mg every 6 hours, OxyContin 10 mg twice a day, Protonix 40 mg once a day, polyethylene glycol 17 grams daily, psyllium husk for Metamucil 1 capsule once a day. FINAL DISCHARGE DIAGNOSES: 1. Fall with left superior inferior pubic rami fracture, treated nonoperatively with protected immobilization and pain control. 2. She developed worsening right hip pain and was evaluated by the orthopedic surgeon and apparently her right hip joint showed no evidence of fracture; however, MRI showed she has old L2 compression fracture. She also has bilateral sacral ala fracture, which she underwent sacroplasty successfully. 3. She has multiple other medical problems including: A. Chronic obstructive pulmonary disease. B. Chronic constipation. C. Chronic hyponatremia. D. Normochromic normocytic anemia. E. Severe cachexia and malnutrition. The patient will be discharged to [facility] to continue with pain management, DVT prophylaxis and to continue the process of rehabilitation. JHONATAN AGUIAR MD DR: GUS/mari JOB#: [id number] / [id number]
[2020-01-24 11:00] VITALS: BP 98/53
[2020-01-24] MEDS: HYDROcodone/APAP 5/325MG 1 TAB TABLET PO PRN (11:51)
--- NOTE | 2020-01-24 13:39 | NUR ---
Pt. discharged to [facility] via per transportation service.
== END 2020-01-24 13:30 | DRG 515 ==
LOC: 4 NORTH 15:07
PROVIDERS: ADMIT Internal Medicine; ATTEND Internal Medicine
PROC: 0QU13JZ Supplement Sacrum with Synthetic Substitute, Percutaneous Approach (ICD-10-PCS; principal; 2020-01-21)
DX: M84.48XA Pathological fracture, other site, initial encounter for fracture (principal); E43 Unspecified severe protein-calorie malnutrition; E87.1 Hypo-osmolality and hyponatremia; R64 Cachexia; Z68.1 Body mass index [BMI] 19.9 or less, adult; D64.9 Anemia, unspecified; G62.9 Polyneuropathy, unspecified; J44.9 Chronic obstructive pulmonary disease, unspecified; K59.09 Other constipation; M48.061 Spinal stenosis, lumbar region without neurogenic claudication; Z20.828 Contact with and (suspected) exposure to other viral communicable diseases; Z82.49 Family history of ischemic heart disease and other diseases of the circulatory system; Z87.891 Personal history of nicotine dependence; G89.29 Other chronic pain; M19.90 Unspecified osteoarthritis, unspecified site; G54.9 Nerve root and plexus disorder, unspecified; Z88.8 Allergy status to other drugs, medicaments and biological substances
CPT/HCPCS: 22511; 36415; 72148; 80048; 80053; 83605; 85025; 85027; 85610; 85730; 94640; 94760; 99152; 99153; C1713; J0690; J2250; J3010; J3490; J7040; 97110-GP; 97116-GP; 97530-GO; 97530-GP; 97535-GO; G0378; J7613; U0003-CS

== ENCOUNTER 2020-08-06 09:47 | Observation (INO) | payer MEDICARE ==
[~2020-08-06] VITALS: Ht 162.6 cm; Wt 45.9 kg
[2020-08-06] VITALS (7 sets, daily range): BP systolic 100–146; BP diastolic 62–91
[~2020-08-06 09:47] MED LIST: ACET650S19 PO; ALBU2.5V14 NEB; BISA-42 PO; DOCU-109 PO; FERR325T14 PO; HYDR-2759 PO; MONT10TA49 PO; MULT-735 PO; ONDA4TAB7 PO; OXYC20TA34 PO; PANT40TA77 PO; POLY17PO29 PO; PSYL0.5215 PO
--- NOTE | 2020-08-06 10:37 | PHYS DOC ---
Past Medical History Past Medical History: Anemia, Arthritis, CHF, Constipation, COPD, GERD, UTI, Other Additional Past Medical Histor: pelvic fracture,osteoarthritis Past Surgical History: Tubal ligation Additional Past Surgical Histo: "esophagus surgery" Smoking Status: Current Every Day Smoker Additional Information: 0.25 PPD Alcohol Use: None Adult General Chief Complaint Chief Complaint: ABNORMAL LABS [facility] HPI Patient is a 74 year old female presents emergency department for an abnormal lab value. States that she was seen by her PCP yesterday noted to have low hemoglobin. Patient was told to come here to get checked Review of Systems Review of Systems Constitutional: Denies fever or chills [] Eyes: Denies change in visual acuity, redness, or eye pain [] HENT: Denies nasal congestion or sore throat [] Respiratory: Denies cough or shortness of breath [] Cardiovascular: No additional information not addressed in HPI [] GI: Denies abdominal pain, nausea, vomiting, bloody stools or diarrhea [] : Denies dysuria or hematuria [] Musculoskeletal: Denies back pain or joint pain [] Integument: Denies rash or skin lesions [] Neurologic: Denies headache, focal weakness or sensory changes [] Endocrine: Denies polyuria or polydipsia [] All other systems were reviewed and found to be within normal limits, except as documented in this note. Allergies Allergies Allergies Coded Allergies Type Severity Reaction Last Updated Verified Cephalosporins Adverse Reaction Intermediate jitters 01/02/20 Yes bupropion Adverse Reaction Intermediate chest pain 01/02/20 Yes Physical Exam Physical Exam Constitutional: Well developed, well nourished, no acute distress, non-toxic appearance. [] HENT: Normocephalic, atraumatic, bilateral external ears normal, oropharynx m oist, no oral exudates, nose normal. [] Eyes: PERRLA, EOMI, conjunctiva normal, no discharge. [] Neck: Normal range of motion, no tenderness, supple, no stridor. [] Cardiovascular:Heart rate regular rhythm, no murmur [] Lungs & Thorax: Bilateral breath sounds clear to auscultation [] Abdomen: Bowel sounds normal, soft, no tenderness, no masses, no pulsatile masses. [] Skin: Warm, dry, no erythema, no rash. [] Back: No tenderness, no CVA tenderness. [] Extremities: No tenderness, no cyanosis, no clubbing, ROM intact, no edema. [] Neurologic: Alert and oriented X 3, normal motor function, normal sensory function, no focal deficits noted. [] Psychologic: Affect normal, judgement normal, mood normal. [] Current Patient Data Vital Signs Vital Signs Date Time Temp Pulse Resp B/P (MAP) Pulse Ox O2 Delivery O2 Flow Rate FiO2 08/06/20 10:00 98.2 94 22 175/75 (108) 100 Room Air 98.2 EKG EKG [] Radiology/Procedures Radiology/Procedures [] Course & Med Decision Making Course & Med Decision Making Pertinent Labs and Imaging studies reviewed. (See chart for details) [] Dragon Disclaimer Dragon Disclaimer This electronic medical record was generated, in whole or in part, using a voice recognition dictation system. Departure Departure Referrals: UNKNOWN PCP NAME (PCP) JACE ZARAGOZA MD Aug 06, 2020 10:37
[2020-08-06 11:07] LABS: RED BLOOD COUNT 2.47 x10^6/uL (3.50-5.40); RED CELL DISTRIBUTION WIDTH 21.1 % (11.5-14.5); WHITE BLOOD COUNT 4.2 x10^3/uL (4.0-11.0)
[2020-08-06 11:09] LABS: HEMATOCRIT 18.1 % (36.0-47.0); HEMOGLOBIN 5.3 g/dL (12.0-15.5)
--- NOTE | 2020-08-06 12:03 | PDOC1 ---
History and Physical Date of Service: DOS: DATE: 08/06/20 TIME: 12:01 Chief Complaint: Chief Complain: Abnormal lab values History of Present Illness: HPI: Patient is a 74-year-old female with past medical history of anemia, CHF, COPD, UTIs who presents with abnormal lab values from her PCP office. 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 She also reports some dry blood and dark appearing stools that has been like this for fairly long time ever since she started taking iron tablets. But because she was so tired and was constipated she stopped taking iron tablets in the past week. She takes iron pills every other day. Denies any chest pain, abdominal pain, falls, syncope or dizziness. Denies any mark bright red blood stools or diarrhea. No recent weight loss. Of note her last colonoscopy was a few years ago and she said that was normal and no polyps or masses were found. Past Medical/Surgical History: PMH/PSH: Past Medical History: Anemia, Arthritis, CHF, Constipation, COPD, GERD, UTI, pelvic fracture,osteoarthritis Past Surgical History: Recent sacral plasty in January 2020, tubal ligation, "eso phagus surgery" Allergies: Allergies: Coded Allergies: Cephalosporins (Verified Adverse Reaction, Intermediate, jitters, 01/02/20) bupropion (Verified Adverse Reaction, Intermediate, chest pain, 01/02/20) Family History: Family History: Reviewed with no relevant findings Social History: Social History: Smoking Status: Current Every Day Smoker Additional Information: 0.25 PPD Alcohol Use: None Current Medications: Current Medications Active Scripts Active Reported Zofran (Ondansetron Hcl) 4 Mg Tablet 1 Tab PO Q6HRS Montelukast Sodium Tablet (Montelukast Sodium) 10 Mg Tablet 10 Mg PO HS Protonix (Pantoprazole Sodium) 40 Mg Tablet.dr 40 Mg PO DAILYAC Oxycontin (Oxycodone HCl) 20 Mg Tab.er.12h 10 Mg PO BID MDD 2 Tablet(s) 30 Days One-Daily Multi-Vitamin (Multivitamin) 1 Each Tablet 1 Tab PO DAILY 30 Days Miralax (Polyethylene Glycol 3350) 17 Gm Powd.pack 1 Packet PO DAILY 2 Days dissolve in water Metamucil (Psyllium Husk) 0.52 Gm Capsule 1 Cap PO DAILY 30 Days Hydrocodone-Acetamin 5-325 mg (Hydrocodone/Acetaminophen) 1 Each Tablet 1 Each PO PRN Q4HRS PRN Ferrous Sulfate 325 Mg Tablet 1 Tab PO BID Dulcolax (Bisacodyl) 5 Mg Tablet.dr 5 Mg PO PRN DAILY PRN Colace (Docusate Sodium) 100 Mg Capsule 1 Cap PO PRN Q12HRS PRN 30 Days Albuterol Sulfate Conc Neb Soln (Albuterol Sulfate) 2.5 Mg/0.5 Ml Vial.neb 1 Vial NEB Q4HRS Acetaminophen 650 Mg/20.3 Ml Solution 650 Mg PO PRN Q4HRS PRN ROS: Review of Systems Review of System REVIEW OF SYSTEMS: GENERAL: Denies weakness SKIN: No bruising, hair changes or rashes. EYES: No blurred, double or loss of vision. NOSE AND THROAT: No history of nosebleeds, hoarseness or sore throat. HEART: No history of palpitations, chest pain or shortness of breath on exertion. LUNGS: Denies cough, hemoptysis, wheezing or shortness of breath. GASTROINTESTINAL: Denies changes in appetite, nausea, vomiting, diarrhea or constipation. GENITOURINARY: No history of frequency, urgency, hesitancy or nocturia. NEUROLOGIC: Denies history of numbness, tingling, or tremor. PSYCHIATRIC: No history of panic, anxiety or depression. ENDOCRINE: No history of heat or cold intolerance, polyuria or polydipsia. EXTREMITIES: Denies joint pain, pain on walking or stiffness. Physical Exam: Vital Signs: Vital Signs Date Time Temp Pulse Resp B/P (MAP) Pulse Ox O2 Delivery O2 Flow Rate FiO2 08/06/20 10:00 98.2 94 22 175/75 (108) 100 Room Air 98.2 Physcial Exam: GEN: No apparent distress. Alert and oriented HEENT: Normal cephalic, atraumatic, external auditory canals are patent EYES: Extraocular muscles are intact, pupil are equally round and reactive to light and accommodation MUSCULOSKELETAL: Well developed , well nourished, good range of motion ENDOCRINE: No thyromegaly was palpated LYMPHATICS: No cervical chain or axillary nodes were noted HEMATOPOIETIC: No bruising NECK: Supple, no JVD, no thyromegaly was noted LUNGS: Clear to auscultation in all lung monte without rhonchi or wheezing HEART: RRR, S!, S2 present. Peripheral pulses intact, no obvious murmurs noted ABDOMEN: Soft, nontender. Positive bowel sounds, no organomegaly, normal bowel sounds EXTREMITIES: Without clubbing, cyanosis, or edema. Pedal pulses intact. Negative Homans sign NEUROLOGIC: Normal speech and tone. A&O x 3, moves all extremities, no obvious focal deficits PSYCHIATRIC: Normal affect, normal mood. Stable SKIN: No ulcerations or rashes, good skin turgor, no jaundice VASCULAR: Good capillary refill, neurovascular bundle appears to be intact Labs: Labs: Laboratory Tests Test 08/06/20 10:18 White Blood Count 4.2 x10^3/uL (4.0-11.0) Red Blood Count 2.47 x10^6/uL (3.50-5.40) Hemoglobin 5.3 g/dL (12.0-15.5) Hematocrit 18.1 % (36.0-47.0) Mean Corpuscular Volume 74 fL (79-100) Mean Corpuscular Hemoglobin 21 pg (25-35) Mean Corpuscular Hemoglobin Concent 29 g/dL (31-37) Red Cell Distribution Width 21.1 % (11.5-14.5) Platelet Count 227 x10^3/uL (140-400) Laboratory Tests Test 08/06/20 10:18 White Blood Count 4.2 x10^3/uL (4.0-11.0) Red Blood Count 2.47 x10^6/uL (3.50-5.40) Hemoglobin 5.3 g/dL (12.0-15.5) Hematocrit 18.1 % (36.0-47.0) Mean Corpuscular Volume 74 fL (79-100) Mean Corpuscular Hemoglobin 21 pg (25-35) Mean Corpuscular Hemoglobin Concent 29 g/dL (31-37) Red Cell Distribution Width 21.1 % (11.5-14.5) Platelet Count 227 x10^3/uL (140-400) Images: Images No recent images to review Assessment/Plan Assessment/Plan Acute symptomatic profound microcytic anemia Admit to medicine for further management Pending 2 units PRBC Trend H&H Pending FOBT GI consult Hold for DVT prophylaxis Protonix GI prophylaxis ADA diet Full code Discussed with RN and SW Disposition pending GI evaluation Surrogate decision maker is the daughter Justifications for Admission Other Justification JJ LAUREANO MD Aug 06, 2020 12:03
[2020-08-06] MEDS ORDERED: ACETAMINOPHEN 325 MG TABLET. PO PRN (13:15)
[2020-08-06] MEDS ORDERED: ONDANSETRON PF 4 MG/2 ML VIAL. IVP PRN (13:15)
[2020-08-06] MEDS ORDERED: DEXTROSE 50% 25 GM / 50ML DISP.SYRIN. IV PRN (13:15)
[2020-08-06] MEDS ORDERED: SENNOSIDES 8.6 MG TABLET PO PRN (13:15)
[2020-08-06] MEDS ORDERED: DOCUSATE SODIUM 100 MG CAPSULE. PO PRN (13:15)
[2020-08-06] MEDS ORDERED: FURO20TA3 PO (13:27)
[2020-08-06] MEDS ORDERED: NITR100C PO (13:27)
[2020-08-06] MEDS ORDERED: POTA10TA12 PO (13:27)
[2020-08-06 13:36] LABS: ALBUMIN 1.7 g/dL (3.4-5.0); ALBUMIN/GLOBULIN RATIO 0.3 (1.0-1.7); CALCIUM 7.7 mg/dL (8.5-10.1); CREATININE 0.9 mg/dL (0.6-1.0); GFR 61.4; MAGNESIUM 1.7 mg/dL (1.8-2.4); POTASSIUM 3.6 mmol/L (3.5-5.1); TOTAL BILIRUBIN 0.4 mg/dL (0.2-1.0); TOTAL PROTEIN 7.7 g/dL (6.4-8.2)
[2020-08-06 14:41] LABS: FECAL OB PT POSITIVE (NEG)
--- NOTE | 2020-08-06 15:30 | PDOC2 ---
GI CONSULT Reason For Consult: anemia HPI: HPI: 74-year-old female with past medical history of anemia last seen for this by GI in house 12/2019, CHF, COPD, UTIs who presents with Hgb 5.4 (prior 01/2020 was 8.4). LFTS were also up witgh AST 38 and alk phos 250. 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 She also reports some dry blood and dark appearing stools that has been like this f or fairly long time ever since she started taking iron tablets. But because she was so tired and was constipated she stopped taking iron tablets in the past week. She takes iron pills every other day. Denies any chest pain, abdominal pain, falls, syncope or dizziness. Denies any mark bright red blood stools or diarrhea. No recent weight loss. H/o GERD - never really had significant heartburn/dyspepsia but her dentist told her it was affecting her teeth so she takes Prilosec QD. Has had some denture issues since pandemic began and has had some trouble w/ follow-up for adjustment - denies dysphagia but says she just has to try to chew her food really well. No n/v or abd pain. Denies diarrhea and constipation. Says was struggling to gain weight before fall/fracture and since has lost some. Had an EGD for "throat stretching" ~3 years ago in [place]. No previous colonoscopy. No GB, pancreas, or PUD history. Might have been told her "liver is off" in the past. Taking Naproxen regularly. She was instructed to have EGD/Colon done after her hospitalization for hip fx 12/2019 but has not yet PMH: PMH: Past Medical/Surgical History: PMH/PSH: Past Medical History: Anemia, Arthritis, CHF, Constipation, COPD, GERD, UTI, pelvic fracture,osteoarthritis Past Surgical History: Recent sacral plasty in January 2020, tubal ligation, "esophagus surgery" Allergies: Allergies: Coded Allergies: Cephalosporins (Verified Adverse Reaction, Intermediate, jitters, 01/02/20) bupropion (Verified Adverse Reaction, Intermediate, chest pain, 01/02/20) FH: Family History: Other (family members "with bad livers even though they don't drink") Social History: Social History: Smoking Status: Current Every Day Smoker Additional Information: 0.25 PPD Alcohol Use: None Current Medications: Current Medications Active Scripts Active Reported Zofran (Ondansetron Hcl) 4 Mg Tablet 1 Tab PO Q6HRS Montelukast Sodium Tablet (Montelukast Sodium) 10 Mg Tablet 10 Mg PO HS Protonix (Pantoprazole Sodium) 40 Mg Tablet.dr 40 Mg PO DAILYAC Oxycontin (Oxycodone HCl) 20 Mg Tab.er.12h 10 Mg PO BID MDD 2 Tablet(s) 30 Days One-Daily Multi-Vitamin (Multivitamin) 1 Each Tablet 1 Tab PO DAILY 30 Days Miralax (Polyethylene Glycol 3350) 17 Gm Powd.pack 1 Packet PO DAILY 2 Days dissolve in water Metamucil (Psyllium Husk) 0.52 Gm Capsule 1 Cap PO DAILY 30 Days Hydrocodone-Acetamin 5-325 mg (Hydrocodone/Acetaminophen) 1 Each Tablet 1 Each PO PRN Q4HRS PRN Ferrous Sulfate 325 Mg Tablet 1 Tab PO BID Dulcolax (Bisacodyl) 5 Mg Tablet.dr 5 Mg PO PRN DAILY PRN Colace (Docusate Sodium) 100 Mg Capsule 1 Cap PO PRN Q12HRS PRN 30 Days Albuterol Sulfate Conc Neb Soln (Albuterol Sulfate) 2.5 Mg/0.5 Ml Vial.neb 1 Vial NEB Q4HRS Acetaminophen 650 Mg/20.3 Ml Solution 650 Mg PO PRN Q4HRS PRN FH: Family History: Other Social History: Smoke: <1 pack per day ALCOHOL: occassional Drugs: None ROS: REVIEW OF SYSTEMS: GENERAL: Denies weakness SKIN: No bruising, hair changes or rashes. EYES: No blurred, double or loss of vision. NOSE AND THROAT: No history of nosebleeds, hoarseness or sore throat. HEART: No history of palpitations, chest pain or shortness of breath on exertion. LUNGS: Denies cough, hemoptysis, wheezing or shortness of breath. GASTROINTESTINAL: Denies changes in appetite, nausea, vomiting, diarrhea or constipation. GENITOURINARY: No history of frequency, urgency, hesitancy or nocturia. NEUROLOGIC: Denies history of numbness, tingling, or tremor. PSYCHIATRIC: No history of panic, anxiety or depression. ENDOCRINE: No history of heat or cold intolerance, polyuria or polydipsia. VItals: Vitals: Vital Signs Date Time Temp Pulse Resp B/P (MAP) Pulse Ox O2 Delivery O2 Flow Rate FiO2 08/06/20 13:15 97.6 95 18 100/62 (75) 93 Room Air 97.6 Labs: Labs: Laboratory Tests Test 08/06/20 10:18 08/06/20 14:00 White Blood Count 4.2 x10^3/uL (4.0-11.0) Red Blood Count 2.47 x10^6/uL (3.50-5.40) Hemoglobin 5.3 g/dL (12.0-15.5) Hematocrit 18.1 % (36.0-47.0) Mean Corpuscular Volume 74 fL (79-100) Mean Corpuscular Hemoglobin 21 pg (25-35) Mean Corpuscular Hemoglobin Concent 29 g/dL (31-37) Red Cell Distribution Width 21.1 % (11.5-14.5) Platelet Count 227 x10^3/uL (140-400) Sodium Level 135 mmol/L (136-145) Potassium Level 3.6 mmol/L (3.5-5.1) Chloride Level 100 mmol/L (98-107) Carbon Dioxide Level 25 mmol/L (21-32) Anion Gap 10 (6-14) Blood Urea Nitrogen 18 mg/dL (7-20) Creatinine 0.9 mg/dL (0.6-1.0) Estimated GFR (Cockcroft-Gault) 61.4 BUN/Creatinine Ratio 20 (6-20) Glucose Level 100 mg/dL (70-99) Calcium Level 7.7 mg/dL (8.5-10.1) Magnesium Level 1.7 mg/dL (1.8-2.4) Total Bilirubin 0.4 mg/dL (0.2-1.0) Aspartate Amino Transf (AST/SGOT) 38 U/L (15-37) Alanine Aminotransferase (ALT/SGPT) 28 U/L (14-59) Alkaline Phosphatase 250 U/L (46-116) Total Protein 7.7 g/dL (6.4-8.2) Albumin 1.7 g/dL (3.4-5.0) Albumin/Globulin Ratio 0.3 (1.0-1.7) Stool Occult Blood Positive (NEG) Imaging: Imaging: none PE: GEN: NAD HEENT: Atraumatic, PERRLA LUNGS: CTAB HEART: RRR, no murmurs ABD: NABS, S/ND/NT, no masses EXTREMITY: No edema SKIN: No rashes, no jaundice NEURO/PSYCH: A & O 3 A/P: A/P: A) 1) Anemia 2) elevated LFTs P) 1) PRBCs 2) ppt gtts 3) check ggt and abd sono 4) Check COVID test in anticipation of EGD (?colon) during the week KOURTNEY CARLOS MD Aug 06, 2020 15:30
[2020-08-06 15:47] LABS: BILIRUBIN,URINE NEGATIVE (NEG); CLARITY,URINE CLEAR; COLOR,URINE YELLOW; NITRITE,URINE NEGATIVE (NEG); PH,URINE 6.5 (<5.0-8.0); PROTEIN,URINE NEGATIVE (NEG-TRACE)
[2020-08-06 15:59] LABS: BACTERIA,URINE FEW /HPF (0-FEW)
[2020-08-06 16:00] LABS: RBC,URINE OCC /HPF (0-2)
[2020-08-06] MEDS: PANTOPRAZOLE SODIUM IV DRIP 80 MG in IV NORMAL SALINE 100ML 100 ML IV SCH (16:19)
[2020-08-06] MEDS ORDERED: FUROSEMIDE 20 MG/2 ML VIAL. IVP ONE (22:00)
[2020-08-06] MEDS: ALBUTEROL SULFATE 2.5 MG/3 ML NEBU. NEB SCH (22:00)
[2020-08-06 23:39] LABS: BASO % 0 % (0-3); EOS % 1 % (0-3); HEMATOCRIT 22.5 % (36.0-47.0); LYMPH # 0.3 x10^3/uL (1.0-4.8); LYMPH % 6 % (24-48); MEAN CORPUSCULAR HEMOGLOBIN 23 pg (25-35); MEAN CORPUSCULAR HGB CONC 30 g/dL (31-37); MEAN CORPUSCULAR VOLUME 76 fL (79-100); MONO # 0.8 x10^3/uL (0.0-1.1); MONO % 14 % (0-9); NEUT # 4.2 x10^3/uL (1.8-7.7); NEUT % 79 % (31-73); PLATELET COUNT 214 x10^3/uL (140-400); RED BLOOD COUNT 2.96 x10^6/uL (3.50-5.40); RED CELL DISTRIBUTION WIDTH 20.8 % (11.5-14.5); WHITE BLOOD COUNT 5.4 x10^3/uL (4.0-11.0)
[2020-08-06 23:48] LABS: HEMOGLOBIN 6.8 g/dL (12.0-15.5)
[2020-08-07] VITALS (10 sets, daily range): BP systolic 88–114; BP diastolic 42–77
--- NOTE | 2020-08-07 01:06 | RAD ---
EXAM: XR CHEST 1V 08/07/2020 12:07 AM CLINICAL INDICATION: CHF, shortness of breath COMPARISON: Chest radiograph 01/04/2020 TECHNIQUE: AP upright view the chest FINDINGS: Cardiomegaly is unchanged. There are new ill-defined nodular and hazy opacities in the carlos g bases. Probable small pleural effusions. Diffuse interstitial prominence is redemonstrated. There i s no pneumothorax. Old healed left midclavicular fracture and old left rib fractures are redemonstrat ed. IMPRESSION: 1. Bilateral interstitial prominence with new opacities in the bases. This could represent mild pulmo nary edema or be seen with infection. 2. Probable small pleural effusions. 3. Cardiomegaly. Electronically signed by: Lisa Roldan MD (08/07/2020 1:03 AM) [id number]
[2020-08-07 01:58] LABS: % BANDS 3 % (0-9); % LYMPHS 4 % (24-48); % MONOS 7 % (0-10); % SEGS 86 % (35-66); PLT ESTIMATE ADEQUATE (ADEQUATE)
[2020-08-07 02:06] LABS: ANISOCYTOSIS MOD; HYPOCHROMIA SLIGHT
[2020-08-07 02:08] LABS: OVALOCYTES OCC; SPHEROCYTES FEW
[2020-08-07] MEDS: PANTOPRAZOLE SODIUM IV DRIP 80 MG in IV NORMAL SALINE 100ML 100 ML IV SCH ×3 (02:45→19:32)
[2020-08-07] MEDS: ALBUTEROL SULFATE 2.5 MG/3 ML NEBU. NEB SCH ×5 (06:00→22:00)
[2020-08-07 09:08] LABS: CALCIUM 7.6 mg/dL (8.5-10.1); CREATININE 0.9 mg/dL (0.6-1.0); GFR 61.4; MAGNESIUM 1.6 mg/dL (1.8-2.4); PHOSPHORUS 3.2 mg/dL (2.6-4.7); POTASSIUM 3.6 mmol/L (3.5-5.1)
[2020-08-07 09:13] LABS: BASO % 1 % (0-3); EOS # 0.1 x10^3/uL (0.0-0.7); EOS % 2 % (0-3); HEMATOCRIT 26.5 % (36.0-47.0); HEMOGLOBIN 8.2 g/dL (12.0-15.5); LYMPH # 0.5 x10^3/uL (1.0-4.8); LYMPH % 12 % (24-48); MEAN CORPUSCULAR HEMOGLOBIN 25 pg (25-35); MEAN CORPUSCULAR HGB CONC 31 g/dL (31-37); MEAN CORPUSCULAR VOLUME 79 fL (79-100); MONO # 0.7 x10^3/uL (0.0-1.1); MONO % 16 % (0-9); NEUT # 2.9 x10^3/uL (1.8-7.7); NEUT % 69 % (31-73); PLATELET COUNT 191 x10^3/uL (140-400); RED BLOOD COUNT 3.36 x10^6/uL (3.50-5.40); RED CELL DISTRIBUTION WIDTH 21.5 % (11.5-14.5); WHITE BLOOD COUNT 4.1 x10^3/uL (4.0-11.0)
--- NOTE | 2020-08-07 10:08 | PDOC ---
[facility] PROGRESS NOTE Date of Service DOS: DATE: 08/07/20 TIME: 10:07 Chief Complaint Chief Complaint Acute symptomatic profound microcytic anemia Admit to medicine for further management Pending 2 units PRBC Trend H&H Pending FOBT GI consult Hold for DVT prophylaxis Protonix GI prophylaxis ADA diet Full code Discussed with RN and SW Disposition pending GI evaluation Surrogate decision maker is the daughter History of Present Illness History of Present Illness 08/07/2020 No acute events overnight. Patient received 1 unit PRBC last night and had some shortness of breath afterwards. 20 mg IV Lasix was administered. Shortness of breath improved and patient is saturating 94% on 2 L nasal cannula. Patient remains afebrile and asymptomatic at this time with improvement after the Lasix. Pending 1 unit PRBC transfusion this morning. Patient's chart, labs, images were reviewed and discussed with RN 74-year-old female with past medical history of anemia, CHF, COPD, UTIs who presents with abnormal lab values from her PCP office. 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 She also reports some dry blood and dark appearing stools that has been like this for fairly long time ever since she started taking iron tablets. But because she was so tired and was constipated she stopped taking iron tablets in the past week. She takes iron pills every other day. Denies any chest pain, abdominal pain, falls, syncope or dizziness. Denies any mark bright red blood stools or diarrhea. No recent weight loss. Of note her last colonoscopy was a few years ago and she said that was normal and no polyps or masses were found. Vitals/I&O Vitals/I&O: Vital Signs Date Time Temp Pulse Resp B/P (MAP) Pulse Ox O2 Delivery O2 Flow Rate FiO2 08/07/20 08:31 97.5 85 18 110/77 97.5 08/07/20 08:00 Nasal Cannula 2.0 08/07/20 02:43 95 I & O 08/06/20 08/06/20 08/07/20 15:00 23:00 07:00 Intake Total 775 ml 300 ml Balance 775 ml 300 ml Physical Exam Lungs: Clear Labs Labs: Laboratory Tests Test 08/06/20 10:18 08/06/20 14:00 08/06/20 23:12 08/07/20 01:00 White Blood Count 4.2 x10^3/uL (4.0-11.0) 5.4 x10^3/uL (4.0-11.0) Red Blood Count 2.47 x10^6/uL (3.50-5.40) 2.96 x10^6/uL (3.50-5.40) Hemoglobin 5.3 g/dL (12.0-15.5) 6.8 g/dL (12.0-15.5) Hematocrit 18.1 % (36.0-47.0) 22.5 % (36.0-47.0) Mean Corpuscular Volume 74 fL (79-100) 76 fL (79-100) Mean Corpuscular Hemoglobin 21 pg (25-35) 23 pg (25-35) Mean Corpuscular Hemoglobin Concent 29 g/dL (31-37) 30 g/dL (31-37) Red Cell Distribution Width 21.1 % (11.5-14.5) 20.8 % (11.5-14.5) Platelet Count 227 x10^3/uL (140-400) 214 x10^3/uL (140-400) Sodium Level 135 mmol/L (136-145) Potassium Level 3.6 mmol/L (3.5-5.1) Chloride Level 100 mmol/L (98-107) Carbon Dioxide Level 25 mmol/L (21-32) Anion Gap 10 (6-14) Blood Urea Nitrogen 18 mg/dL (7-20) Creatinine 0.9 mg/dL (0.6-1.0) Estimated GFR (Cockcroft-Gault) 61.4 BUN/Creatinine Ratio 20 (6-20) Glucose Level 100 mg/dL (70-99) Calcium Level 7.7 mg/dL (8.5-10.1) Magnesium Level 1.7 mg/dL (1.8-2.4) Total Bilirubin 0.4 mg/dL (0.2-1.0) Aspartate Amino Transf (AST/SGOT) 38 U/L (15-37) Alanine Aminotransferase (ALT/SGPT) 28 U/L (14-59) Alkaline Phosphatase 250 U/L (46-116) Total Protein 7.7 g/dL (6.4-8.2) Albumin 1.7 g/dL (3.4-5.0) Albumin/Globulin Ratio 0.3 (1.0-1.7) Stool Occult Blood Positive (NEG) Neutrophils (%) (Auto) 79 % (31-73) Lymphocytes (%) (Auto) 6 % (24-48) Monocytes (%) (Auto) 14 % (0-9) Eosinophils (%) (Auto) 1 % (0-3) Basophils (%) (Auto) 0 % (0-3) Neutrophils # (Auto) 4.2 x10^3/uL (1.8-7.7) Lymphocytes # (Auto) 0.3 x10^3/uL (1.0-4.8) Monocytes # (Auto) 0.8 x10^3/uL (0.0-1.1) Eosinophils # (Auto) 0.0 x10^3/uL (0.0-0.7) Basophils # (Auto) 0.0 x10^3/uL (0.0-0.2) Segmented Neutrophils % 86 % (35-66) Band Neutrophils % 3 % (0-9) Lymphocytes % 4 % (24-48) Monocytes % 7 % (0-10) Platelet Estimate Adequate (ADEQUATE) Hypochromasia Slight Anisocytosis Mod Spherocytes Few Ovalocytes Occ LS-Fvp-L-Type Natriuretic Peptide 4737 pg/mL (0-124) Test 08/07/20 08:20 White Blood Count 4.1 x10^3/uL (4.0-11.0) Red Blood Count 3.36 x10^6/uL (3.50-5.40) Hemoglobin 8.2 g/dL (12.0-15.5) Hematocrit 26.5 % (36.0-47.0) Mean Corpuscular Volume 79 fL (79-100) Mean Corpuscular Hemoglobin 25 pg (25-35) Mean Corpuscular Hemoglobin Concent 31 g/dL (31-37) Red Cell Distribution Width 21.5 % (11.5-14.5) Platelet Count 191 x10^3/uL (140-400) Neutrophils (%) (Auto) 69 % (31-73) Lymphocytes (%) (Auto) 12 % (24-48) Monocytes (%) (Auto) 16 % (0-9) Eosinophils (%) (Auto) 2 % (0-3) Basophils (%) (Auto) 1 % (0-3) Neutrophils # (Auto) 2.9 x10^3/uL (1.8-7.7) Lymphocytes # (Auto) 0.5 x10^3/uL (1.0-4.8) Monocytes # (Auto) 0.7 x10^3/uL (0.0-1.1) Eosinophils # (Auto) 0.1 x10^3/uL (0.0-0.7) Basophils # (Auto) 0.0 x10^3/uL (0.0-0.2) Sodium Level 135 mmol/L (136-145) Potassium Level 3.6 mmol/L (3.5-5.1) Chloride Level 100 mmol/L (98-107) Carbon Dioxide Level 28 mmol/L (21-32) Anion Gap 7 (6-14) Blood Urea Nitrogen 17 mg/dL (7-20) Creatinine 0.9 mg/dL (0.6-1.0) Estimated GFR (Cockcroft-Gault) 61.4 Glucose Level 83 mg/dL (70-99) Calcium Level 7.6 mg/dL (8.5-10.1) Phosphorus Level 3.2 mg/dL (2.6-4.7) Magnesium Level 1.6 mg/dL (1.8-2.4) Gamma Glutamyl Transpeptidase 75 U/L (5-55) Assessment and Plan Assessmemt and Plan Problems Medical Problems: (1) Acute anemia Status: Acute Comment Review of Relevant I have reviewed the following items ariana (where applicable) has been applied. Medications: Current Medications Medications (Trade) Dose Ordered Sig/Wendi Route PRN Reason Start Time Stop Time Status Last Admin Dose Admin Pantoprazole Sodium 80 mg/ Sodium Chloride 100 ml @ 10 mls/hr Q10H IV 08/06/20 15:30 08/07/20 02:45 Furosemide (Lasix) 20 mg 1X ONCE IVP 08/06/20 22:00 08/06/20 22:01 DC 08/06/20 21:46 Justifications for Admission Other Justification JJ LAUREANO MD Aug 07, 2020 10:08
--- NOTE | 2020-08-07 11:19 | RAD ---
STUDY: Realtime grayscale and color Doppler ultrasonography of the right upper quadrant INDICATION: Elevated liver function tests. COMPARISON: CT abdomen/pelvis 01/05/2020. Findings: Limited study due to patient shortness of breath. The entirety of the pancreas was not able to be visualized. No evidence for a mass or ductal dilatati on at the visualized portion. Nonaneurysmal aorta measuring up to 2.2 cm transverse. Unremarkable IVC at the liver. Patent main por roberto carlos vein with hepatopedal flow. The liver is within normal limits for size. Mildly increased parenchymal echogenicity. The right kidney measures 8.7 cm in length. No hydronephrosis. No appreciable complex cyst or mass. I ntrarenal stones identified on the recent CT are not well visualized on this exam. Common bile duct diameter is within normal limits for patient age at 0.6 cm. Postprandial appearance of the gallbladder without visualized stones or sludge. Wall thickness measures under 0.3 cm. Trace free fluid ascites adjacent to the liver Impression: 1. The study was limited due to patient shortness of breath. The entirety of the pancreas was not vi sualized. 2. Mildly increased hepatic parenchymal echogenicity possibly on account of fatty infiltration. The hepatic margins are slightly undulating but not overtly nodular to suggest cirrhosis. 3. Postprandial appearance of the gallbladder without evidence for acute cholecystitis. Unremarkable biliary tree. 4. Trace free fluid adjacent to the liver. Electronically signed by: SHAY MANZANO MD (08/07/2020 11:16 AM) [facility]
--- NOTE | 2020-08-07 14:13 | PDOC ---
Date of Service: DATE: 08/07/20 TIME: 14:10 Subjective: Subjective: got prbcs hgb 8.2 Objective: Vital Signs: Vital Signs Date Time Temp Pulse Resp B/P (MAP) Pulse Ox O2 Delivery O2 Flow Rate FiO2 08/07/20 11:00 97.9 85 18 110/46 (67) 96 Nasal Cannula 2.0 97.9 Labs: Laboratory Tests Test 08/06/20 23:12 08/07/20 01:00 08/07/20 08:20 White Blood Count 5.4 x10^3/uL (4.0-11.0) 4.1 x10^3/uL (4.0-11.0) Red Blood Count 2.96 x10^6/uL (3.50-5.40) 3.36 x10^6/uL (3.50-5.40) Hemoglobin 6.8 g/dL (12.0-15.5) 8.2 g/dL (12.0-15.5) Hematocrit 22.5 % (36.0-47.0) 26.5 % (36.0-47.0) Mean Corpuscular Volume 76 fL (79-100) 79 fL (79-100) Mean Corpuscular Hemoglobin 23 pg (25-35) 25 pg (25-35) Mean Corpuscular Hemoglobin Concent 30 g/dL (31-37) 31 g/dL (31-37) Red Cell Distribution Width 20.8 % (11.5-14.5) 21.5 % (11.5-14.5) Platelet Count 214 x10^3/uL (140-400) 191 x10^3/uL (140-400) Neutrophils (%) (Auto) 79 % (31-73) 69 % (31-73) Lymphocytes (%) (Auto) 6 % (24-48) 12 % (24-48) Monocytes (%) (Auto) 14 % (0-9) 16 % (0-9) Eosinophils (%) (Auto) 1 % (0-3) 2 % (0-3) Basophils (%) (Auto) 0 % (0-3) 1 % (0-3) Neutrophils # (Auto) 4.2 x10^3/uL (1.8-7.7) 2.9 x10^3/uL (1.8-7.7) Lymphocytes # (Auto) 0.3 x10^3/uL (1.0-4.8) 0.5 x10^3/uL (1.0-4.8) Monocytes # (Auto) 0.8 x10^3/uL (0.0-1.1) 0.7 x10^3/uL (0.0-1.1) Eosinophils # (Auto) 0.0 x10^3/uL (0.0-0.7) 0.1 x10^3/uL (0.0-0.7) Basophils # (Auto) 0.0 x10^3/uL (0.0-0.2) 0.0 x10^3/uL (0.0-0.2) Segmented Neutrophils % 86 % (35-66) Band Neutrophils % 3 % (0-9) Lymphocytes % 4 % (24-48) Monocytes % 7 % (0-10) Platelet Estimate Adequate (ADEQUATE) Hypochromasia Slight Anisocytosis Mod Spherocytes Few Ovalocytes Occ LK-Oxs-Z-Type Natriuretic Peptide 4737 pg/mL (0-124) Sodium Level 135 mmol/L (136-145) Potassium Level 3.6 mmol/L (3.5-5.1) Chloride Level 100 mmol/L (98-107) Carbon Dioxide Level 28 mmol/L (21-32) Anion Gap 7 (6-14) Blood Urea Nitrogen 17 mg/dL (7-20) Creatinine 0.9 mg/dL (0.6-1.0) Estimated GFR (Cockcroft-Gault) 61.4 Glucose Level 83 mg/dL (70-99) Calcium Level 7.6 mg/dL (8.5-10.1) Phosphorus Level 3.2 mg/dL (2.6-4.7) Magnesium Level 1.6 mg/dL (1.8-2.4) Gamma Glutamyl Transpeptidase 75 U/L (5-55) Physical Exam: Physical Exam: GEN: NAD HEENT: Atraumatic, PERRLA LUNGS: CTAB HEART: RRR, no murmurs ABD: NABS, S/ND/NT, no masses EXTREMITY: No edema SKIN: No rashes, no jaundice NEURO/PSYCH: A & O 3 Assessment & Plan: Assessment : A/P: A/P: A) 1) Anemia 2) elevated LFTs Plan: P) 1)good response to PRBCs 2) change ppi to po 3) GGT elevated suggestive of GI source of elevated alk phos. Await abd cucao 4) Consider EGD. Can be done as outpatient if she prefers . Primary's note with colon a few years ago. Unclear to me if done Justicifation of Admission Dx: Justifications for Admission: Justification of Admission Dx: N/A KOURTNEY CARLOS MD Aug 07, 2020 14:13
[2020-08-08 03:00] VITALS: BP 103/56
[2020-08-08] MEDS: ALBUTEROL SULFATE 2.5 MG/3 ML NEBU. NEB SCH ×2 (05:26→10:00)
[2020-08-08 07:00] VITALS: BP 127/67
[2020-08-08] MEDS ORDERED: PANTOPRAZOLE 40 MG TABLET.DR. PO SCH (07:30)
--- NOTE | 2020-08-08 10:40 | PDOC ---
Date of Service: DATE: 08/08/20 TIME: 10:32 Subjective: Subjective: Not breathing too good today. Denies bleeding. Tolerating diet. I asked if she is interested in having EGD and colonoscopy at some point - she asks what that means. I explained the procedures - she says she "doesn't like to mess with stuff like that" and is not sure she wants to pursue 'scopes. Objective: Vital Signs: Vital Signs Date Time Temp Pulse Resp B/P (MAP) Pulse Ox O2 Delivery O2 Flow Rate FiO2 08/08/20 07:00 97.5 85 18 127/67 (87) 98 Nasal Cannula 1.0 97.5 Labs: URINE CULTURE Final Final GREATER THAN 100,000 CFU/ML GRAM NEGATIVE RODS on 01/05/20 at 0934 FINAL ID= [ESCHERICHIA COLI] Imaging: Abd US 08/06 Impression: 1. The study was limited due to patient shortness of breath. The entirety of the pancreas was not visualized. 2. Mildly increased hepatic parenchymal echogenicity possibly on account of fatty infiltration. The hepatic margins are slightly undulating but not overtly nodular to suggest cirrhosis. 3. Postprandial appearance of the gallbladder without evidence for acute cholecystitis. Unremarkable biliary tree. 4. Trace free fluid adjacent to the liver. PE: GEN: thin, slowly putting butter and jelly on toast LUNGS: audible wheezing, NC HEART: RRR ABD: soft, non-tender NEURO/PSYCH: maybe forgetful A/P: SOA, UTI, hypomagnesemia - per primary Chronic anemia, +Hemoccult - denies obvious bleeding - Hgb improved w/ transfusion (2 units pRBCs) Elevated AST and Alk Phos, fatty liver H/o GERD - on PO PPI CRC screen - none -- Denies bleeding. Not sure she wants to pursue scopes. Justicifation of Admission Dx: Justifications for Admission: Justification of Admission Dx: N/A MANOHAR BARBOUR Aug 08, 2020 10:40
[2020-08-08 11:00] VITALS: BP 119/60
--- NOTE | 2020-08-08 11:20 | NUR ---
SW following. Discussed with RN, pt from home alone, 1L (does not use oxygen at home), regular diet. PT recommending home health. HARIKA met with pt, pt agreeable, has had home health before but can't remember who it was. Would like the same company if SW can figure out who it was, otherwise, no preference. HARIKA attempted to contact [facility] to determine if they set pt up with home health when she discharged from the facility. HARIKA will attempt again later. HARIKA will continue to follow. Addendum: 08/08/20 at 1438 by ANA MARIA SHABAZZ RN titrated pt off oxygen. Discharge order for home with home health. HARIKA unable to reach [facility] BanksAlbert Cardona with [facility] met with pt, pt agreeable and accepted. Discharge home with [facility]. RN notified.
--- NOTE | 2020-08-08 11:25 | PDOC ---
[facility] [facility] PROGRESS NOTE Date of Service DOS: DATE: 08/08/20 TIME: 11:24 Chief Complaint Chief Complaint Acute symptomatic profound microcytic anemia - s/p 2u PRBC with Hb to 8.2 Chronic diastolic CHF COPD UTIs Protonix GI prophylaxis ADA diet Full code Discussed with RN and SW Disposition pending GI evaluation Surrogate decision maker is the daughter History of Present Illness History of Present Illness Ms Patel is a 74-year-old female with past medical history of anemia, CHF, COPD, UTIs who presents with abnormal lab values from her PCP office. 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 She also reports some dry blood and dark appearing stools that has been like this for fairly long time ever since she started taking iron tablets. But because she was so tired and was constipated she stopped taking iron tablets in the past week. She takes iron pills every other day. Denies any chest pain, abdominal pain, falls, syncope or dizziness. Denies any mark bright red blood stools or diarrhea. No recent weight loss. Of note her last colonoscopy was a few years ago and she said that was normal and no polyps or masses were found. Abdominal US negative for cirrhosis or gallbladder disease. GI consulted. 08/07: Hb 5.3, to 6.8 s/p 1u PRBC. Some shortness of breath afterwards. 20 mg IV Lasix was administered. Shortness of breath improved and patient is saturating 94% on 2 L nasal cannula. Hb to 8.2 after 2u PRBC total, feeling stronger, she d/w GI she does not wish to pursue further EGD and colonoscopy and her SOB improved after IV lasix, mag replace, wishes for discharge home and outpatient GI f/u. Vitals/I&O Vitals/I&O: Vital Signs Date Time Temp Pulse Resp B/P (MAP) Pulse Ox O2 Delivery O2 Flow Rate FiO2 08/08/20 07:00 97.5 85 18 127/67 (87) 98 Nasal Cannula 1.0 97.5 I & O 08/07/20 08/07/20 08/08/20 15:00 23:00 07:00 Intake Total 510 ml 300 ml Balance 510 ml 300 ml Physical Exam Lungs: Clear Assessment and Plan Assessmemt and Plan Problems Medical Problems: (1) Acute anemia Status: Acute Comment Review of Relevant I have reviewed the following items ariana (where applicable) has been applied. Medications: Current Medications Medications (Trade) Dose Ordered Sig/Wendi Route PRN Reason Start Time Stop Time Status Last Admin Dose Admin Pantoprazole Sodium (Protonix) 40 mg DAILYAC PO 08/08/20 07:30 08/08/20 09:06 Justifications for Admission Other Justification SAVANNAH TRIMBLE MD Aug 08, 2020 11:25
--- NOTE | 2020-08-08 11:53 | SNU/HH DC ---
DISCHARGE WITH HOME HEALTH DISCHARGE INFORMATION: Discharge Date: Aug 08, 2020 Final Diagnosis: Problems Medical Problems: (1) Acute anemia Status: Acute Condition on Discharge: Stable CODE STATUS: Code Status: Full HOME HEALTH: Face to Face: I certify this patient is under my care and that I, or a nurse practitioner or physician's elder assistant working with me, had a face to face encounter that meets the physician face to face encounter requirements with this patient on 08/08/20. Medical Complications: DJD, Falls Detention For: Assess & Educate Safety, Assess/Skilled Observatio RN For Eval/Treatment: Yes Physical Therapy For: Evalulation/Treatment Occupational Therapy For: Evaluation/Treatment Pt Meets Homebound Status: Extreme weakness w/ amb. POST DISCHARGE ORDERS: Activity Instructions for Disc: Activity as tolerated, Avoid exertion Weight Bearing Status after Di: As tolerated DIET AFTER DISCHARGE: Cardiac CHECKS AFTER DISCHARGE: Checks after discharge: Check blood press - daily, Check your Temp as needed, Weigh Yourself Daily CERTIFICATION STATEMENT: Certification Statement: Certification Statement: Based on the above finding, I certify that this patient is confined to the home and needs intermittent longterm care, physical therapy and/or speech therapy, or continues to need occupational therapy.~ This patient is under my care, and I have initiated the establishment of the plan of care.~ This patient will be followed by myself or a community physician who will periodically review the plan of care. Home Meds Reported Medications Furosemide (FUROSEMIDE) 20 Mg Tablet, 1 TAB PO DAILY for CHF , #90 TAB 1 Refill 08/06/20 Potassium Chloride (KLOR-CON 10) 10 Meq Tablet.er, 1 TAB PO DAILY for supplement for 30 Days, #30 TAB 0 Refills 08/06/20 Montelukast Sodium (MONTELUKAST SODIUM TABLET ) 10 Mg Tablet, 10 MG PO HS for FOR ASTHMA, TAB 0 Refills 01/20/20 Pantoprazole Sodium (PROTONIX ) 40 Mg Tablet.dr, 40 MG PO DAILYAC for GERD, TAB 01/20/20 Multivitamin (One-Daily Multi-Vitamin) 1 Each Tablet, 1 TAB PO DAILY for supplement for 30 Days, #30 TAB 0 Refills 01/20/20 Albuterol Sulfate (ALBUTEROL SULFATE CONC NEB SOLN) 2.5 Mg/0.5 Ml Vial.neb, 1 VIAL NEB Q4HRS for SOB, #60 VIAL 1 Refill 01/20/20 Discontinued Reported Medications Nitrofurantoin Macrocrystal (NITROFURANTOIN) 100 Mg Capsule, 1 CAP PO BID for UTI, #20 CAP 08/06/20 Ondansetron Hcl (ZOFRAN) 4 Mg Tablet, 1 TAB PO Q6HRS for nausea, #20 TAB 01/20/20 Oxycodone Hcl (OXYCONTIN) 20 Mg Tab.er.12h, 10 MG PO BID for pain MDD 2 Tablet(s) for 30 Days, #30 TAB 0 Refills 01/20/20 Polyethylene Glycol 3350 (MIRALAX) 17 Gm Powd.pack, 1 PACKET PO DAILY for constipation for 2 Days, #2 PACKET 0 Refills dissolve in water 01/20/20 Psyllium Husk (METAMUCIL) 0.52 Gm Capsule, 1 CAP PO DAILY for constipation for 30 Days, #30 CAP 0 Refills 01/20/20 Hydrocodone/Acetaminophen (Hydrocodone-Acetamin 5-325 mg) 1 Each Tablet, 1 EACH PO PRN Q4HRS PRN for PAIN, TAB 01/20/20 Ferrous Sulfate (FERROUS SULFATE) 325 Mg Tablet, 1 TAB PO BID for anemia , #60 TAB 3 Refills 01/20/20 Bisacodyl (DULCOLAX) 5 Mg Tablet.dr, 5 MG PO PRN DAILY PRN for CONSTIPATION, TAB 0 Refills 01/20/20 Docusate Sodium (COLACE) 100 Mg Capsule, 1 CAP PO PRN Q12HRS PRN for CONSTIPATION for 30 Days, CAP 0 Refills 01/20/20 Acetaminophen (Acetaminophen) 650 Mg/20.3 Ml Solution, 650 MG PO PRN Q4HRS PRN for PAIN, MISC 01/20/20 SAVANNAH TRIMBLE MD Aug 08, 2020 11:53
[2020-08-08] MEDS ORDERED: ALBUTEROL SULFATE 2.5 MG/3 ML NEBU. NEB SCH (13:00)
[2020-08-08 15:00] VITALS: BP 139/52
--- NOTE | 2020-08-08 18:45 | NUR ---
DISCHARGE INSTRUCTIONS GIVEN, QUESTIONS AND CONCERNS ANSWERED, PATIENT VERBALIZED UNDERSTANDING OF DISCHARGE INFORMATION INCLUDING TAKING ALL MEDICATIONS INSTRUCTED AND FOLLOW UP WITH HER PRIMARY PROVIDER IN 1-2 WEEKS. PATIENTS DAUGHTER INFORMED OF DISCHARGE.
--- NOTE | 2020-08-08 19:22 | NUR ---
PATIENT LEAVES THE UNIT PER W/C AND ACCOMPANIED BY ELL TUTOR ON THE UNIT, EMOTIONAL SUPPORT GIVEN, FOLLOW UP APPOINTMENTS ENCOURAGED.
[2020-08-08] MEDS ORDERED: MONTELUKAST SODIUM 10 MG TABLET. PO SCH (21:00)
--- NOTE | 2020-08-08 21:34 | PDOC3 ---
Discharge Summary Visit Information Date of Admission: Aug 06, 2020 Date of Discharge: Aug 08, 2020 Admitting Diagnosis: Acute anemia Final Diagnosis Problems Medical Problems: (1) Acute anemia Status: Acute Brief Hospital Course Allergies Allergies Coded Allergies Type Severity Reaction Last Updated Verified Cephalosporins Adverse Reaction Intermediate jitters 01/02/20 Yes bupropion Adverse Reaction Intermediate chest pain 01/02/20 Yes Vital Signs Vital Signs Date Time Temp Pulse Resp B/P (MAP) Pulse Ox O2 Delivery O2 Flow Rate FiO2 08/08/20 15:00 97.1 82 18 139/52 (81) 91 Nasal Cannula 2.0 97.1 Lab Results Laboratory Tests Test 08/06/20 23:12 08/07/20 01:00 08/07/20 08:20 White Blood Count 5.4 x10^3/uL (4.0-11.0) 4.1 x10^3/uL (4.0-11.0) Red Blood Count 2.96 x10^6/uL (3.50-5.40) 3.36 x10^6/uL (3.50-5.40) Hemoglobin 6.8 g/dL (12.0-15.5) 8.2 g/dL (12.0-15.5) Hematocrit 22.5 % (36.0-47.0) 26.5 % (36.0-47.0) Mean Corpuscular Volume 76 fL (79-100) 79 fL (79-100) Mean Corpuscular Hemoglobin 23 pg (25-35) 25 pg (25-35) Mean Corpuscular Hemoglobin Concent 30 g/dL (31-37) 31 g/dL (31-37) Red Cell Distribution Width 20.8 % (11.5-14.5) 21.5 % (11.5-14.5) Platelet Count 214 x10^3/uL (140-400) 191 x10^3/uL (140-400) Neutrophils (%) (Auto) 79 % (31-73) 69 % (31-73) Lymphocytes (%) (Auto) 6 % (24-48) 12 % (24-48) Monocytes (%) (Auto) 14 % (0-9) 16 % (0-9) Eosinophils (%) (Auto) 1 % (0-3) 2 % (0-3) Basophils (%) (Auto) 0 % (0-3) 1 % (0-3) Neutrophils # (Auto) 4.2 x10^3/uL (1.8-7.7) 2.9 x10^3/uL (1.8-7.7) Lymphocytes # (Auto) 0.3 x10^3/uL (1.0-4.8) 0.5 x10^3/uL (1.0-4.8) Monocytes # (Auto) 0.8 x10^3/uL (0.0-1.1) 0.7 x10^3/uL (0.0-1.1) Eosinophils # (Auto) 0.0 x10^3/uL (0.0-0.7) 0.1 x10^3/uL (0.0-0.7) Basophils # (Auto) 0.0 x10^3/uL (0.0-0.2) 0.0 x10^3/uL (0.0-0.2) Segmented Neutrophils % 86 % (35-66) Band Neutrophils % 3 % (0-9) Lymphocytes % 4 % (24-48) Monocytes % 7 % (0-10) Platelet Estimate Adequate (ADEQUATE) Hypochromasia Slight Anisocytosis Mod Spherocytes Few Ovalocytes Occ VN-Duk-O-Type Natriuretic Peptide 4737 pg/mL (0-124) Sodium Level 135 mmol/L (136-145) Potassium Level 3.6 mmol/L (3.5-5.1) Chloride Level 100 mmol/L (98-107) Carbon Dioxide Level 28 mmol/L (21-32) Anion Gap 7 (6-14) Blood Urea Nitrogen 17 mg/dL (7-20) Creatinine 0.9 mg/dL (0.6-1.0) Estimated GFR (Cockcroft-Gault) 61.4 Glucose Level 83 mg/dL (70-99) Calcium Level 7.6 mg/dL (8.5-10.1) Phosphorus Level 3.2 mg/dL (2.6-4.7) Magnesium Level 1.6 mg/dL (1.8-2.4) Gamma Glutamyl Transpeptidase 75 U/L (5-55) Brief Hospital Course Ms Patel is a 74-year-old female with past medical history of anemia, CHF, COPD, UTIs who presents with abnormal lab values from her PCP office. 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 She also reports some dry blood and dark appearing stools that has been like this for fairly long time ever since she started taking iron tablets. But because she was so tired and was constipated she stopped taking iron tablets in the past week. She takes iron pills every other day. Denies any chest pain, abdominal pain, falls, syncope or dizziness. Denies any mark bright red blood stools or diarrhea. No recent weight loss. On further review what was noted on admission as a colonoscopy was actually an EGD in ~2016 where she had been diagnosed with esophageal strictures and had esophageal dilation at that time. Abdominal US negative for cirrhosis or gallbladder disease. GI consulted. 08/07: Hb 5.3, to 6.8 s/p 1u PRBC. Some shortness of breath afterwards. 20 mg IV Lasix was administered. Shortness of breath improved and patient is saturating 94% on 2 L nasal cannula. Hb to 8.2 after 2u PRBC total, feeling stronger, she d/w GI she does not wish to pursue further EGD and colonoscopy at this time and her SOB improved after IV lasix, mag replace, wishes for discharge home and outpatient GI f/u. Problem list: Acute symptomatic profound microcytic anemia - s/p 2u PRBC with Hb to 8.2 Acute on Chronic diastolic CHF COPD Arthritis Constipation GERD UTI - with strep bovis group, advised this could be related to possible malignancy, will treat with 5 days macrobid Greater than 30 minutes spent on d/c home with home health. Needs outpatient GI f/u Discharge Information Condition at Discharge: Improved Follow Up: Weeks (1) Disposition/Orders: D/C to Home w/ HH Scheduled Albuterol Sulfate (Albuterol Sulfate Conc Neb Soln) 2.5 Mg/0.5 Ml Vial.neb, 1 VIAL NEB Q4HRS for SOB, #60 Ref 1 (Reported) Entered as Reported by: LI HENNING on 01/20/20 1608 Last Action: Converted on 08/06/202129 by JULI MANUEL Furosemide (Furosemide) 20 Mg Tablet, 1 TAB PO DAILY for CHF , #90 Ref 1 (Reported) Entered as Reported by: TANIA COOPER on 08/06/201326 Last Taken: Unknown Dose on 08/06/20 Last Action: New Order on 08/06/201326 by TANIA COOPER Montelukast Sodium (Montelukast Sodium Tablet ) 10 Mg Tablet, 10 MG PO HS for FOR ASTHMA, Ref 0 (Reported) Entered as Reported by: LI HENNING on 01/20/20 161 Last Action: Continued on 08/08/20 1125 by SAVANNAH TRIMBLE MD Multivitamin (One-Daily Multi-Vitamin) 1 Each Tablet, 1 TAB PO DAILY for supplement for 30 Days, #30 Ref 0 (Reported) Entered as Reported by: LI HENNING on 01/20/201611 Last Action: Reviewed on 08/06/20 1324 by TANIA COOPER Pantoprazole Sodium (Protonix ) 40 Mg Tablet.dr, 40 MG PO DAILYAC for GERD, (Reported) Entered as Reported by: LI HENNING on 01/20/201611 Last Action: Reviewed on 08/06/20 132 by TANIA COOPER Potassium Chloride (Klor-Con 10) 10 Meq Tablet.er, 1 TAB PO DAILY for supplement for 30 Days, #30 Ref 0 (Reported) Entered as Reported by: TANIA OCOPER on 08/06/201326 Last Taken: Unknown Dose on 08/06/20 Last Action: New Order on 08/06/201326 by TANIA COOPER Discontinued Medications Acetaminophen (Acetaminophen) 650 Mg/20.3 Ml Solution, 650 MG PO PRN Q4HRS PRN for PAIN, (Reported) Entered as Reported by: LI HENNING on 01/20/20 160 Last Action: Discontinued on 08/06/20 1324 by TANIA COOPER Bisacodyl (Dulcolax) 5 Mg Tablet.dr, 5 MG PO PRN DAILY PRN for CONSTIPATION, Ref 0 (Reported) Entered as Reported by: LI HENNING on 01/20/20 160 Last Action: Discontinued on 08/06/20 1324 by TANIA COOPER Docusate Sodium (Colace) 100 Mg Capsule, 1 CAP PO PRN Q12HRS PRN for CONSTIPATION for 30 Days, Ref 0 (Reported) Entered as Reported by: LI HENNING on 01/20/201607 Last Action: Discontinued on 08/06/201323 by TANIA COOPER Ferrous Sulfate (Ferrous Sulfate) 325 Mg Tablet, 1 TAB PO BID for anemia , #60 Ref 3 (Reported) Entered as Reported by: LI HENNING on 01/20/201607 Last Action: Discontinued on 08/06/201323 by TANIA COOPER Hydrocodone/Acetaminophen (Hydrocodone-Acetamin 5-325 mg) 1 Each Tablet, 1 EACH PO PRN Q4HRS PRN for PAIN, (Reported) Entered as Reported by: LI HENNING on 01/20/201611 Last Action: Discontinued on 08/06/201323 by TANIA COOPER Nitrofurantoin Macrocrystal (Nitrofurantoin) 100 Mg Capsule, 1 CAP PO BID for UTI, #20 (Reported) Entered as Reported by: TANIA COOPER on 08/06/201326 Last Taken: Unknown Dose on 08/06/20 Last Action: New Order on 08/06/201326 by TANIA COOPER Ondansetron Hcl (Zofran) 4 Mg Tablet, 1 TAB PO Q6HRS for nausea, #20 (Reported) Entered as Reported by: LI HENNING on 01/20/201611 Last Action: Discontinued on 08/06/201323 by TANIA COOPER Oxycodone Hcl (Oxycontin) 20 Mg Tab.er.12h, 10 MG PO BID for pain MDD 2 Tablet(s) for 30 Days, #30 Ref 0 (Reported) Entered as Reported by: LI HENNING on 01/20/201611 Last Action: Discontinued on 08/06/201323 by TANIA COOPER Polyethylene Glycol 3350 (Miralax) 17 Gm Powd.pack, 1 PACKET PO DAILY for constipation for 2 Days, #2 Ref 0 (Reported) dissolve in water Entered as Reported by: LI HENNING on 01/20/201611 Last Action: Discontinued on 08/06/201323 by TANIA COOPER Psyllium Husk (Metamucil) 0.52 Gm Capsule, 1 CAP PO DAILY for constipation for 30 Days, #30 Ref 0 (Reported) Entered as Reported by: LI HENNING on 7/1/20 1612 Last Action: Discontinued on 08/06/20 1324 by TANIA COOPER Justicifation of Admission Dx: Justifications for Admission: Justification of Admission Dx: N/A SAVANNAH TRIMBLE MD Aug 08, 2020 21:34
[2020-08-08] MEDS ORDERED: NITR100C62 PO (22:30)
== END 2020-08-08 19:22 | disposition home or self-care (01) ==
LOC: ER 09:47 → 5 NORTH 11:33
PROVIDERS: ADMIT Internal Medicine; ATTEND Internal Medicine
DX: D64.9 Anemia, unspecified (principal); I11.0 Hypertensive heart disease with heart failure; I50.32 Chronic diastolic (congestive) heart failure; J44.9 Chronic obstructive pulmonary disease, unspecified; M19.90 Unspecified osteoarthritis, unspecified site; K59.00 Constipation, unspecified; N39.0 Urinary tract infection, site not specified; E83.42 Hypomagnesemia; F17.210 Nicotine dependence, cigarettes, uncomplicated; D50.9 Iron deficiency anemia, unspecified; K21.9 Gastro-esophageal reflux disease without esophagitis; Z79.899 Other long term (current) drug therapy; Z98.51 Tubal ligation status
CPT/HCPCS: 36415; 36430; 71045; 76705; 80048; 80053; 81001; 82274; 82977; 83735; 83880; 84100; 85007; 85025; 85027; 86850; 86900; 86901; 86920; 87077; 87086; 87186; 96365; 96366; 96375; 97110; 97162; 97165; 97530; 97535; 99284; C9113; G0378; J1940; P9016; G0379